=== PATIENT | female | born 1940 | race Caucasian/White ===

== ENCOUNTER → 2017-10-19 | Outpatient (CLI) | payer MEDICARE, BC ==
[2017-10-19 20:10] LABS: BASO % 0.3 % (0.0-1.0); HEMATOCRIT 36.8 % (36.0-47.0); HEMOGLOBIN 12.2 g/dl (12.0-16.0); IMMATURE GRANULOCYTE % 0.4 % (0-3.0); LYMPH # 0.6 10^3/uL (1.5-4.5); LYMPH % 7.4 % (24.0-44.0); MEAN CORPUSCULAR HEMOGLOBIN 34.5 pg (27.0-33.0); MEAN CORPUSCULAR HGB CONC 33.2 g/dl (32.0-36.5); MONO # 0.5 10^3/uL (0.0-0.8); MONO % 5.8 % (0.0-5.0); NEUTROPHILS # 6.7 10^3/uL (1.8-7.7); NEUTROPHILS % 86.1 % (36.0-66.0); PLATELET COUNT, AUTOMATED 156 10^3/uL (150-450); RED BLOOD COUNT 3.54 10^6/uL (4.00-5.40); RED CELL DISTRIBUTION WIDTH 14.4 % (11.5-14.5); WHITE BLOOD COUNT 7.7 10^3/uL (4.0-10.0)
[2017-10-19 20:19] LABS: ALBUMIN 3.3 GM/DL (3.2-5.2); ALBUMIN/GLOBULIN RATIO 1.32 (1.00-1.93); ALKALINE PHOSPHATASE 46 U/L (45-117); ALT/SGPT 15 U/L (12-78); ANION GAP 8 MEQ/L (8-16); AST/SGOT 20 U/L (7-37); BILIRUBIN,TOTAL 0.7 MG/DL (0.2-1.0); BLOOD UREA NITROGEN 15 MG/DL (7-18); CALCIUM LEVEL 8.3 MG/DL (8.8-10.2); CARBON DIOXIDE LEVEL 28 MEQ/L (21-32); CHLORIDE LEVEL 105 MEQ/L (98-107); CREATININE FOR GFR 0.95 MG/DL (0.55-1.30); GLOMERULAR FILTRATION RATE > 60.0 (>39); GLUCOSE, FASTING 90 MG/DL (70-100); SODIUM LEVEL 141 MEQ/L (136-145); TOTAL PROTEIN 5.8 GM/DL (6.4-8.2)
== END ==
LOC: M WUC 16:14
DX: J09.X2 Influenza due to identified novel influenza A virus with other respiratory manifestations (principal); I51.7 Cardiomegaly; J11.1 Influenza due to unidentified influenza virus with other respiratory manifestations
CPT/HCPCS: 80053

== ENCOUNTER → 2017-10-19 | Outpatient (CLI) | payer MEDICARE, BC | LOC: M WUC 16:08 | DX: I51.7 Cardiomegaly (principal); J11.1 Influenza due to unidentified influenza virus with other respiratory manifestations | CPT/HCPCS: 71046 ==

== ENCOUNTER → 2017-11-18 | Outpatient (REF) | payer MEDICARE, BC ==
[2017-11-18 15:56] LABS: C REACTIVE PROTEIN QUANTITATIV < 0.30 MG/DL (0.00-0.30)
[2017-11-18 16:25] LABS: ERYTHROCYTE SEDIMENTATION RATE 15 mm/hr (0-30)
== END ==
LOC: M LABDRAW1 14:06
DX: M31.6 Other giant cell arteritis (principal)
CPT/HCPCS: 86140

== ENCOUNTER → 2018-02-16 | Outpatient (REF) | payer MEDICARE, BC ==
[2018-02-16 15:13] LABS: URIC ACID 3.7 MG/DL (2.6-6.0)
== END ==
LOC: M LAB REF 13:05
DX: M10.9 Gout, unspecified (principal)
CPT/HCPCS: 84550

== ENCOUNTER → 2018-07-10 | Outpatient (CLI) | payer MEDICARE, BC | LOC: M WUC 17:01 | DX: J45.901 Unspecified asthma with (acute) exacerbation (principal); R06.02 Shortness of breath | CPT/HCPCS: 71046 ==

== ENCOUNTER → 2018-08-19 | Outpatient (REF) | payer MEDICARE, BC ==
[~2018-08-19] MED LIST: /WARF25TA; /WARF5TA; ACET65TA; ATEN25TA; ATEN50TA2; BABY81CH; BENI20TA11; COLA100C2; DIPROLENE; FERR325T; FURO20TA2; HYDR25TA6; LASI20TA; MAGN500T2; MILKSUS; MIRALEX; MULTIVIT; OMEP20TA7; OXYC10TA97; PRED10TA2; SIMV40TA2; SPIR25TA2; VICO5TAB; [UNRECOGNIZED DRUG - OTHER]; dulcolax
== END ==
LOC: M LAB REF 12:35
PROVIDERS: ATTEND Internal Medicine
DX: M10.072 Idiopathic gout, left ankle and foot (principal)

== ENCOUNTER → 2018-10-06 | Outpatient (CLI) | payer MEDICARE, BC ==
--- NOTE | 2018-10-06 13:27 | REP ---
TRIPLE PHASE BONE SCAN OF PELVIS AND HIPS: Following the intravenous administration of 22 mCi of technetium-99m MDP, patient's pelvis and hips are imaged in the flow phase in the anterior and posterior projections showing symmetrical blood flow. Immediate blood pool and 3 hour delayed images are performed of the pelvis and hips in multiple projections. There is no abnormal blood pooling. Delayed images show a photopenic area in the proximal left femur from a metallic prosthesis. No abnormal adjacent osseous uptake is seen. There is no occult fracture. There is no evidence of significant loosening or infection of the left hip prosthesis. IMPRESSION: Evidence of left hip prosthesis. No evidence of occult fracture, loosening, or infection. Electronically Signed by Jakub Whitlock MD 10/06/2018 01:34 P
== END ==
LOC: M RAD 08:44
PROVIDERS: ATTEND Physician Assistant Surgical
DX: Z96.642 Presence of left artificial hip joint (principal)
CPT/HCPCS: 78315; A9503

== ENCOUNTER → 2019-02-18 | Outpatient (REF) | payer MEDICARE, BC ==
[~2019-02-18] MED LIST changes: -/WARF25TA; -/WARF5TA; +COUM1TAB17; +COUM1TAB18
== END ==
LOC: M LAB REF 12:38
PROVIDERS: ATTEND Internal Medicine
DX: M10.072 Idiopathic gout, left ankle and foot (principal)

== ENCOUNTER → 2019-09-05 | Outpatient (CLI) | payer MEDICARE, BC ==
--- NOTE | 2019-09-05 12:31 | REP ---
LUMBAR SPINE SERIES: FIVE VIEWS. HISTORY: Pain. FINDINGS: Lumbar vertebral body heights are preserved, alignment is normal. There is extensive vascular calcification in a normal caliber aorta. There is degenerative disc disease at L5-S1 and, to a lesser extent, at the other lumbar levels. Discogenic spurring is seen at L2-3 and L1-2. There is mild wedging in the T11 vertebral body. There is osteoarthritic facet sclerosis, narrowing, and hypertrophy at L5-S1 and L4-5 bilaterally. Sacrum and SI joints are intact. There is a hip prosthesis noted on the left. Bowel gas pattern is normal. IMPRESSION: Degenerative disc and osteoarthritic facet disease, as noted above. No acute abnormality. Mild anterior wedging at T11 noted incidentally. Electronically Signed by Nicholas Mina MD 09/05/2019 01:24 P
== END ==
LOC: M WUC 10:33
PROVIDERS: ATTEND Internal Medicine
DX: M54.5 Low back pain (principal); M51.36 Other intervertebral disc degeneration, lumbar region; M53.82 Other specified dorsopathies, cervical region

== ENCOUNTER → 2019-11-30 | Outpatient (CLI) | payer MEDICARE, BC ==
--- NOTE | 2019-11-30 16:42 | REP ---
Chest x-ray: Two views. History: Short of breath. Comparison chest x-ray: July 10, 2018. Findings: The lungs are well inflated. No infiltrate is seen. Pleural angles are sharp. Heart size is borderline, unchanged. The aorta is heavily calcified and tortuous. Central pulmonary arteries are somewhat prominent, question pulmonary arterial hypertension. This is unchanged. There are degenerative changes in the thoracic spine. Impression: Borderline heart size. Centrally prominent pulmonary arterial tree, question pulmonary arterial hypertension. Unchanged. No acute infiltrate. Electronically Signed by Nicholas Mina MD 11/30/2019 05:08 P
[2019-11-30 20:29] LABS: BASO # 0.1 10^3/uL (0.0-0.2); BASO % 0.5 % (0.0-1.0); EOS % 0.2 % (0.0-3.0); HEMATOCRIT 36.8 % (36.0-47.0); HEMOGLOBIN 11.5 g/dl (12.0-15.5); LYMPH # 1.8 10^3/uL (1.5-5.0); LYMPH % 16.2 % (24.0-44.0); MEAN CORPUSCULAR HEMOGLOBIN 34.1 pg (27.0-33.0); MEAN CORPUSCULAR HGB CONC 31.3 g/dl (32.0-36.5); MEAN CORPUSCULAR VOLUME 109.2 fl (80.0-96.0); MONO # 0.9 10^3/uL (0.0-0.8); MONO % 7.7 % (0.0-5.0); NEUTROPHILS # 8.1 10^3/uL (1.5-8.5); NEUTROPHILS % 71.1 % (36.0-66.0); PLATELET COUNT, AUTOMATED 215 10^3/uL (150-450); RED BLOOD COUNT 3.37 10^6/uL (4.00-5.40); WHITE BLOOD COUNT 11.4 10^3/uL (4.0-10.0)
[2019-11-30 20:34] LABS: CREATININE FOR GFR 1.08 MG/DL (0.55-1.30); GLOMERULAR FILTRATION RATE 52.1 (>39); POTASSIUM SERUM 4.2 MEQ/L (3.5-5.1)
== END ==
LOC: M WUC 16:01
PROVIDERS: ATTEND Nurse Practitioner Family
DX: I28.8 Other diseases of pulmonary vessels (principal); R06.02 Shortness of breath; R60.9 Edema, unspecified

== ENCOUNTER 2019-12-15 12:34 | Inpatient (IN) | payer MEDICARE, BC ==
[~2019-12-15] VITALS: Ht 152.4 cm; Wt 88.0 kg
[~2019-12-15 12:34] MED LIST changes: -ACET1TAB55 PO; -FURO20TA2 PO; -OLME20TA2 PO; +OLMESARTAN MEDOXOMIL 20 MG TAB (BENICAR) PO SCH; -OMEP-218 PO; -RALO1TAB PO; -SIMV40TA20 PO; -SPIR-10 PO
[2019-12-15 13:50] LABS: BASO % 0.3 % (0.0-1.0); EOS # 0.1 10^3/uL (0.0-0.5); EOS % 1.1 % (0.0-3.0); HEMATOCRIT 34.8 % (36.0-47.0); LYMPH # 1.4 10^3/uL (1.5-5.0); MEAN CORPUSCULAR HEMOGLOBIN 34.1 pg (27.0-33.0); MEAN CORPUSCULAR HGB CONC 31.6 g/dl (32.0-36.5); MEAN CORPUSCULAR VOLUME 107.7 fl (80.0-96.0); MONO # 0.5 10^3/uL (0.0-0.8); MONO % 7.6 % (0.0-5.0); NEUTROPHILS # 4.2 10^3/uL (1.5-8.5); NEUTROPHILS % 67.2 % (36.0-66.0); PLATELET COUNT, AUTOMATED 173 10^3/uL (150-450); RED BLOOD COUNT 3.23 10^6/uL (4.00-5.40); WHITE BLOOD COUNT 6.2 10^3/uL (4.0-10.0)
[2019-12-15] MEDS: SLF 3 ML SYR IV SCH ×2 (14:00→20:05)
[2019-12-15 14:03] LABS: INR 1.12; PROTHROMBIN TIME 14.1 SECONDS (11.8-14.0)
[2019-12-15 14:04] LABS: PARTIAL THROMBOPLASTIN TIME 29.1 SECONDS (25.0-38.4)
[2019-12-15 14:15] LABS: MAGNESIUM LEVEL 0.6 MG/DL (1.8-2.4); PHOSPHORUS LEVEL 3.8 MG/DL (2.5-4.9)
--- NOTE | 2019-12-15 14:21 | REP ---
Bilateral lower extremity Duplex Doppler venous ultrasound: Real time compression and duplex Doppler interrogation of the bilateral lower extremity deep venous system is performed. Bilaterally, the common femoral, superficial femoral and popliteal veins are fully compressible with transducer pressure and demonstrate normal spontaneous and phasic flow, without evidence of deep venous thrombosis. Impression: No evidence of deep venous thrombosis of the bilateral lower extremity femoral popliteal venous system. Electronically Signed by Jakub Whitlock MD 12/15/2019 02:12 P
[2019-12-15 14:23] LABS: ALBUMIN 2.8 GM/DL (3.2-5.2); ALT/SGPT 15 U/L (12-78); BILIRUBIN,DIRECT 0.1 MG/DL (0.0-0.2); BILIRUBIN,TOTAL 0.4 MG/DL (0.2-1.0); BLOOD UREA NITROGEN 36 MG/DL (7-18); CALCIUM LEVEL 6.8 MG/DL (8.8-10.2); CARBON DIOXIDE LEVEL 27 MEQ/L (21-32); CHLORIDE LEVEL 108 MEQ/L (98-107); CK-MB VALUE MASS 1.5 NG/ML (<3.6); CPK CREATINE PHOSPHOKINASE 111 U/L (26-192); CREATININE FOR GFR 1.32 MG/DL (0.55-1.30); GLOMERULAR FILTRATION RATE 41.3 (>39); GLUCOSE, FASTING 80 MG/DL (70-100); MB/CK RELATIVE INDEX 1.35 (< OR =4); NT-PRO BNP 813 PG/ML (<450); POTASSIUM SERUM 3.8 MEQ/L (3.5-5.1); SODIUM LEVEL 140 MEQ/L (136-145); TOTAL PROTEIN 6.4 GM/DL (6.4-8.2); TROPONIN I < 0.02 NG/ML (< 0.10)
[2019-12-15] MEDS ORDERED: ACET1TAB55 PO (14:37)
[2019-12-15] MEDS ORDERED: OLME20TA2 PO (14:37)
[2019-12-15] MEDS ORDERED: FURO20TA2 PO (14:38)
[2019-12-15] MEDS ORDERED: SPIR-10 PO (14:38)
[2019-12-15] MEDS ORDERED: SIMV40TA20 PO (14:38)
[2019-12-15] MEDS ORDERED: ATEN25TA PO (14:38)
[2019-12-15] MEDS ORDERED: OMEP-218 PO (14:38)
[2019-12-15] MEDS ORDERED: RALO1TAB PO (14:40)
--- NOTE | 2019-12-15 14:41 | REP ---
REASON: Cough and dyspnea. COMPARISON: 11/30/2019 The technique utilized in obtaining the radiograph has magnified the cardiac silhouette and accentuated the interstitial markings. No acute patchy parenchymal opacities or pleural effusions have developed since the last exam. The cardiac silhouette is magnified by technique. The osseous structures are stable and intact. IMPRESSION: No significant change other than technique. There is no evidence of acute cardiopulmonary disease. Prominent central pulmonary venous engorgement suspected on the prior examination appears less prominent on this portable examination. Electronically Signed by Calos Redman DO 12/15/2019 04:24 P
[2019-12-15] MEDS ORDERED: MAG SULF 1GM/100ML (MAG RUN) 1 GM in IV 1 EA IV ONE ×5 (15:00→15:15)
[2019-12-15] MEDS ORDERED: MAGNESIUM OXIDE 400 MG TAB (MAG-OX) PO ONE (15:00)
[2019-12-15] MEDS ORDERED: ACETAMINOPHEN TAB 650MG DOSE (2X325MG) PO PRN (15:15)
[2019-12-15] MEDS ORDERED: MAGNESIUM SULFATE 1GM/100ML D5W BAG (10MG/ML) As Ordered ONE (16:29)
[2019-12-15] MEDS ORDERED: SLF 3 ML SYR IV PRN (17:45)
[2019-12-15 17:47] VITALS: BP 154/61
--- NOTE | 2019-12-15 18:51 | HPEPDOC ---
General Date of Admission Dec 15, 2019 at 15:01 Date of Service: Dec 15, 2019 Attending Physician: JOHNNY DUFFY MD Chief Complaint The patient is a 79-year-old female admitted with a reason for visit of Hypocalcemia. Source: Patient Exam Limitations: No limitations Timing/Duration: Week(s) Severity: Severe Associated Symptoms: Other (arthralgias and myalgias) History of Present Illness 79 yo W with a remote history of cervical, uterine and ovarian CA >30y ago, HTN, HLD, osteoporosis and long standing history of LE edema that has progressive gotten worse over time and most recently her PCP has been trying to manage with uptitration of lasix and aldactone without my improvement who presented to per PCP with profound generalized body aches of a few weeks duration as well SOB and on labs was found to have a MAg of 0.4 and thus send to the ED. In the ED, she arrived hemodynamically stable and afebrile and initial workup revealed a mag of 0.6, Ca 6.8, K 3.8, Cr 1.32, Na 140, phos 3.8, proBNP of 813 which is lower than previously recorded with an EKG that was NSR with frequent PVCs (not AFib) while troponin was wnl. She had CXR that was unremarkable and LE dopplers that did not reveal a DVT. Due to her SOB, body aches she was ordered for respiratory panel and covid-19 studies. her WBC was otherwise 6.2, hgb 11 and LFTs were wnl. I am now admitting her for profound hypomagnesemia that was likely precipitated by her combination loop diuretic and aldactone. She report one glass of wine nightly without excessive alcohol, prior smoking history and no recent history of N/V/D. Home Medications Scheduled Atenolol (Atenolol) 25 Mg Tablet, 25 MG PO QHS, (Reported) Furosemide (Furosemide) 20 Mg Tablet, 20 MG PO BID, (Reported) 0700 and noon Olmesartan Medoxomil (Olmesartan Medoxomil) 20 Mg Tablet, 20 MG PO DAILY, ( Reported) Omeprazole (Omeprazole) 20 Mg Capsule.dr, 20 MG PO QHS, (Reported) Raloxifene HCl (Raloxifene HCl) 60 Mg Tablet, 60 MG PO DAILY, (Reported) Simvastatin (Simvastatin) 40 Mg Tablet, 40 MG PO QHS, (Reported) Spironolactone (Spironolactone) 25 Mg Tablet, 25 MG PO DAILY, (Reported) Scheduled PRN Acetaminophen (Acetaminophen) 325 Mg Tablet, 325 MG PO DAILY PRN for PAIN, (Reported) Allergies Coded Allergies: atorvastatin (Verified Allergy, Intermediate, 12/15/19) Uncoded Allergies: something with a "p" for pain (Allergy, Intermediate, 12/15/19) " some" antibiotic (Allergy, Unknown, 12/15/19) Past Medical History Medical History cervical, uterine and ovarian CA >30y ago, HTN, HLD, osteoporosis and long standing history of LE edema that has progressive gotten worse over time and most recently her PCP has been trying to manage with uptitration of lasix and aldactone Surgical History Exploratory lap christ hysterectomy L total hip arthroplasty Family History Significant Family History: Cancer (Very significant history of cancer in her mother and all her biological sisters. She has never been tested for a familial cancer syndrome despite uterine, ovarian and cervial CA in her 30-40s.) Social History * Smoker: former Smoker Alcohol: other (daily glass of wine before bed) Drugs: denies Lives alone and completely independent with all aspects of her life. Daughter lives close by in town. A-FIB/CHADSVASC A-FIB History Current/History of A-Fib/PAF?: No Current PO Anticoag Therapy: No Age/Risk Factor Scoring CHADSVASC: CHADSVASC Response (Comments) Value Age Risk Factor Age >/= 75 years old 2 Gender Risk Factor Female 1 Hx of CHF No 0 Hx of HTN Yes 1 Hx of Stroke/TIA/or VTE No 0 Hx of Diabetes No 0 Hx of Vascular Disease No 0 Total 4 Treatment Treatment ordered: NONE Reason Anticoagulant not given: Not indicated/[id number] Review of Systems Constitutional: Denies: Chills, Fever, Night Sweats Eyes: Denies: Pain, Vision change ENT: Denies: Head Aches, Ear Pain, Dysphagia Skin: Denies: Rash, Lesions, Breakdown Pulmonary: Reports: Dyspnea; Denies: Cough, Pleuritic Chest Pain Cardiovascular: Denies: Chest Pain, Palpitations, Orthopnea, Paroxysmal Noc. Dyspnea, Lt Headedness Gastrointestinal: Denies: Nausea, Vomiting, Abdominal Pain, Diarrhea Genitourinary: Denies: Dysuria, Frequency, Incontinence, Retention Hematologic: Denies: Bruising, Bleeding Excessively Endocrine: Denies: Polydipsia, Polyphagia, Polyuria, Heat Intolerance, Cold Intolerance, Other Endocrine Sx Musculoskeletal: Reports: Back Pain (chronic), Joint Pain, Muscle Pain Neurological: Denies: Weakness, Numbness, Change in speech, Confusion Psych: Reports: Mood Normal; Denies: Depression, Memory Issues Physical Examination General Exam: Positive: Alert, No Acute Distress Eye Exam: Positive: PERRLA, Conjunctiva & lids normal, EOMI; Negative: Sclera icteric ENT Exam: Positive: Atraumatic, Mucous membr. moist/pink, Pharynx Normal Neck Exam: Positive: Supple; Negative: JVD, thyromegaly Chest Exam: Positive: Clear to auscultation, Normal air movement Heart Exam: Positive: Rate Normal, Regular Rhythm (with significant PVC and PAC load), Normal S1, Normal S2; Negative: Murmurs, Rubs Telemetry: Positive: Sinus, PVCs Abdomen Exam: Positive: Normal bowel sounds, Soft, Other (obese); Negative: Tenderness, Hepatospenomegaly Extremity Exam: Positive: Edema (2+ dependent edemat to midshins) Skin Exam: Positive: Nl turgor and temperature; Negative: Breakdown, Lesion Neuro Exam: Positive: Normal Gait, Normal Speech, Strength at 5/5 X4 ext, Cranial Nerves 3-12 NL Psych Exam: Positive: Mental status NL, Mood NL, Oriented x 3 Vital Signs Vital Signs Date Time Temp Pulse Resp B/P (MAP) Pulse Ox O2 Delivery O2 Flow Rate FiO2 12/15/19 18:00 95 Nasal Cannula 2.0 12/15/19 17:47 97.0 78 154/61 (92) 12/15/19 17:31 99 Laboratory Data Labs 24H Laboratory Tests 2 12/15/19 13:15: Immature Granulocyte % (Auto) 0.8, Neutrophils (%) (Auto) 67.2H, Lymphocytes (%) (Auto) 23.0L, Monocytes (%) (Auto) 7.6H, Eosinophils (%) (Auto) 1.1, Basophils (%) (Auto) 0.3, Neutrophils # (Auto) 4.2, Lymphocytes # (Auto) 1.4L, Monocytes # (Auto) 0.5, Eosinophils # (Auto) 0.1, Basophils # (Auto) 0.0, Nucleated Red Blood Cells % (auto) 0.0, Prothrombin Time 14.1H, Prothromb Time International Ratio 1.12, Activated Partial Thromboplast Time 29.1, Anion Gap 5L, Glomerular Filtration Rate 41.3, Calcium Level 6.8L, Phosphorus Level 3.8, Magnesium Level 0.6*L, Total Bilirubin 0.4, Direct Bilirubin 0.1, Aspartate Amino Transf (AST/SGOT) 15, Alanine Aminotransferase (ALT/SGPT) 15, Alkaline Phosphatase 58, Total Creatine Kinase 111, Creatine Kinase MB 1.5, Creatine Kinase MB Relative Index 1.35, Troponin I < 0.02, TM-Sgk-A-Type Natriuretic Peptide 813H, Total Protein 6.4, Albumin 2.8L, Albumin/Globulin Ratio 0.78L, Thyroid Stimulating Hormone (TSH) 1.490 12/15/19 16:20: Coronavirus (COVID-19)(PCR) NEGATIVE CBC/BMP Laboratory Tests 12/15/19 13:15 Microbiology Microbiology 12/15/19 Respiratory Virus Panel (PCR) ([facility]) - Final, Complete 12/15/19 Blood Culture, Received Pending 12/15/19 Blood Culture, Received Pending Assessment/Plan 79 yo W with a remote history of cervical, uterine and ovarian CA >30y ago, HTN, HLD, osteoporosis and long standing history of LE edema that has progressive gotten worse over time and most recently her PCP has been trying to manage with uptitration of lasix and aldactone without my improvement who presented to per PCP with profound generalized body aches of a few weeks duration as well SOB and on labs was found to have a MAg of 0.4 and thus send to the ED and now admitted for profound hypomagnesemia likely precipitated by her combination loop diuretic and aldactone. Hypomagnesemia: Most likely 2/2 loop + potassium sparing diuretics, less likely to be syndromic given no prior history though it should be noted that Ca is low as well. Unlikely 2/2 excessive alcohol given history and unlikely GI losses given no GI complaints or symptoms. -s/p 3g mag in the ED, recheck now -telemetry monitoring -hold all diuretics Generalized body aches: Likely a result of hypomagnesemia and also on raloxifene for her osteoporosis that has such side effects. -replete mag aggressively HypoCa: -gave 1g Ca gluconate, recheck in the morning LE edema: No official diagnosis of CHF or known etiology with diuresis by PCP outpatient -will officially consult Dr. Harrison -TTE -EKG with no ischemic signs and trop negative while proBNP is elevated by lower than previously noted -Will hold off diuresis for now as we replete lytes and await TTE -Of note, albumin <3 though unlikely that low oncotic pressure would be the sole culprit HTN: -continue home ARB for now SOB: No evidence of hypoxemia at this time though she was placed on oxygen in the ED with clear CXR, no fevers, no travel and baseline WBC. -follow up resp PCR and Covid testing HLD: -continue simvastatin GERD: -continue home omeprazole DVT ppx: lovenox Diet: regular Plan / VTE VTE Prophylaxis Ordered?: Yes JOHNNY DUFFY MD Dec 15, 2019 18:50
[2019-12-15] MEDS ORDERED: CALCIUM GLUCONATE 1,000 MG in D5W MINI-BAG PLUS 100 ML IV ONE (19:00)
[2019-12-15 20:00] VITALS: BP 139/64
[2019-12-15] MEDS: ENOXAPARIN 40MG/0.4ML SYRINGE (J1650 PER 10MG) SC SCH (20:02)
[2019-12-15] MEDS: SIMVASTATIN 40 MG TAB PO SCH (20:04)
[2019-12-15] MEDS: OMEPRAZOLE 20 MG CAP PO SCH (20:04)
[2019-12-15] MEDS: atenoloL 25 MG TAB PO SCH (20:04)
[2019-12-15] MEDS: OLMESARTAN MEDOXOMIL 20 MG TAB (BENICAR) PO SCH (20:04)
--- NOTE | 2019-12-15 20:49 | ECGEPIP ---
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
[2019-12-16] VITALS: BP 133/53
[2019-12-16 04:00] VITALS: BP 150/65
[2019-12-16 06:10] LABS: HEMATOCRIT 32.4 % (36.0-47.0); HEMOGLOBIN 10.5 g/dl (12.0-15.5); MEAN CORPUSCULAR HEMOGLOBIN 35.4 pg (27.0-33.0); MEAN CORPUSCULAR HGB CONC 32.4 g/dl (32.0-36.5); MEAN CORPUSCULAR VOLUME 109.1 fl (80.0-96.0); PLATELET COUNT, AUTOMATED 163 10^3/uL (150-450); RED BLOOD COUNT 2.97 10^6/uL (4.00-5.40); WHITE BLOOD COUNT 5.8 10^3/uL (4.0-10.0)
[2019-12-16] MEDS: SLF 3 ML SYR IV SCH ×3 (06:38→21:26)
[2019-12-16 06:39] LABS: ALBUMIN 2.5 GM/DL (3.2-5.2); BILIRUBIN,TOTAL 0.6 MG/DL (0.2-1.0); CALCIUM LEVEL 7.1 MG/DL (8.8-10.2); CREATININE FOR GFR 1.22 MG/DL (0.55-1.30); GLOMERULAR FILTRATION RATE 45.3 (>39); MAGNESIUM LEVEL 1.7 MG/DL (1.8-2.4); POTASSIUM SERUM 4.8 MEQ/L (3.5-5.1); TOTAL PROTEIN 5.3 GM/DL (6.4-8.2)
[2019-12-16] MEDS ORDERED: CALCIUM GLUCONATE 1,000 MG in D5W MINI-BAG PLUS 100 ML IV ONE (07:30)
[2019-12-16] MEDS ORDERED: CALCIUM CARBONATE 500 MG CHEW U/D PO ONE (07:30)
[2019-12-16 08:00] VITALS: BP 106/46
[2019-12-16 08:08] LABS: PTH INTACT 270.2 PG/ML (18.5-88.0)
[2019-12-16] MEDS: ENOXAPARIN 40MG/0.4ML SYRINGE (J1650 PER 10MG) SC SCH ×2 (09:00→21:00)
[2019-12-16] MEDS: MAG SULF 1GM/100ML (MAG RUN) 1 GM in IV 1 EA IV SCH ×3 (09:29→12:02)
[2019-12-16 11:58] VITALS: BP 133/62
[2019-12-16 16:00] VITALS: BP 148/70
--- NOTE | 2019-12-16 16:19 | IPNPDOC ---
Text Note Date of Service The patient was seen on 12/16/19. NOTE S: Pt examined at bedside. Feels much improved today, almost back to her baseline. Has more energy, leg cramps are minimal. Ambulated from bed to the bathroom with mild shortness of breath. No events overnight. Continues to have ectopy on telemetry, patient asymptomatic. Denies chest pain, lightheadedness, dizziness, palpitations. PE: Vitals: see below General: NAD, A&Ox3, resting comfortably HEENT: NCAT, EOMI, anicteric sclera, MMM, neck supple without JVD CV: RRR, 2/6 murmur, no clicks or rub. 2-3+ edema b/l LE RESP: CTAB, no w/r/r, comfortably breathing on room air ABD: soft, NT, ND. Benign EXTREMITIES: 2+ radial pulses b/l, able to move all extremities NEURO: no focal deficits. Follows commands SKIN: no visible lesions A/P: This is a 79-year-old female sent in by her PCP due to dangerously low magnesium of 0.6 and calcium 6.8. Patient's only complaints were leg cramps, edema, and shortness of breath that her chronic for the past few years, recently worsened over the past few weeks. Per patient, her diuretics had been uptitrated over the past couple weeks in attempts to control her edema. 1. Hypocalcemia, hypomagnesemia -Magnesium 0.6 and calcium 6.8 on admission, improving with supplement -Patient is hemodynamically stable and only complains of muscle cramps more in the lower legs -Likely multifactorial: increasing diuretics in outpatient setting and CKD; likely also VitD defic -PTH appropriately elevated -Continue supplementation and trend levels: IV Calcium gluconate & IV Mag -Monitor telemetry; hold home diuretics until levels normalize 2. Lower extremity edema, dyspnea -Patient reports this is in chronic for the past few years, recently worsened over the past couple weeks -Blood cultures and respiratory panel & COVID testing negative. No fevers or leukocytosis -Likely 2/2 right-sided heart failure. CXR notes prominent central pulmonary vein -No cardiac records available. No echo on file -Echo ordered. Continue monitoring telemetry and strict I's and O's and daily weight -Will resume diuretics once electrolytes are improved 3. Ectopic beats, bigeminy -Noted on telemetry and EKG. Cardiac markers negative -Likely 2/2 electrolyte abnormality. Patient otherwise asymptomatic -Given her electrolyte abnormalities and patient requiring resumption of diuretics ultimately, Cardio consulted -Dr. Harrison to see patient, appreciate input -Continue monitoring on telemetry 4. Leg cramps -Likely 2/2 electrolytes abnormalities and significant lower extremity edema -Bilateral Doppler on admission negative for DVT -Improving with electrolyte replacement. Monitor 5. Likely CKD 3 -No prior labs available to compare to -Trend renal function monitor Hypertension Controlled, continue home meds, holding diuretics GERD Continue PPI Dyslipidemia Continue statin DVT ppx: Lovenox SC DISPO: Pending clinical improvement with home PT, OT, cardio consult. VS,Fishbone, I+O VS, Fishbone, I+O Laboratory Tests 12/16/19 05:47 Vital Signs Date Time Temp Pulse Resp B/P (MAP) Pulse Ox O2 Delivery O2 Flow Rate FiO2 12/16/19 12:00 0.5 12/16/19 11:58 97.4 66 22 133/62 (85) 94 Nasal Cannula I&O- Last 24 Hours up to 6 AM 12/16/19 06:00 Intake Total 590 ml Output Total 550 ml Balance 40 ml GME ATTESTATION GME ATTESTATION My faculty preceptor for this patient encounter was physically present during the encounter and was fully available. All aspects of the patient interview, examination, medical decision making process, and medical care plan development were reviewed and approved by the faculty preceptor. The faculty preceptor is aware and concurs with the plan as stated in the body of this note and will attest to such by his/her cosignature. ATTENDING NOTE I, Ariella Duffy, have independently examined this patient and performed my own physical exam, as well as reviewed the documentation and edited where necessary. I have discussed in detail with the resident / student the findings and plan of treatment as documented by the resident / student and edited their note. I agree with their findings and treatment plan and have edited their documentation. Ms. Barth feels much better today and her electrolytes are correcting well. Unfortunately with all the volume from IV electrolyte repletion and holding of diuretics, her LE edema is worse. She is pending TTE and we officially consulted Dr. Harrisno. Her PAC load remained high today with rare PVCs. We will continue to follow the patient during this hospital stay. SERJIO JUARES DO Dec 16, 2019 16:19 ARIELLA DUFFY MD Dec 17, 2019 07:37
--- NOTE | 2019-12-16 16:54 | CR.PDOC ---
[facility] Cardiology Consultation Date of Consultation 12/16/19 Cadiology Consultation REFERRING PHYSICIAN: Dr. Ariella Rodriges M.D., Ph.D. REASON FOR REFERRAL: Bilateral lower extremity edema; frequent PVCs HISTORY OF PRESENT ILLNESS: Delia is a pleasant 79-year-old female with history of hypertension, hyperlipidemia, chronic bilateral lower extremity edema, and remote history (>30y ago) of ovarian, uterine, and cervical cancer who presented to the emergency department yesterday after being sent over by her primary care physician due to hypomagnesemia (Mg 0.4), shortness of breath, lower extremity aches and skin sensitivity with chronic bilateral edema. In the ED, she was found to also have hypocalcemia (6.8), BNP 813, Cr 1.32 (bl roughly 1), Hgb 11.0/MCV 107, EKG with normal heart rate and frequent PVCs, and unremarkable cardiac enzymes. Portable chest x-ray showed no acute cardiopulmonary disease, and no evidence of DVT in either lower extremity on ultrasound. Patient was subsequently admitted and the primary hospitalist service consulted cardiology in the evaluation and care specific to patient's abnormal heartbeats, and etiology of her lower extremity edema. To this point, patient has received four, 100 mL IV mag sulfate doses (1 given today) and one, 1g stat Mg run; 800 mg of oral mag oxide; two, 110 mL calcium gluconate IV doses (1 given today); one dose of 1000 mg calcium carbonate. She is currently also receiving oral atenolol (25 mg qhs), simvastatin (40mg qhs), and omeprazole (20mg qhs). Per medical record, patient refused her scheduled olmesartan (40mg qhs) and Lovenox (40 mg q12h) administration since being admitted. Her home spironolactone and furosemide were held due to the acute electrolyte abnormalities. Patient currently endorses exertional dyspnea only, but denies any increased work of breathing, pleuritic chest pain, and cough. Upon ambulation to the bathroom last night, her sats dropped into the 80s and she was subsequently put on 4 L nasal cannula. She was weaned off supplemental oxygen overnight and through the first half of the day today. She is now breathing on room air. She also endorses bilateral lower extremity skin sensitivity and "bone pain" on the outside of her legs. In addition, she currently denies any chest pain, chest pressure, palpitations, syncope, lightheadedness, or dizziness. PAST MEDICAL: Hypertension Hyperlipidemia Chronic lower extremity edema Remote history of uterine, ovarian, and cervical cancer (>30 years ago, patient was in 30s and 40s) Osteoporosis SURGICAL HISTORY: Cardiac catheterization, 1983- no stents or balloon angioplasty place/performed Hysterectomy Cholecystectomy Left total hip arthroplasty FAMILY HISTORY: Significant cancer history in mother and sisters SOCIAL HISTORY: Mother of 4 children (2 sons, 2 daughters) Lives alone with one daughter that lives nearby Former cigarette smoker who smoked roughly a pack per day for 62 years Drinks a glass of wine daily before bed Denies illicit drug history REVIEW OF SYSTEMS: Please see detailed pertinent positives and negatives in HPI. All other 10 point review of systems questions negative. PHYSICAL EXAMINATION: VITAL SIGNS: Please see below. GENERAL APPEARANCE: Pleasant elderly female who appears stated age. Lying upright in bed at time of exam. Obese habitus. Alert and oriented 3. NAD. HEENT: Normocephalic, atraumatic. Wearing eyeglasses. Noninjected and anicteric sclera. NECK: Supple. Trachea midline. No significant elevated jugular venous pressure (approx 2cm superior to clavicle) EXTREMITIES: Skin of bilateral lower extremities warm to the touch with moderate surrounding erythema. Bilateral calf tenderness. NEUROLOGIC: Alert and oriented 3. No focal neurological deficits appreciated. Responding appropriate to questions and commands. PSYCHOLOGIC: Pleasant individual with mildly anxious mood. Affect appears appropriate. RESPIRATORY: Right upper to middle lobe. Findings were crackles. Slight audible wheeze. Mildly tachypneic. Somewhat diminished tidal volume with moderate use of accessory muscles. Breathing on room air. Speaking in full sentences. HEART: Controlled heart rate with trigeminy on remote telemetry. One isolated PVC while observing monitor. 2/6 systolic murmur heard upon b/l carotid auscultation and heard best over the second intercostal space parasternally. 2-3 sec capillary refill. ARTERIAL PULSES: 2+ b/l radial pulses; difficult to appreciate for b/l post tibial pulses d/t LE & pedal edema LOWER EXTREMITY EDEMA: 3+ pitting edema of b/l LEs with b/l 2+ pitting pedal edema. ABDOMEN: Soft, obese. Nontender and nondistended. Positive bowel sounds. Difficult to appreciate for hepatosplenomegaly due to habitus. ALLERGIES: Please see below. HOME MEDICATIONS: Please see below. CURRENT MEDICATIONS: Please see below. Electrocardiogram: EKG on 12/15/19 showed sinus rhythm with frequent supraventricular complexes and PVCs. LABORATORY DATA: Please see below. IMAGING: Portable chest x-ray, 12/15/19: Showed no acute cardiopulmonary Rosses with decrease in engorgement of central pulmonary vein from previous study on 11/30/19. Bilateral lower extremity Doppler ultrasound, 12/15/19: Showed no DVT in bilateral lower extremities. ASSESSMENT/PLAN: Delia is a 79-year-old female with history of chronic lower extremity edema, hypertension, hyperlipidemia who was admitted for significant electrolyte abnormalities (primarily hypomagnesemia) with frequent PVCs. The main focus from a cardiology perspective at this time is the etiology of the patient's PVCs. The three most common causes of PVCs are electrolyte disturbances, ischemia, and cardiomyopathies. The patient's electrolyte abnormalities are currently being corrected, there does not appear to be an ischemic component based on her non-elevated trops, and any possible cardiomyopathies will be identified upon review of today's echo. The patient's most recent echocardiogram was on 03/17/2018; it showed a normal LVEF, minimal aortic stenosis, trace pericardial effusion, mild concentric LV hypertrophy, moderate hypertensive heart disease, abnormal relaxation of LV diastolic function, mildly dilated left atrium (4.8 cm), and mild tricuspid valve insufficiency. In most cases, PVCs are not usually treated. Should no other likely cause of our patient's PVCs be identified, the percentage of PVCs with respect to total number of beats will be calculated. Usually if PVCs represent less than 10% of beats, no intervention is warranted; should they represent greater than 30% of beats, ablation is usually indicated. It is recommended that patient remain on her beta sammi for now (atenolol; per pt, has taken for 20y). She is hemodynamically stable and relatively asymptomatic. Should review of today's echo not show significant left ventricu lar dysfunction, and patient's PVCs are continuing, we may try adding verapamil. An outpatient stress test may be a possibility down the line to further assess for any coronary ischemia. Thank you kindly for the opportunity to participate in Delia's care. We will continue to follow her and welcome any questions or concerns that may arise from a cardiology standpoint. Vital Signs/I&O Vital Signs Date Time Temp Pulse Resp B/P (MAP) Pulse Ox O2 Delivery O2 Flow Rate FiO2 12/16/19 12:00 0.5 12/16/19 11:58 97.4 66 22 133/62 (85) 94 Nasal Cannula I&O- Last 24 Hours up to 6 AM 12/16/19 06:00 Intake Total 590 ml Output Total 550 ml Balance 40 ml Laboratory Data Labs 24H Laboratory Tests 2 12/15/19 16:20: Coronavirus (COVID-19)(PCR) NEGATIVE 12/15/19 21:26: Magnesium Level 1.8 12/16/19 05:47: Magnesium Level 1.7L, Nucleated Red Blood Cells % (auto) 0.0, Anion Gap 3L, Glomerular Filtration Rate 45.3, Calcium Level 7.1L, Total Bilirubin 0.6, Aspartate Amino Transf (AST/SGOT) 16, Alanine Aminotransferase (ALT/SGPT) 14, Alkaline Phosphatase 46, Total Protein 5.3L, Albumin 2.5L, Albumin/Globulin Rat io 0.89L, Parathyroid Hormone (Intact) 270.2H CBC/BMP Laboratory Tests 12/16/19 05:47 Microbiology Microbiology 12/15/19 Respiratory Virus Panel (PCR) ([facility]) - Final, Complete 12/15/19 Blood Culture - Preliminary, Resulted No growth after 24 hours . All specim... 12/15/19 Blood Culture - Preliminary, Resulted No growth after 24 hours . All specim... Home Medications Scheduled Atenolol (Atenolol) 50 Mg Tablet, 50 MG PO DAILY Furosemide (Furosemide) 20 Mg Tablet, 20 MG PO DAILY daily Magnesium Oxide (Magnesium Oxide) 400 Mg Tablet, 800 MG PO DAILY Olmesartan Medoxomil (Olmesartan Medoxomil) 20 Mg Tablet, 20 MG PO DAILY, (Reported) Omeprazole (Omeprazole) 20 Mg Capsule.dr, 20 MG PO QHS, (Reported) Raloxifene HCl (Raloxifene HCl) 60 Mg Tablet, 60 MG PO DAILY, (Reported) Rosuvastatin Calcium (Rosuvastatin Calcium) 20 Mg Tablet, 1 TAB PO DAILY Spironolactone (Spironolactone) 25 Mg Tablet, 25 MG PO DAILY, (Reported) Scheduled PRN Acetaminophen (Acetaminophen) 325 Mg Tablet, 325 MG PO DAILY PRN for PAIN, (Reported) Current Medications Current Medications Medications (Trade) Dose Ordered Sig/Sincere Route PRN Reason Start Time Stop Time Status Last Admin Dose Admin Acetaminophen (Tylenol Tab) 650 mg Q4H PRN PO PAIN OR FEVER 12/15/19 15:15 Atenolol (Tenormin) 25 mg QHS PO 12/15/19 21:00 12/15/19 20:04 Enoxaparin Sodium (Lovenox) 40 mg BID SC 12/15/19 21:00 12/15/19 20:02 Home Med (Med Rec Complete!) ASDIRECTED XX 12/15/19 14:45 12/15/19 14:45 DC Magnesium Sulfate/ Dextrose 1 gm/IV Miscellaneous Supplies 100 ml @ 100 mls/hr Q1H IV 12/16/19 08:00 12/16/19 10:59 DC 12/16/19 12:02 Olmesartan (Benicar) 20 mg DAILY PO 12/15/19 09:00 12/15/19 18:55 DC Olmesartan (Benicar) 20 mg QHS PO 12/15/19 21:00 12/15/19 20:04 Omeprazole (PriLOSEC) 20 mg QHS PO 12/15/19 21:00 12/15/19 20:04 Simvastatin (Zocor) 40 mg QHS PO 12/15/19 21:00 12/15/19 20:04 Sodium Chloride (Saline Lock Flush) 2 ml ASDIRECTED PRN IV SEE LABEL COMMENTS 12/15/19 17:45 Sodium Chloride (Saline Lock Flush) 2 ml SLF IV 12/15/19 14:00 12/16/19 06:38 Allergies Allergies: Coded Allergies: atorvastatin (Verified Allergy, Intermediate, 12/15/19) Uncoded Allergies: something with a "p" for pain (Allergy, Intermediate, 12/15/19) " some" antibiotic (Allergy, Unknown, 12/15/19) CLYDE HOOPER D.O. Dec 16, 2019 16:54 CECILIA SMALLWOOD MD Dec 18, 2019 20:06
[2019-12-16 20:00] VITALS: BP 148/62
[2019-12-16] MEDS: SIMVASTATIN 40 MG TAB PO SCH (21:25)
[2019-12-16] MEDS: atenoloL 25 MG TAB PO SCH (21:25)
[2019-12-16] MEDS: OLMESARTAN MEDOXOMIL 20 MG TAB (BENICAR) PO SCH (21:25)
[2019-12-16] MEDS: OMEPRAZOLE 20 MG CAP PO SCH (21:25)
--- NOTE | 2019-12-16 23:33 | ECHO ---
DATE OF PROCEDURE: 12/16/2019 REFERRING PHYSICIAN: Dr. Ariella Dubois PATIENT LOCATION: Room 3223 REASON FOR STUDY: Cardiac arrhythmias. 2D MEASUREMENTS: IVS: 1.0 cm LV: 4.6 cm LVPW: 1.2 cm LA: 4.1 cm Aorta: 2.3 cm IVC: 1.6 cm DOPPLER MEASUREMENTS: Peak velocity across the aortic valve: 2.0 meters per second Peak velocity across the LVOT: 0.66 meters per second Mitral E: 1.2, Mitral A: 1.0 with a ratio of 1.2 Maximum tricuspid valve velocity: 2.6 meters per second 2D COMMENTS: 1. Normal left ventricular size, wall thickness, and normal global left ventricular systolic function. The estimated left ventricular systolic ejection fraction is 60-65%. 2. Mildly enlarged left atrium. Normal right atrium and right ventricle. 3. The atrial septum appeared to be normal without evidence of defect or shunt. 4. Normal aortic root. 5. A small pericardial effusion was noted, no evidence of cardiac tamponade. 6. Mildly calcified aortic valve with normal leaflet excursion. Mildly calcified mitral annulus with normal anterior mitral valve leaflet motion. Normal tricuspid valve and pulmonic valve. The proximal pulmonary artery branches were not well visualized. 7. The inferior vena cava was normal in size, central venous pressure is most likely normal. DOPPLER: It detects trace to mild aortic regurgitation, mild mitral regurgitation, and mild tricuspid regurgitation. The calculated pulmonary artery systolic pressure varies between 30-40 mmHg. Assessment of the left ventricular diastolic function appeared to be normal. IMPRESSION: 1. Normal global left ventricular systolic function. Assessment of the left ventricular diastolic function appeared to be normal. 2. Aortic valve sclerosis with trace to mild aortic regurgitation and probably mild aortic stenosis. 3. Mitral annulus calcification with mild mitral regurgitation. The left atrium is minimally enlarged at 4.1 cm. 4. Mild tricuspid regurgitation with probably mild pulmonary hypertension. 5. A small pericardial effusion was noted, no evidence of cardiac tamponade. [facility]
[2019-12-17] VITALS: BP 140/71
[2019-12-17 04:00] VITALS: BP 115/67
[2019-12-17 06:03] LABS: HEMATOCRIT 33.7 % (36.0-47.0); HEMOGLOBIN 10.5 g/dl (12.0-15.5); MEAN CORPUSCULAR HEMOGLOBIN 34.1 pg (27.0-33.0); MEAN CORPUSCULAR HGB CONC 31.2 g/dl (32.0-36.5); MEAN CORPUSCULAR VOLUME 109.4 fl (80.0-96.0); PLATELET COUNT, AUTOMATED 170 10^3/uL (150-450); RED BLOOD COUNT 3.08 10^6/uL (4.00-5.40); WHITE BLOOD COUNT 5.7 10^3/uL (4.0-10.0)
[2019-12-17 06:37] LABS: ALBUMIN 2.5 GM/DL (3.2-5.2); BILIRUBIN,TOTAL 0.4 MG/DL (0.2-1.0); CALCIUM LEVEL 7.7 MG/DL (8.8-10.2); CREATININE FOR GFR 1.09 MG/DL (0.55-1.30); GLOMERULAR FILTRATION RATE 51.5 (>39); MAGNESIUM LEVEL 2.7 MG/DL (1.8-2.4); POTASSIUM SERUM 5.3 MEQ/L (3.5-5.1); TOTAL PROTEIN 5.4 GM/DL (6.4-8.2)
[2019-12-17] MEDS: SLF 3 ML SYR IV SCH ×3 (06:45→20:24)
[2019-12-17 07:53] VITALS: BP 150/59
[2019-12-17] MEDS: ENOXAPARIN 40MG/0.4ML SYRINGE (J1650 PER 10MG) SC SCH ×2 (09:00→20:24)
[2019-12-17] MEDS ORDERED: FUROSEMIDE 20 MG TAB PO SCH (09:00)
[2019-12-17] MEDS: ROSUVASTATIN 10 MG TAB (CRESTOR) PO SCH (09:07)
[2019-12-17] MEDS: atenoloL 50 MG TAB PO SCH (09:07)
[2019-12-17 12:00] VITALS: BP 129/63
[2019-12-17 15:57] VITALS: BP 133/63
[2019-12-17] MEDS: SPIRONOLACTONE 25 MG TAB PO SCH (16:01)
--- NOTE | 2019-12-17 17:06 | IPNPDOC ---
Text Note Date of Service The patient was seen on 12/17/19. NOTE S: Pt examined at bedside. Leg cramps have resolved, no reported events overnight. Still feels short of breath when ambulating to bathroom, and still having ectopic beats on tele - asymptomatic. Otherwise doing well. E-lytes r esponded well to supplement. No cp, palpitations, dizziness, lightheaded, n/v, abd pain. PE: Vitals: see below General: NAD, A&Ox3, sitting in chair comfortably HEENT: NCAT, EOMI, anicteric sclera, MMM, neck supple without JVD CV: RRR, 2/6 murmur, no clicks or rub. 2+ edema b/l LE RESP: CTAB, no w/r/r, comfortably breathing on room air ABD: soft, NT, ND. Benign EXTREMITIES: 2+ radial pulses b/l, able to move all extremities NEURO: no focal deficits. Follows commands SKIN: no visible lesions A/P: This is a 79-year-old female sent in by her PCP due to dangerously low magnesium of 0.6 and calcium 6.8. Patient's only complaints were leg cramps, edema, and shortness of breath that her chronic for the past few years, recently worsened over the past few weeks. Per patient, her diuretics had been uptitrated over the past couple weeks in attempts to control her edema. 1. Lower extremity edema, dyspnea -Patient reports this is chronic for the past few years, recently worsened over the past couple weeks -Blood cultures and respiratory panel & COVID testing negative. No fevers or leukocytosis -Possibly cardiac. CXR notes prominent central pulmonary vein - Echo: Normal global left ventricular systolic & diastolic function. Aortic valve sclerosis with trace to mild aortic regurgitation and probably mild aortic stenosis. Mitral annulus calcification with mild mitral regurgitation. The left atrium is minimally enlarged at 4.1 cm. Mild tricuspid regurgitation with probably mild pulmonary hypertension. A small pericardial effusion was noted, no evidence of cardiac tamponade. - Continue monitoring telemetry and strict I's and O's and daily weight. Continue compression stockings -Will discuss with Cardio re: adjusting diuretics with cautious montoring of e- lytes 2. Hypocalcemia, hypomagnesemia -Magnesium 0.6 and calcium 6.8 on admission, improved s/p aggressive supplement -Patient hemodynamically stable and muscle cramps resolved -Likely multifactorial: increasing diuretics in outpatient setting and CKD; likely also VitD defic -PTH appropriately elevated. Monitor telemetry -hold supplementation today and reassess. Will resume diuretics as below 3. Ectopic beats, bigeminy -continues on telemetry, pt asymptomatic and stable -Likely 2/2 electrolyte abnormality. Cardiac markers negative -Cardio consulted, appreciate input: increased atenolol from 25mg to 50mg/day, and changed Zocor to Crestor -Per Dr. Harrison: resume home Spironolactone 25mg/day, lower furosemide of 20mg.day, and daily po Magnesium, monitor e-lytes. If tolerating well, safe to discharge -Continue monitoring on telemetry; recheck e-lytes in am. D/c home if tolerating above regimen 4. Leg cramps -resolved, likely 2/2 electrolytes abnormalities and lower extremity edema -Bilateral Doppler on admission negative for DVT -Continue e-lyte supplement & compression stockings 5. Likely CKD 3 -No prior labs available to compare to; stable with GFR 40-50 -Trend renal function, monitor Hypertension Controlled, continue home meds w/ changes above GERD Continue PPI Dyslipidemia Continue statin - changed as mentioned above DVT ppx: Lovenox SC DISPO: Pending clinical improvement. Likely dc home tomorrow. VS,Fishbone, I+O VS, Fishbone, I+O Laboratory Tests 12/17/19 05:49 Vital Signs Date Time Temp Pulse Resp B/P (MAP) Pulse Ox O2 Delivery O2 Flow Rate FiO2 12/17/19 15:57 96.9 60 18 133/63 (86) 91 Room Air 12/16/19 12:00 0.5 I&O- Last 24 Hours up to 6 AM 12/17/19 06:00 Intake Total 1920 ml Output Total 250 ml Balance 1670 ml GME ATTESTATION GME ATTESTATION My faculty preceptor for this patient encounter was physically present during the encounter and was fully available. All aspects of the patient interview, examination, medical decision making process, and medical care plan development were reviewed and approved by the faculty preceptor. The faculty preceptor is aware and concurs with the plan as stated in the body of this note and will attest to such by his/her cosignature. ATTENDING NOTE I, Ariella Duffy, have independently examined this patient and performed my own physical exam, as well as reviewed the documentation and edited where necessary. I have discussed in detail with the resident / student the findings and plan of treatment as documented by the resident / student and edited their note. I agree with their findings and treatment plan and have edited their documentation. Ms. Mukherjee is doing much better. Today we started her on low dose lasix oral magnesium repletion with plan to discharge her home tomorrow with close follow up with Dr. Harrison. SERJIO JUARES DO Dec 17, 2019 17:06 ARIELLA DUFFY MD Dec 17, 2019 20:53
[2019-12-17 20:00] VITALS: BP 129/60
[2019-12-17] MEDS: OLMESARTAN MEDOXOMIL 20 MG TAB (BENICAR) PO SCH (20:27)
[2019-12-17] MEDS: OMEPRAZOLE 20 MG CAP PO SCH (20:27)
[2019-12-18] VITALS: BP 141/63
[2019-12-18 04:00] VITALS: BP 153/66
[2019-12-18 05:14] LABS: HEMATOCRIT 36.2 % (36.0-47.0); HEMOGLOBIN 11.3 g/dl (12.0-15.5); MEAN CORPUSCULAR HEMOGLOBIN 34.9 pg (27.0-33.0); MEAN CORPUSCULAR HGB CONC 31.2 g/dl (32.0-36.5); MEAN CORPUSCULAR VOLUME 111.7 fl (80.0-96.0); PLATELET COUNT, AUTOMATED 169 10^3/uL (150-450); RED BLOOD COUNT 3.24 10^6/uL (4.00-5.40); WHITE BLOOD COUNT 5.7 10^3/uL (4.0-10.0)
[2019-12-18] MEDS: SLF 3 ML SYR IV SCH (05:30)
[2019-12-18 05:41] LABS: ALBUMIN 2.6 GM/DL (3.2-5.2); BILIRUBIN,TOTAL 0.7 MG/DL (0.2-1.0); CALCIUM LEVEL 8.3 MG/DL (8.8-10.2); CREATININE FOR GFR 1.12 MG/DL (0.55-1.30); MAGNESIUM LEVEL 1.5 MG/DL (1.8-2.4); POTASSIUM SERUM 4.8 MEQ/L (3.5-5.1); TOTAL PROTEIN 5.6 GM/DL (6.4-8.2)
[2019-12-18] MEDS ORDERED: FURO20TA2 PO (07:51)
[2019-12-18] MEDS ORDERED: ATEN50TA2 PO (07:51)
[2019-12-18] MEDS ORDERED: ROSU20TA5 PO (07:51)
[2019-12-18] MEDS ORDERED: MAG400TA PO (07:51)
[2019-12-18 07:53] VITALS: BP 149/73
[2019-12-18] MEDS: ROSUVASTATIN 10 MG TAB (CRESTOR) PO SCH (07:53)
[2019-12-18] MEDS: atenoloL 50 MG TAB PO SCH (07:53)
[2019-12-18] MEDS: MAG SULF 1GM/100ML (MAG RUN) 1 GM in IV 1 EA IV SCH ×2 (07:54→09:36)
[2019-12-18] MEDS: ENOXAPARIN 40MG/0.4ML SYRINGE (J1650 PER 10MG) SC SCH (07:56)
[2019-12-18] MEDS: SPIRONOLACTONE 25 MG TAB PO SCH (07:56)
[2019-12-18 08:00] VITALS: BP 149/72
[2019-12-18] MEDS ORDERED: MAGNESIUM OXIDE 400 MG TAB (MAG-OX) PO SCH (09:00)
[2019-12-18] MEDS ORDERED: FUROSEMIDE 20 MG TAB PO SCH (09:00)
--- NOTE | 2019-12-18 13:09 | DS.PDOC ---
Discharge Summary General Date of Admission Dec 15, 2019 at 15:01 Date of Discharge 12/18/2019 Attending Physician: JOHNNY DUFFY MD Specialist/Consultants Involve: CECILIA SMALLWOOD MD Discharge Summary PROCEDURES PERFORMED DURING STAY: None ADMITTING DIAGNOSES: 1.Hypomagnesemia DISCHARGE DIAGNOSES: 1. Hypomagnesemia 2. Hypocalcemia 3. Hypertension 4. Hyperlipidemia COMPLICATIONS/CHIEF COMPLAINT: Hypocalcemia. HISTORY OF PRESENT ILLNESS: 79 yo W with a remote history of cervical, uterine and ovarian CA >30y ago, HTN, HLD, osteoporosis and long standing history of LE edema that has progressive gotten worse over time and most recently her PCP had been trying to manage with uptitration of lasix and aldactone without improvement who presented to per PCP with profound generalized body aches of a few weeks duration as well SOB and on labs was found to have a Mag of 0.4 and thus send to the ED. HOSPITAL COURSE: In the ED, she arrived hemodynamically stable and afebrile and initial workup revealed a mag of 0.6, Ca 6.8, K 3.8, Cr 1.32, Na 140, phos 3.8, proBNP of 813 which is lower than previously recorded with an EKG that was NSR with frequent PACs (not AFib) while troponin was wnl. She had CXR that was unremarkable and LE dopplers that did not reveal a DVT. Due to her SOB, body aches she was ordered for respiratory panel and covid-19 studies. Her WBC was otherwise 6.2, hgb 11 and LFTs were wnl. She was admitted for profound hypomagnesemia that was likely precipitated by her combination loop diuretic and aldactone, without a history suggestive of GI losses (though she reports having previously been on MagOx that gave her diarrhea so she had not taken it in months and diarrhea had resolved) and has no history of excess alcohol intake. While inpatient, we repleted her Magnesium and Ca with resolution of arthralgias and myalgias and she ambulated unassisted without difficulty. TTE revealed a grossly normal TTE without systolic or diastolic dysfunction with a trace pericardial effusion. She did continue to have a significant PAC load on telemetry that was asymptomatic and cardiology was consulted and Dr. Smallwood eventually recommended restarting her on lasix 20 daily, aldactone 25, and resuming PO daily magnesium with close o utpatient cardiology follow up. DISCHARGE MEDICATIONS: Please see below. ALLERGIES: Please see below. PHYSICAL EXAMINATION ON DISCHARGE: VITAL SIGNS: Please see below. General: NAD, A&Ox3, sitting in chair comfortably, asking about getting home HEENT: NCAT, EOMI, anicteric sclera, MMM, neck supple without JVD CV: RRR, 2/6 systolic murmur at RUSB, no clicks or rub. chronic 2+ edema b/l LE to midshins RESP: CTAB, no w/r/r, comfortably breathing on room air ABD: soft, NT, ND. Benign EXTREMITIES: 2+ radial pulses b/l, able to move all extremities NEURO: no focal deficits. Follows commands SKIN: no visible lesions LABORATORY DATA: Please see below. IMAGING: Admission CXR: No significant change other than technique. There is no evidence of acute cardiopulmonary disease. Prominent central pulmonary venous engorgement suspected on the prior examination appears less prominent on this portable examination. LE doppler US: No evidence of deep venous thrombosis of the bilateral lower extremity femoral popliteal venous system. TTE: 1. Normal global left ventricular systolic function. Assessment of the leftventricular diastolic function appeared to be normal. 2. Aortic valve sclerosis with trace to mild aortic regurgitation and probablymild aortic stenosis. 3. Mitral annulus calcification with mild mitral regurgitation. The left atriumis minimally enlarged at 4.1 cm. 4. Mild tricuspid regurgitation with probably mild pulmonary hypertension. 5. A small pericardial effusion was noted, no evidence of cardiac tamponade. PROGNOSIS: Good ACTIVITY: As tolerated DIET: Regular DISCHARGE PLAN: Home with lasix 20, aldactone 25, magox 800 daily and close follow up with cardiology within 5 days DISPOSITION: Home DISCHARGE INSTRUCTIONS: 1. lasix 20, aldactone 25, magox 800 daily and close follow up with cardiology within 5 days. ITEMS TO FOLLOWUP ON ON OUTPATIENT: 1. Electrolyte derrangements 2. LE edema DISCHARGE CONDITION: Stable TIME SPENT ON DISCHARGE: 32 minutes. Vital Signs/I&Os Vital Signs Date Time Temp Pulse Resp B/P (MAP) Pulse Ox O2 Delivery O2 Flow Rate FiO2 12/18/19 04:00 96.8 73 20 153/66 (95) 92 Room Air 12/16/19 12:00 0.5 I&O- Last 24 Hours up to 6 AM 12/18/19 05:59 Intake Total 1240 ml Output Total 675 ml Balance 565 ml Laboratory Data Labs 24H Laboratory Tests 2 12/18/19 04:44: Nucleated Red Blood Cells % (auto) 0.0, Anion Gap 4L, Glomerular Filtration Rate 50.0, Calcium Level 8.3L, Magnesium Level 1.5L, Total Bilirubin 0.7#, Aspartate Amino Transf (AST/SGOT) 12, Alanine Aminotransferase (ALT/SGPT) 15, Alkaline Phosphatase 67, Total Protein 5.6L, Albumin 2.6L, Albumin/Globulin Ratio 0.87L CBC/BMP Laboratory Tests 12/18/19 04:44 Microbiology Microbiology 12/15/19 Respiratory Virus Panel (PCR) ([facility]) - Final, Complete 12/15/19 Blood Culture - Preliminary, Resulted No Growth after 48 hours. All Specime... 12/15/19 Blood Culture - Preliminary, Resulted No Growth after 48 hours. All Specime... Discharge Medications Scheduled Atenolol (Atenolol) 50 Mg Tablet, 50 MG PO DAILY Furosemide (Furosemide) 20 Mg Tablet, 20 MG PO DAILY daily Magnesium Oxide (Magnesium Oxide) 400 Mg Tablet, 800 MG PO DAILY Olmesartan Medoxomil (Olmesartan Medoxomil) 20 Mg Tablet, 20 MG PO DAILY, (Reported) Omeprazole (Omeprazole) 20 Mg Capsule.dr, 20 MG PO QHS, (Reported) Raloxifene HCl (Raloxifene HCl) 60 Mg Tablet, 60 MG PO DAILY, (Reported) Rosuvastatin Calcium (Rosuvastatin Calcium) 20 Mg Tablet, 1 TAB PO DAILY Spironolactone (Spironolactone) 25 Mg Tablet, 25 MG PO DAILY, (Reported) Scheduled PRN Acetaminophen (Acetaminophen) 325 Mg Tablet, 325 MG PO DAILY PRN for PAIN, (Reported) Allergies Coded Allergies: atorvastatin (Verified Allergy, Intermediate, 12/15/19) Uncoded Allergies: something with a "p" for pain (Allergy, Intermediate, 12/15/19) " some" antibiotic (Allergy, Unknown, 12/15/19) JOHNNY DUFFY MD Dec 18, 2019 07:39
--- NOTE | 2019-12-19 05:24 | CR ---
DATE OF CONSULTATION: 12/16/2019 ADDENDUM TO REPORT #[id number]: Mrs. Aline Barth was seen earlier this evening in her room in progressive care unit (PCU), and she was sitting in a chair in no acute distress at rest. Case was discussed earlier today with Dr. Raymundo, and please refer to the note above. I have reviewed her echocardiogram, and it revealed a normal global ventricular systolic, mild valvular heart disease. The etiology of her pedal edema is not quite clear, and we have discussed about low-salt diet and the importance of being compliant with her medications. Unclear whether she has a recent viral illness or not causing the pericardial effusion. I recommend to discharge her on the same medications she was admitted, but I have discontinued the simvastatin and will start her on generic Crestor. Her atenolol was increased up to 50 mg by mouth daily. If she is discharged over the weekend, I will call her this coming week for a Holter monitor to be done later this month. This was discussed with her, and please do not hesitate to text me or call me if any questions over the weekend prior to her discharge. As outpatient, she might benefit from a stress test at one point, looking for ischemia in view of her premature ventricular contractions (PVCs). She most likely will be discharged on magnesium supplement.
== END 2019-12-18 13:05 | disposition home health service (06) | DRG 641 ==
LOC: M ED 12:34 → M PCU 15:01 → ENRESERV 15:32
PROVIDERS: ADMIT Internal Medicine; ATTEND Internal Medicine
DX: E83.42 Hypomagnesemia (principal); E83.51 Hypocalcemia; I12.9 Hypertensive chronic kidney disease with stage 1 through stage 4 chronic kidney disease, or unspecified chronic kidney disease; E78.5 Hyperlipidemia, unspecified; Z85.41 Personal history of malignant neoplasm of cervix uteri; Z85.42 Personal history of malignant neoplasm of other parts of uterus; Z85.43 Personal history of malignant neoplasm of ovary; M81.0 Age-related osteoporosis without current pathological fracture; I27.20 Pulmonary hypertension, unspecified; I08.3 Combined rheumatic disorders of mitral, aortic and tricuspid valves; Z79.899 Other long term (current) drug therapy; Z88.8 Allergy status to other drugs, medicaments and biological substances; Z87.891 Personal history of nicotine dependence; N18.3 Chronic kidney disease, stage 3 (moderate); K21.9 Gastro-esophageal reflux disease without esophagitis; Z96.642 Presence of left artificial hip joint; Z95.2 Presence of prosthetic heart valve; I49.3 Ventricular premature depolarization

== ENCOUNTER → 2019-12-15 | Outpatient (REF) | payer MEDICARE, BC ==
[~2019-12-15] MED LIST changes: +ACET1TAB55 PO; -ATEN25TA; +ATEN25TA PO; +FURO20TA2 PO; +LASI20TA PO; +OLME20TA2 PO; +OMEP-218 PO; +RALO1TAB PO; +SIMV40TA20 PO; +SPIR-10 PO
== END ==
LOC: M LAB REF 12:25
PROVIDERS: ATTEND Internal Medicine
DX: M10.9 Gout, unspecified (principal)

== ENCOUNTER 2020-01-13 10:31 | Outpatient (CLI) | payer MEDICARE, BC ==
[~2020-01-13] VITALS: Ht 152.4 cm; Wt 88.0 kg
[~2020-01-13 10:31] MED LIST changes: +ACET1TAB55 PO; +ATEN50TA2 PO; +FURO20TA2 PO; +MAG400TA PO; +OLME20TA2 PO; -OLMESARTAN MEDOXOMIL 20 MG TAB (BENICAR) PO SCH; +OMEP-218 PO; +RALO1TAB PO; +ROSU20TA5 PO; +SIMV40TA20 PO; +SPIR-10 PO
[2020-01-13 10:35] VITALS: BP 98/52
[2020-01-13] MEDS: MAG SULF 1GM/100ML (MAG RUN) X 2 DOSES (2GM TOTAL) IV SCH ×4 (11:12→12:07)
[2020-01-13 12:00] VITALS: BP 118/54
[2020-01-13 13:00] VITALS: BP 109/62
[2020-01-13 13:35] VITALS: BP 99/60
== END 2020-01-13 13:35 | disposition home or self-care (01) ==
LOC: M INFU 10:31
PROVIDERS: ATTEND Internal Medicine
DX: E83.42 Hypomagnesemia (principal); Z88.8 Allergy status to other drugs, medicaments and biological substances
CPT/HCPCS: 96365; 96366; J3475

== ENCOUNTER 2020-02-10 11:42 | Outpatient (CLI) | payer MEDICARE, BC ==
[~2020-02-10] VITALS: Ht 152.4 cm; Wt 86.4 kg
[2020-02-10 12:20] VITALS: BP 143/62
[2020-02-10] MEDS: MAG SULF 1GM/100ML (MAG RUN) X 2 DOSES (2GM TOTAL) IV SCH ×4 (13:21→14:24)
[2020-02-10 14:23] VITALS: BP 131/63
[2020-02-10 16:00] VITALS: BP 121/56
== END 2020-02-10 16:00 | disposition home or self-care (01) ==
LOC: M INFU 11:42
PROVIDERS: ATTEND Internal Medicine
DX: E83.42 Hypomagnesemia (principal); Z88.8 Allergy status to other drugs, medicaments and biological substances
CPT/HCPCS: 96365; 96366; J3475

== ENCOUNTER → 2020-03-13 | Outpatient (CLI) | payer MEDICARE, BC ==
[~2020-03-13] VITALS: Ht 152.4 cm; Wt 86.4 kg
[~2020-03-13] MED LIST changes: +MAG SULF 1GM/100ML (MAG RUN) X 2 DOSES (2GM TOTAL) IV SCH
[2020-03-13 10:30] VITALS: BP 151/65
[2020-03-13] MEDS: MAG SULF 1GM/100ML (MAG RUN) X 2 DOSES (2GM TOTAL) IV SCH ×2 (11:41)
[2020-03-13 12:47] VITALS: BP 128/36
[2020-03-13 14:05] VITALS: BP 126/72
== END ==
LOC: M INFU 10:12
PROVIDERS: ATTEND Internal Medicine
DX: E83.42 Hypomagnesemia (principal)
CPT/HCPCS: 96365; 96366; J3475

== ENCOUNTER 2020-03-28 12:02 | Outpatient (CLI) | payer MEDICARE, BC ==
[~2020-03-28 12:02] MED LIST changes: -MAG SULF 1GM/100ML (MAG RUN) X 2 DOSES (2GM TOTAL) IV SCH
[2020-03-28] MEDS ORDERED: MAGNESIUM SULFATE 1GM/100ML D5W BAG (10MG/ML) ONE ×2 (12:23)
[2020-03-28] MEDS ORDERED: MAGNESIUM SULFATE 1GM/100ML D5W BAG (10MG/ML) As Ordered ONE (12:23)
== END 2020-03-28 14:40 | disposition home or self-care (01) ==
LOC: M INFU 12:02
PROVIDERS: ATTEND Internal Medicine
DX: E83.42 Hypomagnesemia (principal)
CPT/HCPCS: 96365; 96366; J3475

== ENCOUNTER → 2020-05-17 | Outpatient (REF) | payer MEDICARE, BC | LOC: M LAB REF 12:11 | PROVIDERS: ATTEND Internal Medicine | DX: M10.072 Idiopathic gout, left ankle and foot (principal) ==

== ENCOUNTER 2020-06-11 12:48 | Outpatient (CLI) | payer MEDICARE, BC ==
[~2020-06-11] VITALS: Ht 165.1 cm; Wt 86.6 kg
[2020-06-11 13:00] VITALS: BP 126/56
[2020-06-11] MEDS: MAG SULF 1GM/100ML (MAG RUN) X 2 DOSES (2GM TOTAL) IV SCH ×2 (14:46)
[2020-06-11 16:00] VITALS: BP 118/58
== END 2020-06-11 16:00 | disposition home or self-care (01) ==
LOC: M INFU 12:48
PROVIDERS: ATTEND Physician Assistant Medical
DX: E83.42 Hypomagnesemia (principal)
CPT/HCPCS: 96365; 96366; J3475

== ENCOUNTER → 2020-07-03 | Outpatient (CLI) | payer MEDICARE, BC ==
--- NOTE | 2020-07-03 13:57 | REP ---
INDICATION: KEITH LEG PAIN SWELLING ? DVT FILE ROOM. COMPARISON: Comparison study December 15, 2019.. TECHNIQUE: Bilateral lower extremity duplex venous scanning is performed. FINDINGS: The deep veins are anechoic and fully compressible from the groin to the popliteal fossa in the left and right lower extremity. Color flow imaging is homogeneous. Spectral Doppler interrogation demonstrates intact respiratory variation in flow and normal manual augmentation of flow. There is no evidence of deep vein thrombosis. IMPRESSION: Negative bilateral lower extremity duplex venous ultrasound. No evidence of deep vein thrombosis. <Electronically signed by Wu Mina > 07/03/20 1430
== END ==
LOC: M RAD 12:37
PROVIDERS: ATTEND Internal Medicine
DX: M79.89 Other specified soft tissue disorders (principal); M79.661 Pain in right lower leg; M79.662 Pain in left lower leg

== ENCOUNTER → 2020-10-01 | Outpatient (REF) | payer MEDICARE, BC | LOC: M LAB REF 16:19 | PROVIDERS: ATTEND Internal Medicine | DX: R70.0 Elevated erythrocyte sedimentation rate (principal) ==

== ENCOUNTER 2020-10-03 09:56 | Outpatient (CLI) | payer MEDICARE, BC ==
[~2020-10-03] VITALS: Ht 152.4 cm; Wt 87.1 kg
[2020-10-03] MEDS: MAG SULF 1GM/100ML (MAG RUN) X 2 DOSES (2GM TOTAL) IV SCH ×4 (10:17→11:10)
[2020-10-03 10:40] VITALS: BP 115/56
[2020-10-03 12:35] VITALS: BP 124/60
== END 2020-10-03 12:35 | disposition home or self-care (01) ==
LOC: M INFU 09:56
PROVIDERS: ATTEND Internal Medicine
DX: E83.42 Hypomagnesemia (principal); Z88.1 Allergy status to other antibiotic agents; Z88.8 Allergy status to other drugs, medicaments and biological substances
CPT/HCPCS: 96365; 96366; J3475

== ENCOUNTER 2020-10-11 10:05 | Outpatient (CLI) | payer MEDICARE, BC ==
[~2020-10-11] VITALS: Ht 152.4 cm; Wt 89.5 kg
[~2020-10-11 10:05] MED LIST changes: -MAG400TA PO; +MAGN400T35 PO
[2020-10-11] MEDS: MAG SULF 1GM/100ML (MAG RUN) X 2 DOSES (2GM TOTAL) IV SCH ×4 (10:15→11:11)
[2020-10-11 10:20] VITALS: BP 119/76
[2020-10-11 12:32] VITALS: BP 140/65
== END 2020-10-11 12:50 | disposition home or self-care (01) ==
LOC: M INFU 10:05
PROVIDERS: ATTEND Internal Medicine
DX: E83.42 Hypomagnesemia (principal); Z88.1 Allergy status to other antibiotic agents
CPT/HCPCS: 96365; 96366; J3475

== ENCOUNTER 2020-11-09 13:45 | Outpatient (CLI) | payer MEDICARE, BC ==
[~2020-11-09] VITALS: Ht 152.4 cm; Wt 89.5 kg
[2020-11-09 13:45] VITALS: BP 119/53
[2020-11-09] MEDS: MAG SULF 1GM/100ML (MAG RUN) X 2 DOSES (2GM TOTAL) IV SCH ×4 (14:17→15:13)
[2020-11-09 16:30] VITALS: BP 164/67
== END 2020-11-09 16:30 | disposition home or self-care (01) ==
LOC: M INFU 13:45
PROVIDERS: ATTEND Internal Medicine
DX: E83.42 Hypomagnesemia (principal); Z88.1 Allergy status to other antibiotic agents; Z88.8 Allergy status to other drugs, medicaments and biological substances
CPT/HCPCS: 96365; 96366; J3475

== ENCOUNTER 2020-12-11 12:28 | Outpatient (CLI) | payer MEDICARE, BC ==
[~2020-12-11] VITALS: Ht 153.7 cm; Wt 89.1 kg
[2020-12-11] MEDS: MAG SULF 1GM/100ML (MAG RUN) X 2 DOSES (2GM TOTAL) IV SCH ×4 (12:52→13:56)
[2020-12-11 12:59] VITALS: BP 130/60
[2020-12-11 15:20] VITALS: BP 132/59
== END 2020-12-11 15:20 | disposition home or self-care (01) ==
LOC: M INFU 12:28
PROVIDERS: ATTEND Internal Medicine
DX: E83.42 Hypomagnesemia (principal); Z88.1 Allergy status to other antibiotic agents; Z88.8 Allergy status to other drugs, medicaments and biological substances
CPT/HCPCS: 96365; 96366; J3475

== ENCOUNTER → 2020-12-19 | Outpatient (CLI) | payer MEDICARE, BC ==
--- NOTE | 2020-12-19 16:38 | REP ---
INDICATION: PVD. COMPARISON: None. TECHNIQUE: Bilateral lower extremity arterial Doppler ultrasound. FINDINGS: Ankle brachial indices are measured at 0.98 on the right and 0.38 on the left. Significant atherosclerotic plaquing is seen bilaterally. The right lower extremity arterial tree demonstrates a biphasic arterial waveforms. Abnormal monophasic waveforms are noted throughout the left lower extremity. Relatively slow flow in the common femoral on the left raise the question of inflow stenosis. There is evidence of stenosis in the right common femoral and right proximal superficial femoral as well as the origin of the profundal on the right. Very low velocity waveforms are noted distal to the left knee. Right lower extremity arterial Doppler velocity chart: Right OUTPATIENT CASE MANAGER PSV 132/212 cm/S Profundal 323 Proximal SFA 251 Mid SFA 102 Distal SFA 94 Popliteal 107 Proximal SLAVA 102 Tibial-peroneal trunk 82 Proximal NURSE WOUND CARE 86 Distal NURSE WOUND CARE 63 Distal SLAVA 46 Left lower extremity arterial Doppler velocity chart: Left OUTPATIENT CASE MANAGER PSV 71 cm/S Profundal 55 Proximal SFA 44 Mid SFA 52 Distal SFA 51 Popliteal 30 Proximal SLAVA 45 Tibial-peroneal trunk 19 Proximal NURSE WOUND CARE 15 Distal NURSE WOUND CARE 10 Distal SLAVA 10 IMPRESSION: Significant atherosclerotic plaquing bilaterally. Question inflow stenosis on the left. Low velocity flows in the left lower extremity particularly distally. Right OUTPATIENT CASE MANAGER, profundal, and proximal SFA stenoses. <Electronically signed by Wu Mina > 12/19/20 1441
== END ==
LOC: M RAD 14:45
PROVIDERS: ATTEND Internal Medicine
DX: I70.213 Atherosclerosis of native arteries of extremities with intermittent claudication, bilateral legs (principal)

== ENCOUNTER 2020-12-24 14:13 | Outpatient (CLI) | payer MEDICARE, BC ==
[~2020-12-24] VITALS: Ht 153.7 cm; Wt 89.8 kg
[2020-12-24 14:15] VITALS: BP 100/55
[2020-12-24] MEDS: MAG SULF 1GM/100ML (MAG RUN) X 2 DOSES (2GM TOTAL) IV SCH ×4 (14:48→15:39)
[2020-12-24 17:00] VITALS: BP 160/65
== END 2020-12-24 17:00 | disposition home or self-care (01) ==
LOC: M INFU 14:13
PROVIDERS: ATTEND Internal Medicine
DX: E83.42 Hypomagnesemia (principal); Z88.1 Allergy status to other antibiotic agents
CPT/HCPCS: 96365; J3475

== ENCOUNTER 2021-01-10 13:04 | Outpatient (CLI) | payer MEDICARE, BC ==
[~2021-01-10] VITALS: Ht 154.9 cm; Wt 71.6 kg
[2021-01-10] MEDS: MAGNESIUM SULFATE 1GM/100ML D5W BAG (10MG/ML) IV SCH ×2 (13:53→13:54)
[2021-01-10 14:03] VITALS: BP 122/57
[2021-01-10 16:05] VITALS: BP 131/63
== END 2021-01-10 16:05 | disposition home or self-care (01) ==
LOC: M INFU 13:04
PROVIDERS: ATTEND Internal Medicine
DX: E83.42 Hypomagnesemia (principal); Z88.1 Allergy status to other antibiotic agents
CPT/HCPCS: 96374; J3475

== ENCOUNTER → 2021-01-14 | Outpatient (REF) | payer MEDICARE, BC ==
[2021-01-14 18:35] LABS: INR 1.04; PROTHROMBIN TIME 13.8 SECONDS (12.5-14.3)
[2021-01-14 18:36] LABS: PARTIAL THROMBOPLASTIN TIME 27.8 SECONDS (24.2-38.5)
[2021-01-14 20:19] LABS: ATYPICAL LYMPH 5 % (0-5); BASOPHILS 2 % (0-1); EOSINOPHILS 1 % (0-3); LYMPHOCYTES 13 % (16-44); MONOCYTES 7 % (0-5); NEUTROPHILS 69 % (28-66)
[2021-01-14 20:21] LABS: ANISOCYTOSIS 1+; PLATELET ESTIMATE NORMAL (NORMAL)
== END ==
LOC: M LAB REF 17:22
PROVIDERS: ATTEND Internal Medicine
DX: Z01.818 Encounter for other preprocedural examination (principal); I70.212 Atherosclerosis of native arteries of extremities with intermittent claudication, left leg; D69.8 Other specified hemorrhagic conditions

== ENCOUNTER 2021-01-16 13:12 | Outpatient (CLI) | payer MEDICARE, BC ==
[~2021-01-16] VITALS: Ht 177.8 cm; Wt 71.6 kg
[~2021-01-16 13:12] MED LIST changes: +MAGNESIUM SULFATE 1GM/100ML D5W BAG (10MG/ML) IV SCH
[2021-01-16 13:15] VITALS: BP 124/68
[2021-01-16] MEDS ORDERED: MAG SULF 1GM/100ML (MAG RUN) X 2 DOSES (2GM TOTAL) IV SCH ×2 (13:45)
[2021-01-16 14:49] VITALS: BP 146/65
[2021-01-16 16:10] VITALS: BP 138/74
== END 2021-01-16 16:10 | disposition home or self-care (01) ==
LOC: M INFU 13:12
PROVIDERS: ATTEND Internal Medicine
DX: E83.42 Hypomagnesemia (principal); Z88.1 Allergy status to other antibiotic agents
CPT/HCPCS: 96365; J3475

== ENCOUNTER 2021-02-06 07:16 | Outpatient (CLI) | payer MEDICARE, BC ==
[~2021-02-06] VITALS: Ht 153.7 cm; Wt 89.8 kg
[~2021-02-06 07:16] MED LIST changes: -MAGNESIUM SULFATE 1GM/100ML D5W BAG (10MG/ML) IV SCH
[2021-02-06 07:20] VITALS: BP 156/99
[2021-02-06] MEDS: MAG SULF 1GM/100ML (MAG RUN) X 2 DOSES (2GM TOTAL) IV SCH ×4 (07:45→08:54)
[2021-02-06 09:00] VITALS: BP 146/72
== END 2021-02-06 10:00 | disposition home or self-care (01) ==
LOC: M INFU 07:16
PROVIDERS: ATTEND Internal Medicine
DX: E83.42 Hypomagnesemia (principal)
CPT/HCPCS: 96365; 96366; J3475

== ENCOUNTER 2021-05-03 14:06 | Outpatient (CLI) | payer MEDICARE, BC ==
[~2021-05-03] VITALS: Ht 154.9 cm; Wt 81.8 kg
[2021-05-03 14:25] VITALS: BP 168/75
[2021-05-03] MEDS: MAG SULF 1GM/100ML (MAG RUN) X 2 DOSES (2GM TOTAL) IV SCH ×4 (14:37→15:32)
[2021-05-03 15:35] VITALS: BP 132/76
[2021-05-03 16:40] VITALS: BP 160/71
== END 2021-05-03 16:55 | disposition home or self-care (01) ==
LOC: M INFU 14:06
PROVIDERS: ATTEND Internal Medicine
DX: E83.42 Hypomagnesemia (principal); Z88.1 Allergy status to other antibiotic agents; Z88.8 Allergy status to other drugs, medicaments and biological substances
CPT/HCPCS: 96365; 96366; J3475

== ENCOUNTER 2021-05-22 11:45 | Outpatient (CLI) | payer MEDICARE, BC ==
[~2021-05-22] VITALS: Ht 153.7 cm; Wt 80.9 kg
[2021-05-22] MEDS: MAG SULF 1GM/100ML (MAG RUN) X 2 DOSES (2GM TOTAL) IV SCH ×4 (11:59→13:04)
[2021-05-22 13:05] VITALS: BP 145/63
[2021-05-22 14:09] VITALS: BP 167/72
== END 2021-05-22 14:20 | disposition home or self-care (01) ==
LOC: M INFU 11:45
PROVIDERS: ATTEND Internal Medicine
DX: E83.42 Hypomagnesemia (principal); Z88.1 Allergy status to other antibiotic agents
CPT/HCPCS: 96365; 96366; J3475

== ENCOUNTER 2021-05-29 12:10 | Outpatient (CLI) | payer MEDICARE, BC ==
[~2021-05-29] VITALS: Ht 152.4 cm; Wt 80.9 kg
[2021-05-29 12:15] VITALS: BP 166/72
[2021-05-29] MEDS: MAG SULF 1GM/100ML (MAG RUN) X 2 DOSES (2GM TOTAL) IV SCH ×4 (12:39→13:30)
[2021-05-29 14:55] VITALS: BP 163/55
== END 2021-05-29 14:55 | disposition home or self-care (01) ==
LOC: M INFU 12:10
PROVIDERS: ATTEND Internal Medicine
DX: E83.42 Hypomagnesemia (principal); Z88.1 Allergy status to other antibiotic agents
CPT/HCPCS: 96365; 96366; J3475

== ENCOUNTER → 2021-06-03 | Outpatient (REF) | payer MEDICARE, BC ==
[2021-06-04 13:40] LABS: ATYPICAL LYMPH 1 % (0-5); EOSINOPHILS 7 % (0-3); LYMPHOCYTES 22 % (16-44); MONOCYTES 2 % (0-5); NEUTROPHILS 68 % (28-66)
[2021-06-04 13:41] LABS: PLATELET ESTIMATE NORMAL (NORMAL)
== END ==
LOC: M LAB REF 16:57
PROVIDERS: ATTEND Internal Medicine
DX: K22.10 Ulcer of esophagus without bleeding (principal); D72.9 Disorder of white blood cells, unspecified

== ENCOUNTER → 2021-06-10 | Outpatient (REF) | payer MEDICARE, BC ==
[2021-06-10 17:03] LABS: C REACTIVE PROTEIN QUANTITATIV 4.69 MG/DL (0.00-0.30)
[2021-06-10 18:18] LABS: BASOPHILS 1 % (0-1); EOSINOPHILS 8 % (0-3); LYMPHOCYTES 19 % (16-44); MONOCYTES 4 % (0-5); NEUTROPHILS 62 % (28-66)
[2021-06-10 18:19] LABS: PLATELET CLUMPS SMALL AMT; PLATELET ESTIMATE NORMAL (NORMAL)
[2021-06-10 18:20] LABS: ANISOCYTOSIS 1+
== END ==
LOC: M LAB REF 16:19
PROVIDERS: ATTEND Internal Medicine
DX: L29.9 Pruritus, unspecified (principal); D72.9 Disorder of white blood cells, unspecified

== ENCOUNTER → 2021-06-11 | Outpatient (REF) | payer MEDICARE, BC ==
[~2021-06-11] MED LIST changes: +OMEP-173 PO; -OMEP-218 PO
== END ==
LOC: M LAB REF 11:28
PROVIDERS: ATTEND Surgery
DX: T81.30XA Disruption of wound, unspecified, initial encounter (principal); Y83.8 Other surgical procedures as the cause of abnormal reaction of the patient, or of later complication, without mention of misadventure at the time of the procedure; L98.8 Other specified disorders of the skin and subcutaneous tissue; M79.89 Other specified soft tissue disorders

== ENCOUNTER 2021-06-13 11:55 | Outpatient (CLI) | payer MEDICARE, BC ==
[~2021-06-13 11:55] MED LIST changes: -OMEP-173 PO; +OMEP-218 PO
[2021-06-13 12:10] VITALS: BP 149/67
[2021-06-13] MEDS: MAG SULF 1GM/100ML (MAG RUN) X 2 DOSES (2GM TOTAL) IV SCH ×4 (12:22→13:18)
[2021-06-13 13:15] VITALS: BP 164/70
[2021-06-13 14:20] VITALS: BP 130/78
== END 2021-06-13 14:40 | disposition home or self-care (01) ==
LOC: M INFU 11:55
PROVIDERS: ATTEND Internal Medicine
DX: E83.42 Hypomagnesemia (principal); Z88.8 Allergy status to other drugs, medicaments and biological substances
CPT/HCPCS: 96365; 96366; J3475

== ENCOUNTER 2021-06-20 12:10 | Outpatient (CLI) | payer MEDICARE, BC ==
[~2021-06-20] VITALS: Ht 152.4 cm; Wt 80.9 kg
[2021-06-20 12:27] VITALS: BP 160/95
[2021-06-20] MEDS: MAG SULF 1GM/100ML (MAG RUN) SINGLE DOSE IV SCH ×4 (12:27→13:21)
[2021-06-20 13:00] VITALS: BP 148/72
[2021-06-20 14:40] VITALS: BP 140/78
== END 2021-06-20 14:40 | disposition home or self-care (01) ==
LOC: M INFU 12:10
PROVIDERS: ATTEND Internal Medicine
DX: E83.42 Hypomagnesemia (principal); Z88.8 Allergy status to other drugs, medicaments and biological substances
CPT/HCPCS: 96365; 96366; J3475

== ENCOUNTER → 2021-06-25 | Outpatient (REF) | payer MEDICARE, BC | LOC: M LAB REF 14:40 | PROVIDERS: ATTEND Internal Medicine | DX: D72.9 Disorder of white blood cells, unspecified (principal) ==

== ENCOUNTER 2021-07-19 09:01 | Outpatient (CLI) | payer MEDICARE, BC ==
[~2021-07-19] VITALS: Ht 154.9 cm; Wt 81.8 kg
[2021-07-19 09:05] VITALS: BP 131/59
[2021-07-19] MEDS: MAG SULF 1GM/100ML (MAG RUN) X 2 DOSES (2GM TOTAL) IV SCH ×4 (09:20→10:45)
[2021-07-19 11:45] VITALS: BP 158/78
== END 2021-07-19 11:45 | disposition home or self-care (01) ==
LOC: M INFU 09:01
PROVIDERS: ATTEND Internal Medicine
DX: E83.42 Hypomagnesemia (principal); Z88.8 Allergy status to other drugs, medicaments and biological substances
CPT/HCPCS: 96365; 96366; J3475

== ENCOUNTER 2021-07-29 13:30 | Outpatient (CLI) | payer MEDICARE, BC ==
[~2021-07-29] VITALS: Ht 154.9 cm; Wt 81.8 kg
[~2021-07-29 13:30] MED LIST changes: +OMEP-173 PO; -OMEP-218 PO
[2021-07-29] MEDS: MAG SULF 1GM/100ML (MAG RUN) X 2 DOSES (2GM TOTAL) IV SCH ×4 (13:50→15:00)
[2021-07-29 14:23] VITALS: BP 163/73
[2021-07-29 15:55] VITALS: BP 160/72
== END 2021-07-29 16:10 | disposition home or self-care (01) ==
LOC: M INFU 13:30
PROVIDERS: ATTEND Internal Medicine
DX: E83.42 Hypomagnesemia (principal); Z88.8 Allergy status to other drugs, medicaments and biological substances
CPT/HCPCS: 96365; 96366; J3475

== ENCOUNTER → 2021-08-16 | Outpatient (CLI) | payer MEDICARE, BC ==
[~2021-08-16] VITALS: Ht 154.9 cm; Wt 81.8 kg
[2021-08-16 11:00] VITALS: BP 162/70
[2021-08-16] MEDS: MAG SULF 1GM/100ML (MAG RUN) X 2 DOSES (2GM TOTAL) IV SCH ×4 (11:31→12:33)
[2021-08-16 12:30] VITALS: BP 166/73
[2021-08-16 13:40] VITALS: BP 180/78
== END ==
LOC: M INFU 10:50
PROVIDERS: ATTEND Internal Medicine
DX: E83.42 Hypomagnesemia (principal); Z88.8 Allergy status to other drugs, medicaments and biological substances
CPT/HCPCS: 96365; 96366; J3475

== ENCOUNTER 2021-08-26 12:03 | Outpatient (CLI) | payer MEDICARE, BC ==
[~2021-08-26] VITALS: Ht 154.9 cm; Wt 81.8 kg
[2021-08-26 12:15] VITALS: BP 172/73
[2021-08-26] MEDS: MAG SULF 1GM/100ML (MAG RUN) X 2 DOSES (2GM TOTAL) IV SCH ×4 (12:22→13:14)
[2021-08-26 14:30] VITALS: BP 162/75
== END 2021-08-26 14:30 | disposition home or self-care (01) ==
LOC: M INFU 12:03
PROVIDERS: ATTEND Internal Medicine
DX: E83.42 Hypomagnesemia (principal); Z88.8 Allergy status to other drugs, medicaments and biological substances
CPT/HCPCS: 96365; 96366; J3475

== ENCOUNTER 2021-09-19 09:32 | Outpatient (CLI) | payer MEDICARE, BC ==
[~2021-09-19] VITALS: Ht 154.9 cm; Wt 81.8 kg
[2021-09-19 09:44] VITALS: BP 147/71
[2021-09-19] MEDS: MAG SULF 1GM/100ML (MAG RUN) X 2 DOSES (2GM TOTAL) IV SCH ×4 (09:49→10:41)
[2021-09-19 11:50] VITALS: BP 170/68
== END 2021-09-19 12:00 | disposition home or self-care (01) ==
LOC: M INFU 09:32
PROVIDERS: ATTEND Internal Medicine
DX: E83.42 Hypomagnesemia (principal); Z88.8 Allergy status to other drugs, medicaments and biological substances
CPT/HCPCS: 96365; 96366; J3475

== ENCOUNTER 2021-10-03 13:38 | Outpatient (CLI) | payer MEDICARE, BC ==
[~2021-10-03] VITALS: Ht 154.9 cm; Wt 81.8 kg
[2021-10-03] MEDS: MAG SULF 1GM/100ML (MAG RUN) X 2 DOSES (2GM TOTAL) IV SCH ×4 (13:54→15:09)
[2021-10-03 14:29] VITALS: BP 126/61
[2021-10-03 16:30] VITALS: BP 128/68
== END 2021-10-03 16:30 | disposition home or self-care (01) ==
LOC: M INFU 13:38
DX: E83.42 Hypomagnesemia (principal); Z88.8 Allergy status to other drugs, medicaments and biological substances
CPT/HCPCS: 96365; 96366; J3475

== ENCOUNTER 2021-10-10 12:09 | Outpatient (CLI) | payer MEDICARE, BC ==
[~2021-10-10] VITALS: Ht 154.9 cm; Wt 81.8 kg
[~2021-10-10 12:09] MED LIST changes: +MAG SULF 1GM/100ML (MAG RUN) X 2 DOSES (2GM TOTAL) IV SCH
[2021-10-10] MEDS: MAG SULF 1GM/100ML (MAG RUN) X 2 DOSES (2GM TOTAL) IV SCH ×4 (12:32→13:32)
[2021-10-10 13:25] VITALS: BP 121/62
[2021-10-10 14:35] VITALS: BP 150/84
== END 2021-10-10 14:45 | disposition home or self-care (01) ==
LOC: M INFU 12:09
DX: E83.42 Hypomagnesemia (principal); Z88.8 Allergy status to other drugs, medicaments and biological substances
CPT/HCPCS: 96365; 96366; J3475

== ENCOUNTER → 2021-10-21 | Outpatient (REF) | payer MEDICARE, BC ==
[~2021-10-21] MED LIST changes: -MAG SULF 1GM/100ML (MAG RUN) X 2 DOSES (2GM TOTAL) IV SCH
[2021-10-21 16:50] LABS: APPEARANCE, URINE TURBID (CLEAR); BACTERIA, URINE AUTO 2+ (NEGATIVE); BILIRUBIN, URINE AUTO NEGATIVE (NEGATIVE); BLOOD, URINE BLOOD NEGATIVE (NEGATIVE); GLUCOSE, URINE (UA) AUTO NEGATIVE (NEGATIVE); KETONE, URINE AUTO NEGATIVE (NEGATIVE); LEUKOCYTE ESTERASE, URINE AUTO 2+ (NEGATIVE); NITRITE, URINE AUTO NEGATIVE (NEGATIVE); PROTEIN, URINE AUTO 2+ mg/dL (NEGATIVE); RBC, URINE AUTO 0 /HPF (0-3); SPECIFIC GRAVITY URINE AUTO 1.013 (1.002-1.035); SQUAMOUS EPITHELIAL CELL UR AU 8 /HPF (0-6); UROBILINOGEN, URINE AUTO 0.2 mg/dL (0.0-2.0); WBC, URINE AUTO TNTC /HPF (0-3)
[2021-10-21 17:16] LABS: COLOR, URINE YELLOW (YELLOW)
[2021-10-21 17:49] LABS: MAU/CREAT RATIO 866.6 MCG/MG (0.0-30.0)
== END ==
LOC: M LAB REF 16:12
PROVIDERS: ATTEND Internal Medicine
DX: R82.90 Unspecified abnormal findings in urine (principal); N39.0 Urinary tract infection, site not specified; N18.4 Chronic kidney disease, stage 4 (severe)

== ENCOUNTER 2021-10-31 09:18 | Inpatient (IN) | payer MEDICARE, BC ==
[~2021-10-31] VITALS: Ht 152.4 cm; Wt 72.6 kg
[2021-10-31] MEDS ORDERED: MORPHINE 4 MG/ML 1ML VIAL/SYRINGE (J2270) IV PRN (09:30)
[2021-10-31] MEDS ORDERED: ONDANSETRON 4MG/2ML VIAL IV ONE (09:30)
[2021-10-31 11:29] LABS: HEMATOCRIT 36.2 % (36.0-47.0); HEMOGLOBIN 11.6 g/dl (12.0-15.5); MEAN CORPUSCULAR HEMOGLOBIN 32.5 pg (27.0-33.0); MEAN CORPUSCULAR VOLUME 101.4 fl (80.0-96.0); PLATELET COUNT, AUTOMATED 199 10^3/uL (150-450); RED BLOOD COUNT 3.57 10^6/uL (4.00-5.40); WHITE BLOOD COUNT 7.5 10^3/uL (4.0-10.0)
[2021-10-31 11:46] LABS: CALCIUM LEVEL 9.7 MG/DL (8.8-10.2); CREATININE FOR GFR 1.7 MG/DL (0.55-1.30); GLOMERULAR FILTRATION RATE 30.7 (>32); POTASSIUM SERUM 4.2 MEQ/L (3.5-5.1)
[2021-10-31 12:01] LABS: RSV AMPLIFICATION NEGATIVE (NEGATIVE)
[2021-10-31] MEDS ORDERED: ALBU8.5H INH (12:38)
[2021-10-31] MEDS ORDERED: TORS20TA2 PO (12:38)
[2021-10-31] MEDS ORDERED: ZINC1TAB2 PO (12:38)
[2021-10-31] MEDS ORDERED: LIDO1PAD TOP (12:38)
[2021-10-31] MEDS ORDERED: CLOP75TA2 PO (12:38)
[2021-10-31] MEDS ORDERED: POTA-141 PO (12:38)
[2021-10-31] MEDS ORDERED: PRESCAP PO (12:38)
[2021-10-31] MEDS ORDERED: ATEN25TA PO (12:38)
[2021-10-31] MEDS ORDERED: MAGN500T6 PO (12:38)
[2021-10-31] MEDS ORDERED: ALLO300T2 PO (12:38)
[2021-10-31] MEDS ORDERED: LOPE-39 PO (12:38)
[2021-10-31] MEDS ORDERED: CYAN2500 SL (12:38)
[2021-10-31] MEDS ORDERED: D3 S20002 PO (12:38)
[2021-10-31] MEDS ORDERED: ACET650T3 PO (12:38)
[2021-10-31] MEDS ORDERED: BACITAB PO (12:38)
[2021-10-31] MEDS ORDERED: HOME MED LIST COMPLETE! XX SCH (12:40)
[2021-10-31] MEDS ORDERED: ALBUTEROL 90 MCG/ACT 8GM HFA INHALER INH PRN (14:45)
[2021-10-31] MEDS ORDERED: LIDOCAINE 5% (LIDODERM) PATCH TOP PRN (14:45)
[2021-10-31] MEDS ORDERED: NS 1,000 ML IV SCH (15:00)
[2021-10-31] MEDS: allopurinoL 300 MG TAB PO SCH (15:51)
[2021-10-31] MEDS: atenoloL 25 MG TAB PO SCH (15:51)
[2021-10-31] MEDS: LACTOBACILLUS ACIDOPHILUS CAP (BACID) PO SCH (15:51)
[2021-10-31] MEDS: DOCUSATE SODIUM 100MG CAPSULE PO SCH ×2 (15:51→20:02)
[2021-10-31] MEDS: OMEPRAZOLE 20MG CAP PO SCH (15:51)
[2021-10-31 18:30] VITALS: BP 138/57
[2021-10-31] MEDS: MAGNESIUM GLUCONATE 500 MG TAB PO SCH (18:41)
[2021-10-31] MEDS: OCUVITE 1 TAB PO SCH (18:41)
[2021-10-31] MEDS: ACETAMINOPHEN TAB 650MG DOSE (2X325MG) PO PRN (20:04)
[2021-10-31] MEDS: **NOTE PATIENT COMMENT** MISC XX SCH (21:00)
[2021-10-31 22:00] VITALS: BP 139/55
[2021-11-01] MEDS ORDERED: IPRATROPIUM 0.5MG/ALBUTEROL 2.5MG INH SOL UD 3ML (DUONEB) NEB PRN (04:30)
[2021-11-01 04:55] LABS: VENOUS BASE EXCESS -3.1 (-2.0-2.0); VENOUS HCO3 21.2 MEQ/L (23.0-27.0); VENOUS O2 SATURATION 93.6 % (60.0-80.0); VENOUS PARTIAL PRESSURE CO2 35.4 mmHg (38.0-50.0); VENOUS PARTIAL PRESSURE O2 70.8 mmHg (30.0-50.0); VENOUS PH 7.396 UNITS (7.330-7.430); VENOUS STANDARD HCO3 21.8 MEQ/L; VENOUS TOTAL CO2 22.3 MEQ/L (24.0-28.0)
[2021-11-01 05:04] LABS: HEMATOCRIT 32.7 % (36.0-47.0); HEMOGLOBIN 10.5 g/dl (12.0-15.5); MEAN CORPUSCULAR HEMOGLOBIN 32.8 pg (27.0-33.0); MEAN CORPUSCULAR HGB CONC 32.1 g/dl (32.0-36.5); MEAN CORPUSCULAR VOLUME 102.2 fl (80.0-96.0); PLATELET COUNT, AUTOMATED 187 10^3/uL (150-450); WHITE BLOOD COUNT 8.2 10^3/uL (4.0-10.0)
[2021-11-01 05:35] LABS: CALCIUM LEVEL 8.9 MG/DL (8.8-10.2); CREATININE FOR GFR 1.27 MG/DL (0.55-1.30); MAGNESIUM LEVEL 1.8 MG/DL (1.8-2.4); POTASSIUM SERUM 4.3 MEQ/L (3.5-5.1)
[2021-11-01] MEDS ORDERED: MAGNESIUM OXIDE 400MG TAB (MAG-OX) PO ONE (06:05)
[2021-11-01] MEDS: ACETAMINOPHEN TAB 650MG DOSE (2X325MG) PO PRN ×3 (06:22→20:34)
[2021-11-01 07:05] VITALS: BP 160/61
[2021-11-01] MEDS: LACTOBACILLUS ACIDOPHILUS CAP (BACID) PO SCH (08:01)
[2021-11-01] MEDS: OMEPRAZOLE 20MG CAP PO SCH (08:01)
[2021-11-01] MEDS: allopurinoL 300 MG TAB PO SCH (08:01)
[2021-11-01] MEDS: OCUVITE 1 TAB PO SCH (08:01)
[2021-11-01] MEDS: DOCUSATE SODIUM 100MG CAPSULE PO SCH ×2 (08:04→20:28)
[2021-11-01] MEDS: atenoloL 25 MG TAB PO SCH (08:04)
[2021-11-01] MEDS ORDERED: FUROSEMIDE 40MG/4ML VIAL (J1940) IV ONE (08:50)
[2021-11-01] MEDS: MAGNESIUM GLUCONATE 500 MG TAB PO SCH (09:54)
[2021-11-01 14:00] VITALS: BP 145/50
[2021-11-01 20:00] VITALS: BP 115/50
[2021-11-01] MEDS: **NOTE PATIENT COMMENT** MISC XX SCH (20:29)
[2021-11-02 06:00] VITALS: BP 153/66
[2021-11-02 07:58] LABS: HEMATOCRIT 33.3 % (36.0-47.0); HEMOGLOBIN 10.6 g/dl (12.0-15.5); MEAN CORPUSCULAR HEMOGLOBIN 32.3 pg (27.0-33.0); MEAN CORPUSCULAR HGB CONC 31.8 g/dl (32.0-36.5); MEAN CORPUSCULAR VOLUME 101.5 fl (80.0-96.0); PLATELET COUNT, AUTOMATED 195 10^3/uL (150-450); RED BLOOD COUNT 3.28 10^6/uL (4.00-5.40); WHITE BLOOD COUNT 7.8 10^3/uL (4.0-10.0)
[2021-11-02 08:20] LABS: CALCIUM LEVEL 8.7 MG/DL (8.8-10.2); CREATININE FOR GFR 1.3 MG/DL (0.55-1.30); GLOMERULAR FILTRATION RATE 41.9 (>32); MAGNESIUM LEVEL 1.7 MG/DL (1.8-2.4); POTASSIUM SERUM 4.2 MEQ/L (3.5-5.1)
[2021-11-02] MEDS: MAGNESIUM GLUCONATE 500 MG TAB PO SCH (08:56)
[2021-11-02] MEDS: LACTOBACILLUS ACIDOPHILUS CAP (BACID) PO SCH (08:56)
[2021-11-02] MEDS: DOCUSATE SODIUM 100MG CAPSULE PO SCH ×2 (08:56→21:00)
[2021-11-02] MEDS: atenoloL 25 MG TAB PO SCH (09:00)
[2021-11-02] MEDS: OMEPRAZOLE 20MG CAP PO SCH (09:04)
[2021-11-02] MEDS: CLOPIDOGREL 75 MG TAB PO SCH (09:04)
[2021-11-02] MEDS: allopurinoL 300 MG TAB PO SCH (09:05)
[2021-11-02] MEDS: ACETAMINOPHEN TAB 650MG DOSE (2X325MG) PO PRN ×3 (09:10→22:24)
[2021-11-02] MEDS: OCUVITE 1 TAB PO SCH (09:10)
[2021-11-02 14:00] VITALS: BP 131/48
[2021-11-02] MEDS: HEPARIN SOD (PORCINE) 5000UNITS/ML 1ML VIAL/SYRINGE SQ SCH ×2 (14:13→22:11)
[2021-11-02 19:57] VITALS: BP 139/51
[2021-11-02] MEDS: **NOTE PATIENT COMMENT** MISC XX SCH (21:00)
[2021-11-03 05:06] VITALS: BP 141/54
[2021-11-03] MEDS: HEPARIN SOD (PORCINE) 5000UNITS/ML 1ML VIAL/SYRINGE SQ SCH ×3 (05:25→22:40)
[2021-11-03] MEDS: diphenhydrAMINE 50MG/ML VIAL (J1200) IV PRN (06:03)
[2021-11-03 06:17] LABS: HEMATOCRIT 33.2 % (36.0-47.0); HEMOGLOBIN 10.5 g/dl (12.0-15.5); MEAN CORPUSCULAR HEMOGLOBIN 32.5 pg (27.0-33.0); MEAN CORPUSCULAR HGB CONC 31.6 g/dl (32.0-36.5); MEAN CORPUSCULAR VOLUME 102.8 fl (80.0-96.0); PLATELET COUNT, AUTOMATED 204 10^3/uL (150-450); RED BLOOD COUNT 3.23 10^6/uL (4.00-5.40); WHITE BLOOD COUNT 7.7 10^3/uL (4.0-10.0)
[2021-11-03 06:40] LABS: CREATININE FOR GFR 1.4 MG/DL (0.55-1.30); GLOMERULAR FILTRATION RATE 38.4 (>32); MAGNESIUM LEVEL 1.8 MG/DL (1.8-2.4); POTASSIUM SERUM 4.6 MEQ/L (3.5-5.1)
[2021-11-03] MEDS: LACTOBACILLUS ACIDOPHILUS CAP (BACID) PO SCH (08:23)
[2021-11-03] MEDS: OMEPRAZOLE 20MG CAP PO SCH (08:23)
[2021-11-03] MEDS: MAGNESIUM GLUCONATE 500 MG TAB PO SCH (08:23)
[2021-11-03] MEDS: allopurinoL 300 MG TAB PO SCH (08:23)
[2021-11-03] MEDS: OCUVITE 1 TAB PO SCH (08:23)
[2021-11-03] MEDS: atenoloL 25 MG TAB PO SCH (08:24)
[2021-11-03] MEDS: CLOPIDOGREL 75 MG TAB PO SCH (08:24)
[2021-11-03] MEDS: DOCUSATE SODIUM 100MG CAPSULE PO SCH ×2 (08:25→20:21)
[2021-11-03] MEDS: OLMESARTAN MEDOXOMIL 20 MG TAB (BENICAR) PO SCH (09:38)
[2021-11-03] MEDS: TORSEMIDE 20 MG TAB PO SCH (09:38)
[2021-11-03] MEDS: ONDANSETRON 4MG/2ML VIAL IV PRN (12:04)
[2021-11-03] MEDS ORDERED: KETOROLAC 30 MG/ML 1ML VIAL IV ONE (20:05)
[2021-11-03] MEDS ORDERED: carisoprodoL 350 MG TAB PO PRN (20:05)
[2021-11-03 20:16] LABS: BASO % 0.4 % (0.0-1.0); EOS # 0.4 10^3/uL (0.0-0.5); EOS % 5.4 % (0.0-3.0); HEMOGLOBIN 10.8 g/dl (12.0-15.5); LYMPH % 12.5 % (24.0-44.0); MEAN CORPUSCULAR HEMOGLOBIN 32.7 pg (27.0-33.0); MEAN CORPUSCULAR HGB CONC 31.8 g/dl (32.0-36.5); MONO # 0.7 10^3/uL (0.0-0.8); MONO % 8.4 % (2.0-8.0); NEUTROPHILS # 5.8 10^3/uL (1.5-8.5); NEUTROPHILS % 72.5 % (36.0-66.0); PLATELET COUNT, AUTOMATED 209 10^3/uL (150-450)
[2021-11-03] MEDS: ANALGESIC BALM CRM 3OZ TOP PRN (20:19)
[2021-11-03 20:38] LABS: C REACTIVE PROTEIN QUANTITATIV 5.13 MG/DL (0.00-0.30); URIC ACID 3.6 MG/DL (2.6-6.0)
[2021-11-03] MEDS: **NOTE PATIENT COMMENT** MISC XX SCH (20:44)
[2021-11-04] MEDS ORDERED: KETOROLAC 30 MG/ML 1ML VIAL IV PRN (02:00)
[2021-11-04 04:11] VITALS: BP 137/64
[2021-11-04] MEDS: HEPARIN SOD (PORCINE) 5000UNITS/ML 1ML VIAL/SYRINGE SQ SCH ×3 (05:34→21:35)
[2021-11-04 06:27] LABS: HEMATOCRIT 35.1 % (36.0-47.0); HEMOGLOBIN 10.7 g/dl (12.0-15.5); MEAN CORPUSCULAR HGB CONC 30.5 g/dl (32.0-36.5); MEAN CORPUSCULAR VOLUME 105.1 fl (80.0-96.0); PLATELET COUNT, AUTOMATED 193 10^3/uL (150-450); RED BLOOD COUNT 3.34 10^6/uL (4.00-5.40); WHITE BLOOD COUNT 7.1 10^3/uL (4.0-10.0)
[2021-11-04 06:52] LABS: C REACTIVE PROTEIN QUANTITATIV 4.81 MG/DL (0.00-0.30); CREATININE FOR GFR 1.73 MG/DL (0.55-1.30); GLOMERULAR FILTRATION RATE 30.1 (>32); MAGNESIUM LEVEL 1.7 MG/DL (1.8-2.4); POTASSIUM SERUM 4.7 MEQ/L (3.5-5.1)
[2021-11-04] MEDS: LACTOBACILLUS ACIDOPHILUS CAP (BACID) PO SCH (09:51)
[2021-11-04] MEDS: CLOPIDOGREL 75 MG TAB PO SCH (09:51)
[2021-11-04] MEDS: MAGNESIUM GLUCONATE 500 MG TAB PO SCH (09:51)
[2021-11-04] MEDS: DOCUSATE SODIUM 100MG CAPSULE PO SCH ×2 (09:51→19:59)
[2021-11-04] MEDS: atenoloL 25 MG TAB PO SCH (09:52)
[2021-11-04] MEDS: OMEPRAZOLE 20MG CAP PO SCH (09:53)
[2021-11-04] MEDS: allopurinoL 300 MG TAB PO SCH (09:53)
[2021-11-04] MEDS: OLMESARTAN MEDOXOMIL 20 MG TAB (BENICAR) PO SCH (09:53)
[2021-11-04] MEDS: OCUVITE 1 TAB PO SCH (09:56)
[2021-11-04] MEDS: ACETAMINOPHEN TAB 650MG DOSE (2X325MG) PO PRN ×2 (12:21→19:59)
[2021-11-04 14:00] VITALS: BP 132/67
[2021-11-04] MEDS: **NOTE PATIENT COMMENT** MISC XX SCH (19:38)
[2021-11-04] MEDS: diphenhydrAMINE 50MG/ML VIAL (J1200) IV PRN (19:59)
[2021-11-04] MEDS: ANALGESIC BALM CRM 3OZ TOP PRN (19:59)
[2021-11-04] MEDS: ONDANSETRON 4MG/2ML VIAL IV PRN (20:01)
[2021-11-04 22:00] VITALS: BP 130/62
[2021-11-05] MEDS: ANALGESIC BALM CRM 3OZ TOP PRN ×2 (04:43→20:58)
[2021-11-05] MEDS: HEPARIN SOD (PORCINE) 5000UNITS/ML 1ML VIAL/SYRINGE SQ SCH ×3 (05:09→20:57)
[2021-11-05] MEDS: ACETAMINOPHEN TAB 650MG DOSE (2X325MG) PO PRN ×3 (05:11→20:58)
[2021-11-05 06:00] VITALS: BP 124/44
[2021-11-05 06:33] LABS: HEMATOCRIT 30.7 % (36.0-47.0); HEMOGLOBIN 9.7 g/dl (12.0-15.5); MEAN CORPUSCULAR HEMOGLOBIN 32.8 pg (27.0-33.0); MEAN CORPUSCULAR HGB CONC 31.6 g/dl (32.0-36.5); MEAN CORPUSCULAR VOLUME 103.7 fl (80.0-96.0); PLATELET COUNT, AUTOMATED 189 10^3/uL (150-450); RED BLOOD COUNT 2.96 10^6/uL (4.00-5.40); WHITE BLOOD COUNT 11.3 10^3/uL (4.0-10.0)
[2021-11-05 06:54] LABS: CALCIUM LEVEL 8.8 MG/DL (8.8-10.2); CREATININE FOR GFR 1.59 MG/DL (0.55-1.30); GLOMERULAR FILTRATION RATE 33.2 (>32); MAGNESIUM LEVEL 1.6 MG/DL (1.8-2.4); POTASSIUM SERUM 4.8 MEQ/L (3.5-5.1)
[2021-11-05] MEDS: CLOPIDOGREL 75 MG TAB PO SCH (07:50)
[2021-11-05] MEDS: MAGNESIUM GLUCONATE 500 MG TAB PO SCH (07:52)
[2021-11-05] MEDS: LACTOBACILLUS ACIDOPHILUS CAP (BACID) PO SCH (07:52)
[2021-11-05] MEDS: OCUVITE 1 TAB PO SCH (07:52)
[2021-11-05] MEDS: DOCUSATE SODIUM 100MG CAPSULE PO SCH ×2 (07:52→20:57)
[2021-11-05] MEDS: atenoloL 25 MG TAB PO SCH (07:54)
[2021-11-05] MEDS: OMEPRAZOLE 20MG CAP PO SCH (07:57)
[2021-11-05] MEDS: allopurinoL 300 MG TAB PO SCH (07:57)
[2021-11-05] MEDS ORDERED: TORS20TA2 PO ×2 (08:35→08:36)
[2021-11-05] MEDS ORDERED: MAG SULF 1GM/100ML (MAG RUN) 1 GM in IV 1 EA IV ONE (09:00)
[2021-11-05] MEDS: TORSEMIDE 20 MG TAB PO SCH (09:24)
[2021-11-05] MEDS: LACTULOSE 20 GM/30 ML SYRUP UD PO ONE ×2 (13:53→14:21)
[2021-11-05 14:00] VITALS: BP 137/72
[2021-11-05] MEDS: **NOTE PATIENT COMMENT** MISC XX SCH (19:41)
[2021-11-05] MEDS ORDERED: SENNA 8.6 MG TAB (SENOKOT) PO SCH (21:00)
[2021-11-05 22:02] VITALS: BP 127/51
[2021-11-06] MEDS: ACETAMINOPHEN TAB 650MG DOSE (2X325MG) PO PRN ×2 (04:45→14:06)
[2021-11-06] MEDS: HEPARIN SOD (PORCINE) 5000UNITS/ML 1ML VIAL/SYRINGE SQ SCH ×2 (05:02→13:46)
[2021-11-06 05:57] LABS: HEMATOCRIT 29.8 % (36.0-47.0); HEMOGLOBIN 9.6 g/dl (12.0-15.5); MEAN CORPUSCULAR HEMOGLOBIN 32.9 pg (27.0-33.0); MEAN CORPUSCULAR HGB CONC 32.2 g/dl (32.0-36.5); MEAN CORPUSCULAR VOLUME 102.1 fl (80.0-96.0); PLATELET COUNT, AUTOMATED 209 10^3/uL (150-450); RED BLOOD COUNT 2.92 10^6/uL (4.00-5.40); WHITE BLOOD COUNT 9.1 10^3/uL (4.0-10.0)
[2021-11-06 06:00] VITALS: BP 116/50
[2021-11-06] MEDS: ONDANSETRON 4MG/2ML VIAL IV PRN (06:17)
[2021-11-06 06:47] LABS: CALCIUM LEVEL 8.5 MG/DL (8.8-10.2); CREATININE FOR GFR 1.59 MG/DL (0.55-1.30); GLOMERULAR FILTRATION RATE 33.2 (>32); MAGNESIUM LEVEL 1.8 MG/DL (1.8-2.4); POTASSIUM SERUM 4.8 MEQ/L (3.5-5.1)
[2021-11-06] MEDS: MAGNESIUM GLUCONATE 500 MG TAB PO SCH (08:37)
[2021-11-06] MEDS: CLOPIDOGREL 75 MG TAB PO SCH (08:37)
[2021-11-06] MEDS: DOCUSATE SODIUM 100MG CAPSULE PO SCH (08:38)
[2021-11-06] MEDS: OCUVITE 1 TAB PO SCH (08:38)
[2021-11-06] MEDS: OMEPRAZOLE 20MG CAP PO SCH (08:38)
[2021-11-06] MEDS: allopurinoL 300 MG TAB PO SCH (08:38)
[2021-11-06 08:41] VITALS: BP 116/58
[2021-11-06] MEDS: LACTOBACILLUS ACIDOPHILUS CAP (BACID) PO SCH (08:41)
[2021-11-06] MEDS: TORSEMIDE 20 MG TAB PO SCH (08:41)
[2021-11-06] MEDS: atenoloL 25 MG TAB PO SCH (08:41)
[2021-11-06] MEDS ORDERED: FLEET OIL RETENTION ENEMA PR PRN (10:15)
[2021-11-06] MEDS ORDERED: LACTULOSE 20 GM/30 ML SYRUP UD PO ONE (11:40)
[2021-11-06] MEDS: ANALGESIC BALM CRM 3OZ TOP PRN (13:48)
[2021-11-06 14:00] VITALS: BP 131/49
== END 2021-11-06 16:19 | DRG 563 ==
LOC: EDBD 09:18 → M ED 09:18 → M ED INP 12:15 → ENRESERV 17:03 → M MSPAV 18:14
PROVIDERS: ADMIT Family Medicine; ATTEND Family Medicine
DX: S82.435A Nondisplaced oblique fracture of shaft of left fibula, initial encounter for closed fracture (principal); N17.9 Acute kidney failure, unspecified; J90 Pleural effusion, not elsewhere classified; J45.909 Unspecified asthma, uncomplicated; I50.9 Heart failure, unspecified; I73.9 Peripheral vascular disease, unspecified; I11.0 Hypertensive heart disease with heart failure; K21.9 Gastro-esophageal reflux disease without esophagitis; E78.5 Hyperlipidemia, unspecified; L40.9 Psoriasis, unspecified; E78.00 Pure hypercholesterolemia, unspecified; M10.9 Gout, unspecified; E83.42 Hypomagnesemia; M25.462 Effusion, left knee; W18.30XA Fall on same level, unspecified, initial encounter; Y92.018 Other place in single-family (private) house as the place of occurrence of the external cause; Z79.899 Other long term (current) drug therapy; Z88.8 Allergy status to other drugs, medicaments and biological substances; Z87.891 Personal history of nicotine dependence; Z96.642 Presence of left artificial hip joint

== ENCOUNTER 2021-11-06 15:13 | Inpatient (IN) | payer MEDICARE, BC ==
[~2021-11-06] VITALS: Ht 152.4 cm; Wt 70.6 kg
[~2021-11-06 15:13] MED LIST changes: +ACET650T3 PO; +ALBU8.5H INH; +ALLO300T2 PO; +BACITAB PO; +CLOP75TA2 PO; +CYAN2500 SL; +D3 S20002 PO; +LIDO1PAD TOP; +LOPE-39 PO; +MAGN500T6 PO; +POTA-141 PO; +PRESCAP PO; +TORS20TA2 PO; +ZINC1TAB2 PO
[2021-11-06] MEDS ORDERED: BISACODYL 10 MG SUPP PR PRN (15:15)
[2021-11-06 16:36] VITALS: BP 134/63
[2021-11-06] MEDS: COMBIVENT RESPIMAT 100-20MCG INHALER 4GM INH SCH (19:45)
[2021-11-06] MEDS: ONDANSETRON 4 MG ORAL DISINTEGRATING TAB PO PRN (19:56)
[2021-11-06] MEDS ORDERED: FLEET OIL RETENTION ENEMA PR ONE (20:15)
[2021-11-06] MEDS ORDERED: ACETAMINOPHEN *IV* 1,000 MG in IV 1 EA IV ONE (21:00)
[2021-11-06] MEDS: ACETAMINOPHEN 500 MG TAB PO SCH (21:00)
[2021-11-06] MEDS: BISACODYL 5 MG TAB PO SCH (21:00)
[2021-11-06] MEDS: SENNA 8.6 MG TAB (SENOKOT) PO SCH (21:00)
[2021-11-06] MEDS: DOCUSATE SODIUM 100MG CAPSULE PO SCH (21:00)
[2021-11-06] MEDS ORDERED: PROCHLORPERAZINE 10MG/2ML VIAL (J0780 PER 1) IV ONE (21:00)
[2021-11-06 23:03] VITALS: BP 131/60
[2021-11-06] MEDS: HEPARIN SOD (PORCINE) 5000UNITS/ML 1ML VIAL/SYRINGE SC SCH (23:09)
[2021-11-06] MEDS: REMEDY PHYTOPLEX Z-GUARD PASTE 113GM TUBE (FROM STOREROOM PRODUCT) TOP SCH (23:09)
[2021-11-07] MEDS: HEPARIN SOD (PORCINE) 5000UNITS/ML 1ML VIAL/SYRINGE SC SCH ×3 (05:00→21:33)
[2021-11-07 06:00] VITALS: BP 145/67
[2021-11-07 07:04] LABS: BASO % 0.5 % (0.0-1.0); EOS # 0.2 10^3/uL (0.0-0.5); EOS % 2.4 % (0.0-3.0); HEMATOCRIT 31.3 % (36.0-47.0); LYMPH # 1.1 10^3/uL (1.5-5.0); LYMPH % 16.3 % (24.0-44.0); MEAN CORPUSCULAR HEMOGLOBIN 32.2 pg (27.0-33.0); MEAN CORPUSCULAR HGB CONC 31.9 g/dl (32.0-36.5); MEAN CORPUSCULAR VOLUME 100.6 fl (80.0-96.0); MONO # 0.5 10^3/uL (0.0-0.8); MONO % 7.8 % (2.0-8.0); NEUTROPHILS # 4.7 10^3/uL (1.5-8.5); NEUTROPHILS % 71.9 % (36.0-66.0); PLATELET COUNT, AUTOMATED 241 10^3/uL (150-450); RED BLOOD COUNT 3.11 10^6/uL (4.00-5.40); WHITE BLOOD COUNT 6.6 10^3/uL (4.0-10.0)
[2021-11-07] MEDS: COMBIVENT RESPIMAT 100-20MCG INHALER 4GM INH SCH ×3 (07:15→19:07)
[2021-11-07 07:37] LABS: ALBUMIN 2.3 GM/DL (3.2-5.2); BILIRUBIN,TOTAL 0.3 MG/DL (0.2-1.0); CALCIUM LEVEL 9.3 MG/DL (8.8-10.2); CREATININE FOR GFR 1.31 MG/DL (0.55-1.30); GLOMERULAR FILTRATION RATE 41.5 (>32); POTASSIUM SERUM 4.5 MEQ/L (3.5-5.1); TOTAL PROTEIN 5.4 GM/DL (6.4-8.2)
[2021-11-07] MEDS: atenoloL 25 MG TAB PO SCH ×2 (07:58→08:28)
[2021-11-07] MEDS: LACTOBACILLUS ACIDOPHILUS CAP (BACID) PO SCH (08:26)
[2021-11-07] MEDS: ACETAMINOPHEN 500 MG TAB PO SCH ×3 (08:26→21:31)
[2021-11-07] MEDS: CLOPIDOGREL 75 MG TAB PO SCH (08:26)
[2021-11-07] MEDS: allopurinoL 300 MG TAB PO SCH (08:27)
[2021-11-07] MEDS: TORSEMIDE 20 MG TAB PO SCH (08:27)
[2021-11-07] MEDS: OCUVITE 1 TAB PO SCH (08:28)
[2021-11-07] MEDS: DOCUSATE SODIUM 100MG CAPSULE PO SCH ×2 (08:28→21:31)
[2021-11-07] MEDS: OMEPRAZOLE 20MG CAP PO SCH (08:28)
[2021-11-07] MEDS: MAGNESIUM GLUCONATE 500 MG TAB PO SCH (08:29)
[2021-11-07] MEDS: REMEDY PHYTOPLEX Z-GUARD PASTE 113GM TUBE (FROM STOREROOM PRODUCT) TOP SCH ×3 (08:29→21:32)
[2021-11-07] MEDS ORDERED: HOME MED LIST COMPLETE! XX SCH (10:50)
[2021-11-07] MEDS: ONDANSETRON 4 MG ORAL DISINTEGRATING TAB PO PRN (11:17)
[2021-11-07 11:18] VITALS: BP 125/58
[2021-11-07] MEDS ORDERED: ACETAMINOPHEN 500 MG TAB PO ONE (13:00)
[2021-11-07 14:00] VITALS: BP 120/62
[2021-11-07] MEDS: LIDOCAINE 5% (LIDODERM) PATCH TD SCH (14:20)
[2021-11-07] MEDS: SIMETHICONE 80MG CHEW TAB PO SCH ×2 (15:20→21:37)
[2021-11-07 20:23] VITALS: BP 118/57
[2021-11-07] MEDS: BISACODYL 5 MG TAB PO SCH (21:32)
[2021-11-07] MEDS: SENNA 8.6 MG TAB (SENOKOT) PO SCH (21:32)
[2021-11-07] MEDS: **NOTE PATIENT COMMENT** MISC XX SCH (21:32)
[2021-11-08] MEDS: HEPARIN SOD (PORCINE) 5000UNITS/ML 1ML VIAL/SYRINGE SC SCH ×3 (05:32→21:06)
[2021-11-08 06:15] VITALS: BP 140/82
[2021-11-08] MEDS: COMBIVENT RESPIMAT 100-20MCG INHALER 4GM INH SCH ×3 (07:32→20:27)
[2021-11-08 07:54] LABS: BASO # 0.1 10^3/uL (0.0-0.2); BASO % 0.7 % (0.0-1.0); EOS # 0.3 10^3/uL (0.0-0.5); EOS % 4.5 % (0.0-3.0); HEMATOCRIT 33.4 % (36.0-47.0); HEMOGLOBIN 10.4 g/dl (12.0-15.5); LYMPH # 1.3 10^3/uL (1.5-5.0); LYMPH % 18.5 % (24.0-44.0); MEAN CORPUSCULAR HEMOGLOBIN 31.9 pg (27.0-33.0); MEAN CORPUSCULAR HGB CONC 31.1 g/dl (32.0-36.5); MEAN CORPUSCULAR VOLUME 102.5 fl (80.0-96.0); MONO # 0.6 10^3/uL (0.0-0.8); MONO % 7.9 % (2.0-8.0); NEUTROPHILS # 4.6 10^3/uL (1.5-8.5); NEUTROPHILS % 66.4 % (36.0-66.0); PLATELET COUNT, AUTOMATED 275 10^3/uL (150-450); RED BLOOD COUNT 3.26 10^6/uL (4.00-5.40); WHITE BLOOD COUNT 6.9 10^3/uL (4.0-10.0)
[2021-11-08 08:20] LABS: CALCIUM LEVEL 9.8 MG/DL (8.8-10.2); CREATININE FOR GFR 1.58 MG/DL (0.55-1.30); GLOMERULAR FILTRATION RATE 33.4 (>32); POTASSIUM SERUM 4.5 MEQ/L (3.5-5.1)
[2021-11-08] MEDS: LACTOBACILLUS ACIDOPHILUS CAP (BACID) PO SCH (08:45)
[2021-11-08] MEDS: OMEPRAZOLE 20MG CAP PO SCH (08:45)
[2021-11-08] MEDS: MAGNESIUM GLUCONATE 500 MG TAB PO SCH (08:45)
[2021-11-08] MEDS: DOCUSATE SODIUM 100MG CAPSULE PO SCH ×2 (08:45→20:16)
[2021-11-08] MEDS: allopurinoL 300 MG TAB PO SCH (08:49)
[2021-11-08] MEDS: CLOPIDOGREL 75 MG TAB PO SCH (08:49)
[2021-11-08] MEDS: OCUVITE 1 TAB PO SCH (08:49)
[2021-11-08] MEDS: SIMETHICONE 80MG CHEW TAB PO SCH ×3 (08:49→20:16)
[2021-11-08] MEDS: TORSEMIDE 20 MG TAB PO SCH (08:50)
[2021-11-08] MEDS: atenoloL 25 MG TAB PO SCH (08:50)
[2021-11-08] MEDS: REMEDY PHYTOPLEX Z-GUARD PASTE 113GM TUBE (FROM STOREROOM PRODUCT) TOP SCH ×3 (08:51→20:02)
[2021-11-08] MEDS: ACETAMINOPHEN 500 MG TAB PO SCH ×2 (08:52→20:17)
[2021-11-08] MEDS: LIDOCAINE 5% (LIDODERM) PATCH TD SCH (08:54)
[2021-11-08 09:42] LABS: MAGNESIUM LEVEL 1.7 MG/DL (1.8-2.4)
[2021-11-08] MEDS: MAG SULF 1GM/100ML (MAG RUN) 1 GM in IV 1 EA IV SCH ×2 (10:48→11:47)
[2021-11-08] MEDS ORDERED: ACETAMINOPHEN TAB 650MG DOSE (2X325MG) PO PRN (11:25)
[2021-11-08 14:00] VITALS: BP 116/53
[2021-11-08 19:55] VITALS: BP 136/63
[2021-11-08] MEDS: **NOTE PATIENT COMMENT** MISC XX SCH (20:02)
[2021-11-08] MEDS: SENNA 8.6 MG TAB (SENOKOT) PO SCH (20:17)
[2021-11-08] MEDS: BISACODYL 5 MG TAB PO SCH (20:17)
[2021-11-09 05:47] VITALS: BP 140/64
[2021-11-09] MEDS: ACETAMINOPHEN 500 MG TAB PO SCH ×2 (06:36→20:01)
[2021-11-09] MEDS: HEPARIN SOD (PORCINE) 5000UNITS/ML 1ML VIAL/SYRINGE SC SCH ×3 (06:37→21:14)
[2021-11-09 06:52] LABS: CALCIUM LEVEL 9.3 MG/DL (8.8-10.2); CREATININE FOR GFR 1.6 MG/DL (0.55-1.30); GLOMERULAR FILTRATION RATE 32.9 (>32); POTASSIUM SERUM 4.7 MEQ/L (3.5-5.1)
[2021-11-09] MEDS: atenoloL 25 MG TAB PO SCH (07:34)
[2021-11-09] MEDS: MAGNESIUM GLUCONATE 500 MG TAB PO SCH (07:34)
[2021-11-09] MEDS: CLOPIDOGREL 75 MG TAB PO SCH (07:34)
[2021-11-09] MEDS: allopurinoL 300 MG TAB PO SCH (07:34)
[2021-11-09] MEDS: OCUVITE 1 TAB PO SCH (07:35)
[2021-11-09] MEDS: DOCUSATE SODIUM 100MG CAPSULE PO SCH ×2 (07:35→20:00)
[2021-11-09] MEDS: LACTOBACILLUS ACIDOPHILUS CAP (BACID) PO SCH (07:35)
[2021-11-09] MEDS: TORSEMIDE 20 MG TAB PO SCH (07:35)
[2021-11-09] MEDS: SIMETHICONE 80MG CHEW TAB PO SCH ×3 (07:35→20:01)
[2021-11-09] MEDS: OMEPRAZOLE 20MG CAP PO SCH (07:35)
[2021-11-09] MEDS: REMEDY PHYTOPLEX Z-GUARD PASTE 113GM TUBE (FROM STOREROOM PRODUCT) TOP SCH ×3 (07:36→20:01)
[2021-11-09] MEDS: LIDOCAINE 5% (LIDODERM) PATCH TD SCH (07:36)
[2021-11-09] MEDS: COMBIVENT RESPIMAT 100-20MCG INHALER 4GM INH SCH ×3 (08:01→19:43)
[2021-11-09 10:25] LABS: MAGNESIUM LEVEL 2.3 MG/DL (1.8-2.4)
[2021-11-09 14:00] VITALS: BP 135/89
[2021-11-09 19:44] VITALS: BP 119/56
[2021-11-09] MEDS: SENNA 8.6 MG TAB (SENOKOT) PO SCH (20:01)
[2021-11-09] MEDS: BISACODYL 5 MG TAB PO SCH (20:01)
[2021-11-09] MEDS: **NOTE PATIENT COMMENT** MISC XX SCH (20:04)
[2021-11-10] MEDS: HEPARIN SOD (PORCINE) 5000UNITS/ML 1ML VIAL/SYRINGE SC SCH ×3 (05:36→21:52)
[2021-11-10] MEDS: ACETAMINOPHEN 500 MG TAB PO SCH (05:36)
[2021-11-10 05:56] VITALS: BP 148/62
[2021-11-10] MEDS: COMBIVENT RESPIMAT 100-20MCG INHALER 4GM INH SCH ×3 (07:23→19:47)
[2021-11-10] MEDS: SIMETHICONE 80MG CHEW TAB PO SCH ×3 (08:32→21:00)
[2021-11-10] MEDS: allopurinoL 300 MG TAB PO SCH (08:33)
[2021-11-10] MEDS: LACTOBACILLUS ACIDOPHILUS CAP (BACID) PO SCH (08:33)
[2021-11-10] MEDS: atenoloL 25 MG TAB PO SCH (08:33)
[2021-11-10] MEDS: MAGNESIUM GLUCONATE 500 MG TAB PO SCH (08:33)
[2021-11-10] MEDS: TORSEMIDE 20 MG TAB PO SCH (08:33)
[2021-11-10] MEDS: DOCUSATE SODIUM 100MG CAPSULE PO SCH ×2 (08:33→21:52)
[2021-11-10] MEDS: OCUVITE 1 TAB PO SCH (08:33)
[2021-11-10] MEDS: OMEPRAZOLE 20MG CAP PO SCH (08:33)
[2021-11-10] MEDS: CLOPIDOGREL 75 MG TAB PO SCH (08:34)
[2021-11-10] MEDS: LIDOCAINE 5% (LIDODERM) PATCH TD SCH (08:34)
[2021-11-10] MEDS: REMEDY PHYTOPLEX Z-GUARD PASTE 113GM TUBE (FROM STOREROOM PRODUCT) TOP SCH ×3 (08:36→21:00)
[2021-11-10] MEDS: ACETAMINOPHEN 650MG ER TAB (TYLENOL ARTHRITIS) PO PRN ×2 (11:46→21:53)
[2021-11-10 14:00] VITALS: BP 138/63
[2021-11-10 19:50] VITALS: BP 140/65
[2021-11-10] MEDS: SENNA 8.6 MG TAB (SENOKOT) PO SCH (21:00)
[2021-11-10] MEDS: BISACODYL 5 MG TAB PO SCH (21:00)
[2021-11-10] MEDS: **NOTE PATIENT COMMENT** MISC XX SCH (21:00)
[2021-11-11 05:34] VITALS: BP 128/60
[2021-11-11] MEDS: HEPARIN SOD (PORCINE) 5000UNITS/ML 1ML VIAL/SYRINGE SC SCH ×3 (06:00→21:35)
[2021-11-11] MEDS: COMBIVENT RESPIMAT 100-20MCG INHALER 4GM INH SCH ×3 (07:19→20:00)
[2021-11-11] MEDS: ACETAMINOPHEN 650MG ER TAB (TYLENOL ARTHRITIS) PO PRN ×2 (08:32→21:34)
[2021-11-11] MEDS: DOCUSATE SODIUM 100MG CAPSULE PO SCH ×2 (08:52→21:33)
[2021-11-11] MEDS: allopurinoL 300 MG TAB PO SCH (08:52)
[2021-11-11] MEDS: OCUVITE 1 TAB PO SCH (08:53)
[2021-11-11] MEDS: SIMETHICONE 80MG CHEW TAB PO SCH ×3 (08:53→21:00)
[2021-11-11] MEDS: MAGNESIUM GLUCONATE 500 MG TAB PO SCH (08:53)
[2021-11-11] MEDS: LACTOBACILLUS ACIDOPHILUS CAP (BACID) PO SCH (08:53)
[2021-11-11] MEDS: TORSEMIDE 20 MG TAB PO SCH (08:53)
[2021-11-11] MEDS: CLOPIDOGREL 75 MG TAB PO SCH (08:53)
[2021-11-11] MEDS: atenoloL 25 MG TAB PO SCH (08:54)
[2021-11-11] MEDS: LIDOCAINE 5% (LIDODERM) PATCH TD SCH (08:54)
[2021-11-11] MEDS: OMEPRAZOLE 20MG CAP PO SCH (08:55)
[2021-11-11] MEDS: REMEDY PHYTOPLEX Z-GUARD PASTE 113GM TUBE (FROM STOREROOM PRODUCT) TOP SCH ×3 (08:56→21:00)
[2021-11-11 10:22] LABS: HEMATOCRIT 36.9 % (36.0-47.0); HEMOGLOBIN 11.8 g/dl (12.0-15.5); MEAN CORPUSCULAR HEMOGLOBIN 31.6 pg (27.0-33.0); MEAN CORPUSCULAR VOLUME 98.9 fl (80.0-96.0); PLATELET COUNT, AUTOMATED 302 10^3/uL (150-450); RED BLOOD COUNT 3.73 10^6/uL (4.00-5.40); WHITE BLOOD COUNT 8.5 10^3/uL (4.0-10.0)
[2021-11-11 10:55] LABS: BASOPHILS 2 % (0-1); EOSINOPHILS 2 % (0-3); LYMPHOCYTES 14 % (16-44); MONOCYTES 6 % (0-5); NEUTROPHILS 76 % (28-66); PLATELET ESTIMATE NORMAL (NORMAL)
[2021-11-11 10:56] LABS: CALCIUM LEVEL 9.6 MG/DL (8.8-10.2); CREATININE FOR GFR 1.59 MG/DL (0.55-1.30); GLOMERULAR FILTRATION RATE 33.2 (>32)
[2021-11-11 14:00] VITALS: BP 134/67
[2021-11-11] MEDS: SENNA 8.6 MG TAB (SENOKOT) PO SCH (21:00)
[2021-11-11] MEDS: BISACODYL 5 MG TAB PO SCH (21:00)
[2021-11-11 21:19] VITALS: BP 132/54
[2021-11-11] MEDS: **NOTE PATIENT COMMENT** MISC XX SCH (21:35)
[2021-11-12] MEDS: HEPARIN SOD (PORCINE) 5000UNITS/ML 1ML VIAL/SYRINGE SC SCH (05:13)
[2021-11-12 05:51] VITALS: BP 122/70
[2021-11-12] MEDS: COMBIVENT RESPIMAT 100-20MCG INHALER 4GM INH SCH ×3 (07:29→20:00)
[2021-11-12] MEDS: ACETAMINOPHEN 650MG ER TAB (TYLENOL ARTHRITIS) PO PRN ×3 (08:05→22:59)
[2021-11-12] MEDS: DOCUSATE SODIUM 100MG CAPSULE PO SCH ×2 (08:05→21:00)
[2021-11-12 08:45] VITALS: BP 122/70
[2021-11-12] MEDS: LACTOBACILLUS ACIDOPHILUS CAP (BACID) PO SCH (09:49)
[2021-11-12] MEDS: allopurinoL 300 MG TAB PO SCH (09:50)
[2021-11-12] MEDS: atenoloL 25 MG TAB PO SCH (09:50)
[2021-11-12] MEDS: OCUVITE 1 TAB PO SCH (09:51)
[2021-11-12] MEDS: MAGNESIUM GLUCONATE 500 MG TAB PO SCH (09:51)
[2021-11-12] MEDS: LIDOCAINE 5% (LIDODERM) PATCH TD SCH (09:51)
[2021-11-12] MEDS: TORSEMIDE 20 MG TAB PO SCH (09:53)
[2021-11-12] MEDS: CLOPIDOGREL 75 MG TAB PO SCH (09:53)
[2021-11-12] MEDS: SIMETHICONE 80MG CHEW TAB PO SCH (09:53)
[2021-11-12] MEDS: REMEDY PHYTOPLEX Z-GUARD PASTE 113GM TUBE (FROM STOREROOM PRODUCT) TOP SCH ×3 (09:54→21:00)
[2021-11-12] MEDS: OMEPRAZOLE 20MG CAP PO SCH (09:55)
[2021-11-12 14:50] VITALS: BP 122/62
[2021-11-12 20:00] VITALS: BP 138/63
[2021-11-12] MEDS: BISACODYL 5 MG TAB PO SCH (21:00)
[2021-11-12] MEDS: SENNA 8.6 MG TAB (SENOKOT) PO SCH (21:00)
[2021-11-12] MEDS: **NOTE PATIENT COMMENT** MISC XX SCH (21:53)
[2021-11-13 06:00] VITALS: BP 138/62
[2021-11-13 07:17] LABS: HEMOGLOBIN 11.5 g/dl (12.0-15.5); MEAN CORPUSCULAR HEMOGLOBIN 31.9 pg (27.0-33.0); MEAN CORPUSCULAR HGB CONC 31.9 g/dl (32.0-36.5); MEAN CORPUSCULAR VOLUME 99.7 fl (80.0-96.0); PLATELET COUNT, AUTOMATED 325 10^3/uL (150-450); RED BLOOD COUNT 3.61 10^6/uL (4.00-5.40); WHITE BLOOD COUNT 7.5 10^3/uL (4.0-10.0)
[2021-11-13] MEDS: COMBIVENT RESPIMAT 100-20MCG INHALER 4GM INH SCH ×3 (07:17→20:00)
[2021-11-13 07:31] LABS: ALBUMIN 2.8 GM/DL (3.2-5.2); CALCIUM LEVEL 9.3 MG/DL (8.8-10.2); CREATININE FOR GFR 1.37 MG/DL (0.55-1.30); GLOMERULAR FILTRATION RATE 39.4 (>32); PHOSPHORUS LEVEL 4.4 MG/DL (2.5-4.9)
[2021-11-13] MEDS: atenoloL 25 MG TAB PO SCH (07:33)
[2021-11-13] MEDS: TORSEMIDE 20 MG TAB PO SCH (07:38)
[2021-11-13] MEDS: MAGNESIUM GLUCONATE 500 MG TAB PO SCH (07:38)
[2021-11-13] MEDS: LIDOCAINE 5% (LIDODERM) PATCH TD SCH (07:38)
[2021-11-13] MEDS: LACTOBACILLUS ACIDOPHILUS CAP (BACID) PO SCH (07:38)
[2021-11-13] MEDS: CLOPIDOGREL 75 MG TAB PO SCH (07:38)
[2021-11-13] MEDS: allopurinoL 300 MG TAB PO SCH (07:38)
[2021-11-13] MEDS: DOCUSATE SODIUM 100MG CAPSULE PO SCH ×2 (07:39→21:00)
[2021-11-13] MEDS: OCUVITE 1 TAB PO SCH (07:39)
[2021-11-13] MEDS: SIMETHICONE 80MG CHEW TAB PO SCH (07:39)
[2021-11-13] MEDS: ENOXAPARIN 30MG/0.3ML SYRINGE (J1650 PER 10MG) SC SCH (07:39)
[2021-11-13] MEDS: REMEDY PHYTOPLEX Z-GUARD PASTE 113GM TUBE (FROM STOREROOM PRODUCT) TOP SCH ×3 (07:40→21:00)
[2021-11-13 07:48] LABS: BASOPHILS 2 % (0-1); EOSINOPHILS 3 % (0-3); LYMPHOCYTES 11 % (16-44); METAMYELOCYTES 1 % (0-0); MONOCYTES 6 % (0-5); NEUTROPHILS 77 % (28-66)
[2021-11-13 07:49] LABS: PLATELET ESTIMATE NORMAL (NORMAL)
[2021-11-13] MEDS: OMEPRAZOLE 20MG CAP PO SCH (08:16)
[2021-11-13] MEDS: ACETAMINOPHEN 650MG ER TAB (TYLENOL ARTHRITIS) PO PRN ×3 (08:17→21:15)
[2021-11-13 14:00] VITALS: BP 141/66
[2021-11-13 20:00] VITALS: BP 158/69
[2021-11-13] MEDS: BISACODYL 5 MG TAB PO SCH (21:00)
[2021-11-13] MEDS: SENNA 8.6 MG TAB (SENOKOT) PO SCH (21:00)
[2021-11-14 06:00] VITALS: BP 134/60
[2021-11-14] MEDS: COMBIVENT RESPIMAT 100-20MCG INHALER 4GM INH SCH ×3 (08:00→17:55)
[2021-11-14] MEDS: LACTOBACILLUS ACIDOPHILUS CAP (BACID) PO SCH (08:21)
[2021-11-14] MEDS: TORSEMIDE 20 MG TAB PO SCH (08:22)
[2021-11-14] MEDS: DOCUSATE SODIUM 100MG CAPSULE PO SCH ×2 (08:22→19:06)
[2021-11-14] MEDS: MAGNESIUM GLUCONATE 500 MG TAB PO SCH (08:24)
[2021-11-14] MEDS: SIMETHICONE 80MG CHEW TAB PO SCH (08:24)
[2021-11-14] MEDS: atenoloL 25 MG TAB PO SCH (08:25)
[2021-11-14] MEDS: CLOPIDOGREL 75 MG TAB PO SCH (08:25)
[2021-11-14] MEDS: OMEPRAZOLE 20MG CAP PO SCH (08:25)
[2021-11-14] MEDS: allopurinoL 300 MG TAB PO SCH (08:26)
[2021-11-14] MEDS: ACETAMINOPHEN 650MG ER TAB (TYLENOL ARTHRITIS) PO PRN ×2 (08:26→19:54)
[2021-11-14] MEDS: ENOXAPARIN 30MG/0.3ML SYRINGE (J1650 PER 10MG) SC SCH (08:26)
[2021-11-14] MEDS: REMEDY PHYTOPLEX Z-GUARD PASTE 113GM TUBE (FROM STOREROOM PRODUCT) TOP SCH ×3 (08:28→19:07)
[2021-11-14] MEDS: OCUVITE 1 TAB PO SCH (08:30)
[2021-11-14] MEDS ORDERED: LOPERAMIDE 2 MG CAPLET PO ONE (10:05)
[2021-11-14 14:00] VITALS: BP 120/60
[2021-11-14] MEDS: SENNA 8.6 MG TAB (SENOKOT) PO SCH (19:06)
[2021-11-14] MEDS: BISACODYL 5 MG TAB PO SCH (19:06)
[2021-11-14 20:00] VITALS: BP 124/50
[2021-11-15 05:00] VITALS: BP 130/60
[2021-11-15] MEDS: COMBIVENT RESPIMAT 100-20MCG INHALER 4GM INH SCH ×2 (07:22→13:45)
[2021-11-15] MEDS: OCUVITE 1 TAB PO SCH (08:34)
[2021-11-15] MEDS: allopurinoL 300 MG TAB PO SCH (08:34)
[2021-11-15] MEDS: DOCUSATE SODIUM 100MG CAPSULE PO SCH (08:34)
[2021-11-15 08:35] VITALS: BP 130/60
[2021-11-15] MEDS ORDERED: CLOP75TA2 PO (08:35)
[2021-11-15] MEDS ORDERED: OMEP-173 PO (08:35)
[2021-11-15] MEDS: CLOPIDOGREL 75 MG TAB PO SCH (08:35)
[2021-11-15] MEDS ORDERED: BACITAB PO (08:35)
[2021-11-15] MEDS: LACTOBACILLUS ACIDOPHILUS CAP (BACID) PO SCH (08:35)
[2021-11-15] MEDS: ACETAMINOPHEN 650MG ER TAB (TYLENOL ARTHRITIS) PO PRN (08:35)
[2021-11-15] MEDS ORDERED: TORS20TA2 PO (08:35)
[2021-11-15] MEDS: atenoloL 25 MG TAB PO SCH (08:35)
[2021-11-15] MEDS: SIMETHICONE 80MG CHEW TAB PO SCH (08:35)
[2021-11-15] MEDS ORDERED: ATEN25TA PO (08:35)
[2021-11-15] MEDS ORDERED: ALBU8.5H INH (08:35)
[2021-11-15] MEDS ORDERED: ALLO300T2 PO (08:35)
[2021-11-15] MEDS: OMEPRAZOLE 20MG CAP PO SCH (08:36)
[2021-11-15] MEDS: TORSEMIDE 20 MG TAB PO SCH (08:36)
[2021-11-15] MEDS: MAGNESIUM GLUCONATE 500 MG TAB PO SCH (08:36)
[2021-11-15] MEDS: ENOXAPARIN 30MG/0.3ML SYRINGE (J1650 PER 10MG) SC SCH (08:37)
[2021-11-15] MEDS: REMEDY PHYTOPLEX Z-GUARD PASTE 113GM TUBE (FROM STOREROOM PRODUCT) TOP SCH (08:37)
== END 2021-11-15 14:32 | disposition home or self-care (01) | DRG 560 ==
LOC: M PM&R 18:19
PROVIDERS: ADMIT Physical Medicine & Rehabilitation; ATTEND Physical Medicine & Rehabilitation
DX: S82.432D Displaced oblique fracture of shaft of left fibula, subsequent encounter for closed fracture with routine healing (principal); N17.9 Acute kidney failure, unspecified; J90 Pleural effusion, not elsewhere classified; I13.0 Hypertensive heart and chronic kidney disease with heart failure and stage 1 through stage 4 chronic kidney disease, or unspecified chronic kidney disease; E87.1 Hypo-osmolality and hyponatremia; I73.9 Peripheral vascular disease, unspecified; E78.5 Hyperlipidemia, unspecified; L40.9 Psoriasis, unspecified; M10.9 Gout, unspecified; K21.9 Gastro-esophageal reflux disease without esophagitis; Z74.09 Other reduced mobility; Z74.1 Need for assistance with personal care; K59.00 Constipation, unspecified; Z90.49 Acquired absence of other specified parts of digestive tract; Z96.642 Presence of left artificial hip joint; Z95.820 Peripheral vascular angioplasty status with implants and grafts; Z87.891 Personal history of nicotine dependence; Z79.02 Long term (current) use of antithrombotics/antiplatelets; Z79.899 Other long term (current) drug therapy; Z88.8 Allergy status to other drugs, medicaments and biological substances; I50.9 Heart failure, unspecified; T39.8X5A Adverse effect of other nonopioid analgesics and antipyretics, not elsewhere classified, initial encounter; E83.42 Hypomagnesemia; I27.20 Pulmonary hypertension, unspecified; N18.9 Chronic kidney disease, unspecified

== ENCOUNTER → 2021-11-26 | Outpatient (CLI) | payer MEDICARE, BC | LOC: M SOG 13:03 | PROVIDERS: ATTEND Physician Assistant | DX: S82.832A Other fracture of upper and lower end of left fibula, initial encounter for closed fracture (principal); M17.12 Unilateral primary osteoarthritis, left knee; X58.XXXA Exposure to other specified factors, initial encounter; Y92.9 Unspecified place or not applicable; Y93.9 Activity, unspecified; Y99.9 Unspecified external cause status ==

== ENCOUNTER → 2021-12-16 | Outpatient (REF) | payer MEDICARE, BC ==
[2021-12-16 17:46] LABS: PERCENT SATURATION 24.1 % (13.2-45.0)
== END ==
LOC: M LAB REF 16:58
PROVIDERS: ATTEND Internal Medicine
DX: D64.9 Anemia, unspecified (principal)

== ENCOUNTER 2021-12-30 17:06 | Inpatient (IN) | payer MEDICARE, BC ==
[~2021-12-30] VITALS: Ht 152.4 cm; Wt 73.2 kg
[2021-12-30] MEDS ORDERED: ACETAMINOPHEN TAB 650MG DOSE (2X325MG) PO ONE (17:30)
[2021-12-30] MEDS ORDERED: COMBIVENT RESPIMAT 100-20MCG INHALER 4GM INH ONE (17:40)
[2021-12-30 17:46] LABS: ABG BASE EXCESS 5.4 (-2.0-2.0); ABG HCO3 28.4 MEQ/L (22.0-26.0); ABG O2 SATURATION 88.7 % (95.0-99.0); ABG PARTIAL PRESSURE CO2 35.7 mmHg (35.0-45.0); ABG STANDARD HCO3 29.2 MEQ/L (22.0-26.0); ABG TOTAL CO2 29.5 MEQ/L (23.0-31.0); ABG pH (ARTERIAL) 7.518 UNITS (7.350-7.450)
[2021-12-30 17:49] LABS: ABG PARTIAL PRESSURE O2 49.3 mmHg (75.0-100.0)
[2021-12-30 17:54] LABS: BASO % 0.3 % (0.0-1.0); EOS % 0.3 % (0.0-3.0); HEMATOCRIT 36.3 % (36.0-47.0); HEMOGLOBIN 11.6 g/dl (12.0-15.5); LYMPH # 0.2 10^3/uL (1.5-5.0); MEAN CORPUSCULAR HEMOGLOBIN 32.5 pg (27.0-33.0); MEAN CORPUSCULAR VOLUME 101.7 fl (80.0-96.0); MONO # 0.1 10^3/uL (0.0-0.8); MONO % 0.9 % (2.0-8.0); NEUTROPHILS # 11.3 10^3/uL (1.5-8.5); NEUTROPHILS % 95.9 % (36.0-66.0); PLATELET COUNT, AUTOMATED 232 10^3/uL (150-450); RED BLOOD COUNT 3.57 10^6/uL (4.00-5.40); WHITE BLOOD COUNT 11.8 10^3/uL (4.0-10.0)
[2021-12-30] MEDS ORDERED: FUROSEMIDE 40MG/4ML VIAL (J1940) IV ONE (18:10)
[2021-12-30 18:13] LABS: INR 0.97; PROTHROMBIN TIME 13.3 SECONDS (12.7-14.5)
[2021-12-30 18:18] LABS: ALBUMIN 3.3 GM/DL (3.2-5.2); BILIRUBIN,DIRECT 0.2 MG/DL (0.0-0.2); BILIRUBIN,TOTAL 0.6 MG/DL (0.2-1.0); CALCIUM LEVEL 9.9 MG/DL (8.8-10.2); CK-MB VALUE MASS < 1.0 NG/ML (<3.6); CPK CREATINE PHOSPHOKINASE 21 U/L (26-192); CREATININE FOR GFR 1.31 MG/DL (0.55-1.30); GLOMERULAR FILTRATION RATE 41.5 (>32); MB/CK RELATIVE INDEX 4.76 (< OR =4); POTASSIUM SERUM 3.5 MEQ/L (3.5-5.1); THYROID STIMULATING HORMONE 0.706 uIU/ML (0.358-3.740); TOTAL PROTEIN 6.6 GM/DL (6.4-8.2)
[2021-12-30 18:54] LABS: D-DIMER QUANT > 4000 ng/ml (<500)
[2021-12-30] MEDS ORDERED: methylPREDNISolone 125MG 2ML VIAL As Ordered ONE (18:54)
[2021-12-30] MEDS ORDERED: methylPREDNISolone 125MG 2ML VIAL IV ONE (18:55)
[2021-12-30] MEDS ORDERED: ISOVUE-370 76% 100ML VIAL As Ordered ONE (18:58)
[2021-12-30 19:30] LABS: CK-MB VALUE MASS 1.1 NG/ML (<3.6); MB/CK RELATIVE INDEX 4.07 (< OR =4)
[2021-12-30] MEDS ORDERED: ASPIRIN 81 MG CHEW TABLET PO ONE (19:55)
[2021-12-30 20:03] LABS: PARTIAL THROMBOPLASTIN TIME 32.2 SECONDS (25.9-37.0)
[2021-12-30] MEDS ORDERED: PIPERACILLIN/TAZOBACTAM SOD 4.5 GM in D5W MINI-BAG PLUS 50 ML IV ONE (21:15)
[2021-12-30] MEDS ORDERED: FUROSEMIDE 100MG/10ML VIAL (J1940) IV ONE (21:35)
[2021-12-30] MEDS ORDERED: OMEP-173 PO (23:45)
[2021-12-30] MEDS ORDERED: VITA500T41 PO (23:45)
[2021-12-30] MEDS ORDERED: TORS20TA2 PO (23:45)
[2021-12-30] MEDS ORDERED: ATEN25TA PO (23:45)
[2021-12-30] MEDS ORDERED: RISATAB3 PO (23:45)
[2021-12-30] MEDS ORDERED: ALLO300T2 PO (23:45)
[2021-12-30] MEDS ORDERED: CLOP75TA2 PO (23:45)
[2021-12-30] MEDS ORDERED: LOPE2TAB12 PO (23:45)
[2021-12-30] MEDS ORDERED: VITA100093 PO (23:45)
[2021-12-30] MEDS ORDERED: CALM GUMMIES PO (23:45)
[2021-12-30] MEDS ORDERED: HOME MED LIST COMPLETE! XX SCH (23:45)
[2021-12-30] MEDS ORDERED: ALBU8.5H INH (23:45)
[2021-12-31] VITALS (8 sets, daily range): BP systolic 127–149; BP diastolic 57–82
[2021-12-31] MEDS ORDERED: UNRESOLVED CLARIFICATION ENTRY XX SCH (00:01)
[2021-12-31] MEDS ORDERED: ALBUTEROL 90 MCG/ACT 8GM HFA INHALER INH PRN (02:20)
[2021-12-31] MEDS ORDERED: PIPERACILLIN/TAZOBACTAM SOD 3.375 GM in D5W MINI-BAG PLUS 50 ML IV SCH (04:00)
[2021-12-31 05:45] LABS: HEMATOCRIT 34.3 % (36.0-47.0); HEMOGLOBIN 10.9 g/dl (12.0-15.5); MEAN CORPUSCULAR HEMOGLOBIN 31.9 pg (27.0-33.0); MEAN CORPUSCULAR HGB CONC 31.8 g/dl (32.0-36.5); MEAN CORPUSCULAR VOLUME 100.3 fl (80.0-96.0); PLATELET COUNT, AUTOMATED 208 10^3/uL (150-450); RED BLOOD COUNT 3.42 10^6/uL (4.00-5.40); WHITE BLOOD COUNT 13.5 10^3/uL (4.0-10.0)
[2021-12-31] MEDS ORDERED: HEPARIN SOD (PORCINE) 5000UNITS/ML 1ML VIAL/SYRINGE SC SCH (06:00)
[2021-12-31 06:15] LABS: ALBUMIN 2.8 GM/DL (3.2-5.2); BILIRUBIN,TOTAL 0.5 MG/DL (0.2-1.0); CALCIUM LEVEL 9.7 MG/DL (8.8-10.2); CREATININE FOR GFR 1.59 MG/DL (0.55-1.30); GLOMERULAR FILTRATION RATE 33.2 (>32); MAGNESIUM LEVEL 2.3 MG/DL (1.8-2.4); TOTAL PROTEIN 6.6 GM/DL (6.4-8.2)
[2021-12-31] MEDS: OCUVITE 1 TAB PO SCH (08:10)
[2021-12-31] MEDS: CLOPIDOGREL 75 MG TAB PO SCH (08:10)
[2021-12-31] MEDS: allopurinoL 300 MG TAB PO SCH (08:12)
[2021-12-31] MEDS ORDERED: VITAMIN D 1,000 INTERNATIONAL UNITS TABLET PO SCH (09:00)
[2021-12-31] MEDS ORDERED: atenoloL 25 MG TAB PO SCH (09:00)
[2021-12-31] MEDS ORDERED: LACTOBACILLUS ACIDOPHILUS CAP (BACID) PO SCH (09:00)
[2021-12-31] MEDS ORDERED: CYANOCOBALAMIN 500 MCG TAB PO SCH (09:00)
[2021-12-31 09:12] LABS: CK-MB VALUE MASS 2.6 NG/ML (<3.6); MB/CK RELATIVE INDEX 7.65 (< OR =4)
[2021-12-31] MEDS ORDERED: ONDANSETRON 4MG/2ML VIAL IV PRN (10:30)
[2021-12-31] MEDS ORDERED: LORazepam 2 MG/ML VIAL IV PRN (10:30)
[2021-12-31] MEDS ORDERED: MORPHINE 2 MG/ML 1ML VIAL IV PRN (10:30)
[2021-12-31] MEDS ORDERED: ATROPINE SULFATE 1% OP SOLN 2 ML BTL SL PRN (10:30)
[2021-12-31] MEDS: ASPIRIN 325 MG TAB PO SCH (20:48)
[2021-12-31] MEDS ORDERED: AUGMENTIN 500 MG TAB PO SCH (21:00)
[2021-12-31] MEDS ORDERED: TORSEMIDE 20 MG TAB PO ONE (22:10)
[2021-12-31] MEDS ORDERED: MAGNESIUM OXIDE 400MG TAB (MAG-OX) PO ONE (22:10)
[2021-12-31] MEDS: ACETAMINOPHEN TAB 650MG DOSE (2X325MG) PO PRN (22:23)
[2021-12-31] MEDS: PIPERACILLIN/TAZOBACTAM SOD 3.375 GM in D5W MINI-BAG PLUS 50 ML IV SCH (23:53)
[2022-01-01] MEDS: PIPERACILLIN/TAZOBACTAM SOD 3.375 GM in D5W MINI-BAG PLUS 50 ML IV SCH (05:34)
[2022-01-01 06:00] VITALS: BP_SYST 107
[2022-01-01 08:03] LABS: VENOUS BASE EXCESS 5.3 (-2.0-2.0); VENOUS HCO3 30.8 MEQ/L (23.0-27.0); VENOUS O2 SATURATION 83.3 % (60.0-80.0); VENOUS PARTIAL PRESSURE CO2 49.2 mmHg (38.0-50.0); VENOUS PARTIAL PRESSURE O2 49.7 mmHg (30.0-50.0); VENOUS PH 7.415 UNITS (7.330-7.430); VENOUS STANDARD HCO3 28.9 MEQ/L; VENOUS TOTAL CO2 32.3 MEQ/L (24.0-28.0)
[2022-01-01 08:09] LABS: BASO % 0.2 % (0.0-1.0); EOS # 0.1 10^3/uL (0.0-0.5); EOS % 0.6 % (0.0-3.0); HEMATOCRIT 34.6 % (36.0-47.0); HEMOGLOBIN 11.1 g/dl (12.0-15.5); LYMPH # 0.3 10^3/uL (1.5-5.0); MEAN CORPUSCULAR HEMOGLOBIN 31.9 pg (27.0-33.0); MEAN CORPUSCULAR HGB CONC 32.1 g/dl (32.0-36.5); MEAN CORPUSCULAR VOLUME 99.4 fl (80.0-96.0); MONO # 0.9 10^3/uL (0.0-0.8); MONO % 6.7 % (2.0-8.0); NEUTROPHILS # 11.8 10^3/uL (1.5-8.5); NEUTROPHILS % 89.4 % (36.0-66.0); PLATELET COUNT, AUTOMATED 221 10^3/uL (150-450); RED BLOOD COUNT 3.48 10^6/uL (4.00-5.40); WHITE BLOOD COUNT 13.2 10^3/uL (4.0-10.0)
[2022-01-01] MEDS: OCUVITE 1 TAB PO SCH ×2 (08:28→09:18)
[2022-01-01] MEDS: LACTOBACILLUS ACIDOPHILUS CAP (BACID) PO SCH ×2 (08:28→09:18)
[2022-01-01] MEDS: allopurinoL 300 MG TAB PO SCH ×2 (08:28→09:18)
[2022-01-01] MEDS: CLOPIDOGREL 75 MG TAB PO SCH ×2 (08:29→09:18)
[2022-01-01] MEDS ORDERED: NS 1,000 ML IV SCH (08:35)
[2022-01-01 08:50] LABS: ALBUMIN 2.5 GM/DL (3.2-5.2); BILIRUBIN,TOTAL 0.3 MG/DL (0.2-1.0); CALCIUM LEVEL 9.4 MG/DL (8.8-10.2); CREATININE FOR GFR 1.49 MG/DL (0.55-1.30); GLOMERULAR FILTRATION RATE 35.8 (>32); MAGNESIUM LEVEL 2.3 MG/DL (1.8-2.4); POTASSIUM SERUM 3.4 MEQ/L (3.5-5.1)
[2022-01-01 08:52] VITALS: BP 140/73
[2022-01-01] MEDS: cefTRIAXone SOD 1 GM in D5W MINI-BAG PLUS 50 ML IV SCH (09:19)
[2022-01-01] MEDS: AZITHROMYCIN INJ 500 MG, VIAL MATE ADAPTER 1 EACH in NS 250 ML IV SCH (10:43)
[2022-01-01] MEDS: ENOXAPARIN 30MG/0.3ML SYRINGE (J1650 PER 10MG) SC SCH (10:43)
[2022-01-01] MEDS ORDERED: POTASSIUM CHLORIDE 10MEQ SR TABLET PO ONE (12:00)
[2022-01-01] MEDS ORDERED: FUROSEMIDE 40MG/4ML VIAL (J1940) IV ONE (16:15)
[2022-01-01] MEDS: OMEPRAZOLE 20MG CAP PO SCH (16:30)
[2022-01-01] MEDS ORDERED: ONDANSETRON 4MG/2ML VIAL IV PRN (16:30)
[2022-01-01] MEDS: LOPERAMIDE 2 MG CAPLET PO PRN ×2 (16:31→18:17)
[2022-01-01] MEDS: MAGNESIUM GLUCONATE 500 MG TAB PO SCH (21:42)
[2022-01-01] MEDS: ASPIRIN 325 MG TAB PO SCH (21:42)
[2022-01-02 06:00] VITALS: BP 137/81
[2022-01-02 06:39] LABS: HEMATOCRIT 33.9 % (36.0-47.0); HEMOGLOBIN 10.5 g/dl (12.0-15.5); MEAN CORPUSCULAR HEMOGLOBIN 31.6 pg (27.0-33.0); MEAN CORPUSCULAR VOLUME 102.1 fl (80.0-96.0); PLATELET COUNT, AUTOMATED 208 10^3/uL (150-450); RED BLOOD COUNT 3.32 10^6/uL (4.00-5.40); WHITE BLOOD COUNT 7.1 10^3/uL (4.0-10.0)
[2022-01-02 07:06] LABS: ALBUMIN 2.3 GM/DL (3.2-5.2); BILIRUBIN,TOTAL 0.2 MG/DL (0.2-1.0); CALCIUM LEVEL 9.4 MG/DL (8.8-10.2); CREATININE FOR GFR 1.27 MG/DL (0.55-1.30); POTASSIUM SERUM 3.6 MEQ/L (3.5-5.1); TOTAL PROTEIN 5.9 GM/DL (6.4-8.2)
[2022-01-02] MEDS: CLOPIDOGREL 75 MG TAB PO SCH (08:53)
[2022-01-02] MEDS: OCUVITE 1 TAB PO SCH (08:53)
[2022-01-02] MEDS: OMEPRAZOLE 20MG CAP PO SCH (08:53)
[2022-01-02] MEDS: LACTOBACILLUS ACIDOPHILUS CAP (BACID) PO SCH (08:53)
[2022-01-02] MEDS: allopurinoL 300 MG TAB PO SCH (08:54)
[2022-01-02] MEDS: ENOXAPARIN 30MG/0.3ML SYRINGE (J1650 PER 10MG) SC SCH (08:54)
[2022-01-02] MEDS: cefTRIAXone SOD 1 GM in D5W MINI-BAG PLUS 50 ML IV SCH (08:54)
[2022-01-02] MEDS ORDERED: FUROSEMIDE 40MG/4ML VIAL (J1940) IV SCH (09:00)
[2022-01-02] MEDS: AZITHROMYCIN INJ 500 MG, VIAL MATE ADAPTER 1 EACH in NS 250 ML IV SCH (09:49)
[2022-01-02] MEDS: LOPERAMIDE 2 MG CAPLET PO PRN (12:11)
[2022-01-02] MEDS: ASPIRIN 325 MG TAB PO SCH (19:56)
[2022-01-02] MEDS: LOPERAMIDE 2 MG CAPLET PO SCH (19:57)
[2022-01-02] MEDS: MAGNESIUM GLUCONATE 500 MG TAB PO SCH (19:57)
[2022-01-03 05:40] VITALS: BP 147/71
[2022-01-03 06:32] LABS: HEMATOCRIT 34.2 % (36.0-47.0); HEMOGLOBIN 10.6 g/dl (12.0-15.5); MEAN CORPUSCULAR HEMOGLOBIN 32.3 pg (27.0-33.0); MEAN CORPUSCULAR VOLUME 104.3 fl (80.0-96.0); PLATELET COUNT, AUTOMATED 214 10^3/uL (150-450); RED BLOOD COUNT 3.28 10^6/uL (4.00-5.40); WHITE BLOOD COUNT 7.2 10^3/uL (4.0-10.0)
[2022-01-03 06:53] LABS: ALBUMIN 2.2 GM/DL (3.2-5.2); BILIRUBIN,TOTAL 0.3 MG/DL (0.2-1.0); CALCIUM LEVEL 9.4 MG/DL (8.8-10.2); CREATININE FOR GFR 1.03 MG/DL (0.55-1.30); GLOMERULAR FILTRATION RATE 54.7 (>32); POTASSIUM SERUM 3.3 MEQ/L (3.5-5.1); TOTAL PROTEIN 5.7 GM/DL (6.4-8.2)
[2022-01-03] MEDS ORDERED: POTASSIUM CHLORIDE 10MEQ SR TABLET PO ONE (08:30)
[2022-01-03] MEDS: FUROSEMIDE 40MG/4ML VIAL (J1940) IV SCH ×2 (09:51→16:43)
[2022-01-03] MEDS: OCUVITE 1 TAB PO SCH (09:52)
[2022-01-03] MEDS: allopurinoL 300 MG TAB PO SCH (09:52)
[2022-01-03] MEDS: CLOPIDOGREL 75 MG TAB PO SCH (09:52)
[2022-01-03] MEDS: OMEPRAZOLE 20MG CAP PO SCH (09:52)
[2022-01-03] MEDS: ENOXAPARIN 30MG/0.3ML SYRINGE (J1650 PER 10MG) SC SCH (09:52)
[2022-01-03] MEDS: LACTOBACILLUS ACIDOPHILUS CAP (BACID) PO SCH (09:52)
[2022-01-03] MEDS: cefTRIAXone SOD 1 GM in D5W MINI-BAG PLUS 50 ML IV SCH (09:52)
[2022-01-03] MEDS: AZITHROMYCIN INJ 500 MG, VIAL MATE ADAPTER 1 EACH in NS 250 ML IV SCH (10:47)
[2022-01-03] MEDS: ASPIRIN 325 MG TAB PO SCH (20:04)
[2022-01-03] MEDS: LOPERAMIDE 2 MG CAPLET PO SCH (20:05)
[2022-01-03] MEDS: MAGNESIUM GLUCONATE 500 MG TAB PO SCH (20:06)
[2022-01-03] MEDS: ACETAMINOPHEN TAB 650MG DOSE (2X325MG) PO PRN (20:06)
[2022-01-04 05:48] VITALS: BP 113/63
[2022-01-04 08:00] VITALS: BP 119/59
[2022-01-04] MEDS: FUROSEMIDE 40MG/4ML VIAL (J1940) IV SCH ×3 (09:07→21:33)
[2022-01-04] MEDS: cefTRIAXone SOD 1 GM in D5W MINI-BAG PLUS 50 ML IV SCH (09:07)
[2022-01-04] MEDS: ENOXAPARIN 30MG/0.3ML SYRINGE (J1650 PER 10MG) SC SCH (09:07)
[2022-01-04 09:55] LABS: HEMATOCRIT 34.7 % (36.0-47.0); HEMOGLOBIN 11.3 g/dl (12.0-15.5); MEAN CORPUSCULAR HEMOGLOBIN 32.9 pg (27.0-33.0); MEAN CORPUSCULAR HGB CONC 32.6 g/dl (32.0-36.5); MEAN CORPUSCULAR VOLUME 101.2 fl (80.0-96.0); PLATELET COUNT, AUTOMATED 220 10^3/uL (150-450); RED BLOOD COUNT 3.43 10^6/uL (4.00-5.40); WHITE BLOOD COUNT 7.6 10^3/uL (4.0-10.0)
[2022-01-04 10:26] LABS: CK-MB VALUE MASS < 1.0 NG/ML (<3.6); CPK CREATINE PHOSPHOKINASE 16 U/L (26-192); MB/CK RELATIVE INDEX 6.25 (< OR =4)
[2022-01-04] MEDS: AZITHROMYCIN INJ 500 MG, VIAL MATE ADAPTER 1 EACH in NS 250 ML IV SCH (10:33)
[2022-01-04 10:34] LABS: ALBUMIN 2.5 GM/DL (3.2-5.2); BILIRUBIN,TOTAL 0.5 MG/DL (0.2-1.0); CALCIUM LEVEL 9.5 MG/DL (8.8-10.2); CREATININE FOR GFR 1.06 MG/DL (0.55-1.30); POTASSIUM SERUM 4.8 MEQ/L (3.5-5.1); TOTAL PROTEIN 6.1 GM/DL (6.4-8.2)
[2022-01-04] MEDS: CLOPIDOGREL 75 MG TAB PO SCH (11:13)
[2022-01-04] MEDS: OCUVITE 1 TAB PO SCH (11:13)
[2022-01-04] MEDS: LACTOBACILLUS ACIDOPHILUS CAP (BACID) PO SCH (11:13)
[2022-01-04] MEDS: OMEPRAZOLE 20MG CAP PO SCH (11:14)
[2022-01-04] MEDS: allopurinoL 300 MG TAB PO SCH (11:14)
[2022-01-04 14:10] VITALS: BP 157/60
[2022-01-04] MEDS: MAGNESIUM GLUCONATE 500 MG TAB PO SCH (21:32)
[2022-01-04] MEDS: ASPIRIN 325 MG TAB PO SCH (21:32)
[2022-01-04] MEDS: LOPERAMIDE 2 MG CAPLET PO SCH (21:32)
[2022-01-04] MEDS: ACETAMINOPHEN TAB 650MG DOSE (2X325MG) PO PRN (21:32)
[2022-01-05 06:00] VITALS: BP 137/64
[2022-01-05 07:03] LABS: HEMATOCRIT 33.7 % (36.0-47.0); HEMOGLOBIN 10.9 g/dl (12.0-15.5); MEAN CORPUSCULAR HGB CONC 32.3 g/dl (32.0-36.5); MEAN CORPUSCULAR VOLUME 98.8 fl (80.0-96.0); PLATELET COUNT, AUTOMATED 152 10^3/uL (150-450); RED BLOOD COUNT 3.41 10^6/uL (4.00-5.40); WHITE BLOOD COUNT 6.5 10^3/uL (4.0-10.0)
[2022-01-05 07:31] LABS: ALBUMIN 2.6 GM/DL (3.2-5.2); BILIRUBIN,TOTAL 0.4 MG/DL (0.2-1.0); CREATININE FOR GFR 1.04 MG/DL (0.55-1.30); GLOMERULAR FILTRATION RATE 54.1 (>32); POTASSIUM SERUM 4.2 MEQ/L (3.5-5.1); TOTAL PROTEIN 5.5 GM/DL (6.4-8.2)
[2022-01-05] MEDS ORDERED: LEVO500T4 PO (07:44)
[2022-01-05] MEDS: ENOXAPARIN 30MG/0.3ML SYRINGE (J1650 PER 10MG) SC SCH ×2 (09:00→09:18)
[2022-01-05] MEDS: FUROSEMIDE 40MG/4ML VIAL (J1940) IV SCH ×2 (09:00→09:17)
[2022-01-05] MEDS: cefTRIAXone SOD 1 GM in D5W MINI-BAG PLUS 50 ML IV SCH ×2 (09:00→09:18)
[2022-01-05] MEDS: LACTOBACILLUS ACIDOPHILUS CAP (BACID) PO SCH (09:18)
[2022-01-05] MEDS: CLOPIDOGREL 75 MG TAB PO SCH (09:18)
[2022-01-05] MEDS: OCUVITE 1 TAB PO SCH (09:19)
[2022-01-05] MEDS: OMEPRAZOLE 20MG CAP PO SCH (09:19)
[2022-01-05] MEDS: allopurinoL 300 MG TAB PO SCH (09:19)
[2022-01-05] MEDS ORDERED: TORSEMIDE 20 MG TAB PO ONE (09:40)
[2022-01-05] MEDS: AZITHROMYCIN INJ 500 MG, VIAL MATE ADAPTER 1 EACH in NS 250 ML IV SCH (09:55)
== END 2022-01-05 11:44 | disposition home health service (06) | DRG 871 ==
LOC: M ED 17:06 → M ED INP 22:40 → ENRESERV 23:00 → M ICU 12-31 00:50 → M MS5PR 12-31 16:10
PROVIDERS: ADMIT Family Medicine; ATTEND Internal Medicine
DX: A41.9 Sepsis, unspecified organism (principal); J96.01 Acute respiratory failure with hypoxia; J18.9 Pneumonia, unspecified organism; N17.9 Acute kidney failure, unspecified; I24.8 Other forms of acute ischemic heart disease; E87.3 Alkalosis; N93.9 Abnormal uterine and vaginal bleeding, unspecified; I50.9 Heart failure, unspecified; I73.9 Peripheral vascular disease, unspecified; J45.20 Mild intermittent asthma, uncomplicated; M10.9 Gout, unspecified; K21.9 Gastro-esophageal reflux disease without esophagitis; Z66 Do not resuscitate; Z20.822 Contact with and (suspected) exposure to COVID-19; Z79.899 Other long term (current) drug therapy; Z88.8 Allergy status to other drugs, medicaments and biological substances; E78.5 Hyperlipidemia, unspecified; I11.0 Hypertensive heart disease with heart failure; E55.9 Vitamin D deficiency, unspecified; L40.9 Psoriasis, unspecified; Z95.828 Presence of other vascular implants and grafts; Z90.49 Acquired absence of other specified parts of digestive tract; Z90.79 Acquired absence of other genital organ(s); H66.92 Otitis media, unspecified, left ear; B96.20 Unspecified Escherichia coli [E. coli] as the cause of diseases classified elsewhere; E87.6 Hypokalemia; R00.1 Bradycardia, unspecified; K59.09 Other constipation

== ENCOUNTER → 2022-01-10 | Outpatient (REF) | payer MEDICARE, BC ==
[~2022-01-10] MED LIST changes: +CALM GUMMIES PO; +LEVO500T4 PO; +LOPE2TAB12 PO; +RISATAB3 PO; +VITA100093 PO; +VITA500T41 PO
== END ==
LOC: M LAB REF 15:23
PROVIDERS: ATTEND Internal Medicine
DX: G89.29 Other chronic pain (principal)

== ENCOUNTER → 2022-02-21 | Outpatient (REF) | payer MEDICARE, BC | LOC: M LAB REF 16:19 | PROVIDERS: ATTEND Internal Medicine | DX: I13.0 Hypertensive heart and chronic kidney disease with heart failure and stage 1 through stage 4 chronic kidney disease, or unspecified chronic kidney disease (principal); N18.9 Chronic kidney disease, unspecified; I50.9 Heart failure, unspecified ==

== ENCOUNTER → 2022-05-28 | Outpatient (REF) | payer MEDICARE, BC ==
[~2022-05-28] MED LIST changes: +LEVO1TAB39 PO; -LEVO500T4 PO
== END ==
LOC: M LAB REF 16:12
PROVIDERS: ATTEND Internal Medicine
DX: M25.18 Fistula, other specified site (principal)

== ENCOUNTER → 2022-07-29 | Outpatient (REF) | payer MEDICARE, BC | LOC: M LAB REF 16:27 | PROVIDERS: ATTEND Internal Medicine | DX: N39.0 Urinary tract infection, site not specified (principal) ==

== ENCOUNTER → 2022-11-04 | Outpatient (CLI) | payer MEDICARE, BC | LOC: M WUC 13:31 | PROVIDERS: ATTEND Internal Medicine | DX: R06.02 Shortness of breath (principal) ==

== ENCOUNTER 2023-11-24 14:43 | Inpatient (IN) | payer MEDICARE, BC ==
[~2023-11-24] VITALS: Ht 157.5 cm; Wt 75.3 kg
[~2023-11-24 14:43] MED LIST changes: -OLME20TA2 PO; +OLME20TA50 PO; -ROSU20TA5 PO; +ROSU20TA61 PO
[2023-11-24 16:08] LABS: BASO % 0.5 % (0.0-1.0); EOS # 0.1 10^3/uL (0.0-0.5); HEMATOCRIT 37.9 % (36.0-47.0); HEMOGLOBIN 11.9 g/dl (12.0-15.5); LYMPH # 0.9 10^3/uL (1.5-5.0); MEAN CORPUSCULAR HEMOGLOBIN 31.2 pg (27.0-33.0); MEAN CORPUSCULAR HGB CONC 31.4 g/dl (32.0-36.5); MEAN CORPUSCULAR VOLUME 99.5 fl (80.0-96.0); MONO # 0.7 10^3/uL (0.0-0.8); MONO % 7.5 % (2.0-8.0); NEUTROPHILS # 7.1 10^3/uL (1.5-8.5); NEUTROPHILS % 80.3 % (36.0-66.0); PLATELET COUNT, AUTOMATED 259 10^3/uL (150-450); RED BLOOD COUNT 3.81 10^6/uL (4.00-5.40); WHITE BLOOD COUNT 8.9 10^3/uL (4.0-10.0)
[2023-11-24] MEDS: ONDANSETRON 4MG 2ML VIAL IV ONE (16:22)
[2023-11-24] MEDS: MORPHINE 4 MG/ML 1ML VIAL IV ONE (16:23)
[2023-11-24 16:31] LABS: LIPASE 19 U/L (12-53)
[2023-11-24 16:34] LABS: ALBUMIN 2.8 G/DL (3.2-5.2); ALKALINE PHOSPHATASE 116 U/L (46-116); ALT/SGPT < 9 U/L (7.0-40); AST/SGOT 12 U/L (<34); BILIRUBIN,DIRECT 0.1 MG/DL (<0.4); BILIRUBIN,TOTAL 0.4 MG/DL (0.3-1.2); BLOOD UREA NITROGEN 30 MG/DL (9-23); CALCIUM LEVEL 9.1 MG/DL (8.3-10.6); CARBON DIOXIDE LEVEL 25 MMOL/L (20-31); CHLORIDE LEVEL 107 MMOL/L (98-107); CREATININE FOR GFR 1.61 MG/DL (0.55-1.30); GLOMERULAR FILTRATION RATE 32.5 (>32); GLUCOSE, FASTING 91 MG/DL (74-106); POTASSIUM SERUM 4.8 MMOL/L (3.5-5.1); SODIUM LEVEL 135 MMOL/L (136-145); TOTAL PROTEIN 5.9 G/DL (5.7-8.2)
[2023-11-24] MEDS: cefTRIAXone SOD 1 GM in D5W MINI-BAG PLUS 50 ML IV ONE (17:08)
[2023-11-24] MEDS: GASTROGRAFIN SOLUTION 30ML PO SCH (17:13)
[2023-11-24] MEDS: NS 1,000 ML IV SCH (17:19)
[2023-11-24] MEDS ORDERED: ISOVUE-370 76% 100ML VIAL As Ordered ONE (19:05)
[2023-11-24] MEDS: PIPERACILLIN/TAZOBACTAM SOD 4.5 GM in D5W MINI-BAG PLUS 50 ML IV ONE (20:53)
[2023-11-24] MEDS ORDERED: KETOROLAC 30 MG/ML 1ML VIAL IV PRN (21:40)
[2023-11-24] MEDS ORDERED: LEVO1TAB40 PO (21:43)
[2023-11-24] MEDS ORDERED: OLME20TA50 PO (21:43)
[2023-11-24] MEDS ORDERED: MAGN400T2 PO (21:43)
[2023-11-24] MEDS ORDERED: OCUVTAB4 PO (21:43)
[2023-11-24] MEDS ORDERED: FLON1SPR (21:43)
[2023-11-24] MEDS ORDERED: HOME MED LIST COMPLETE! XX SCH (21:45)
[2023-11-24 22:44] LABS: RSV AMPLIFICATION NEGATIVE (NEGATIVE)
[2023-11-25 00:19] LABS: INR 1.13; PARTIAL THROMBOPLASTIN TIME 33.4 SECONDS (24.8-34.2); PROTHROMBIN TIME 14.2 SECONDS (12.5-14.5)
[2023-11-25] MEDS: NS 1,000 ML IV SCH (00:27)
[2023-11-25] MEDS: KETOROLAC 30 MG/ML 1ML VIAL IV PRN (00:31)
[2023-11-25] MEDS ORDERED: TORSEMIDE 20 MG TAB PO PRN (01:30)
[2023-11-25] MEDS ORDERED: FLUTICASONE PROP 0.05% NASAL SPRAY 16 GM (FLONASE) PRN (01:30)
[2023-11-25 02:38] VITALS: BP 158/54; TEMP 97.5; O2SAT 91
[2023-11-25] MEDS ORDERED: PILL CUTTER 1 EACH XX PRN (03:15)
[2023-11-25] MEDS: PIPERACILLIN/TAZOBACTAM SOD 3.375 GM in D5W MINI-BAG PLUS 50 ML IV SCH (03:18)
[2023-11-25] MEDS: LevoFLOXacin 750 MG TABLET PO SCH (06:00)
[2023-11-25] MEDS: ONDANSETRON 4MG 2ML VIAL IV PRN (06:37)
[2023-11-25] MEDS: LevoFLOXacin IV 750 MG in IV 1 EA IV STA (06:37)
[2023-11-25 06:42] VITALS: BP 140/47; TEMP 97.3; O2SAT 91
[2023-11-25 07:01] LABS: HEMATOCRIT 31.5 % (36.0-47.0); MEAN CORPUSCULAR HEMOGLOBIN 31.3 pg (27.0-33.0); MEAN CORPUSCULAR HGB CONC 31.1 g/dl (32.0-36.5); MEAN CORPUSCULAR VOLUME 100.6 fl (80.0-96.0); PLATELET COUNT, AUTOMATED 228 10^3/uL (150-450); RED BLOOD COUNT 3.13 10^6/uL (4.00-5.40); WHITE BLOOD COUNT 6.2 10^3/uL (4.0-10.0)
[2023-11-25 07:03] LABS: HEMOGLOBIN 9.8 g/dl (12.0-15.5)
[2023-11-25] MEDS: CLOPIDOGREL 75 MG TAB PO SCH (08:34)
[2023-11-25] MEDS: LIDOCAINE 5% (LIDODERM) PATCH TOP SCH (08:41)
[2023-11-25] MEDS: OMEPRAZOLE 20MG CAP PO SCH (08:41)
[2023-11-25] MEDS: LACTOBACILLUS ACIDOPHILUS CAP (BACID) PO SCH (08:41)
[2023-11-25] MEDS: CYANOCOBALAMIN 500 MCG TAB PO SCH (08:42)
[2023-11-25] MEDS: allopurinoL 300 MG TAB PO SCH (08:42)
[2023-11-25] MEDS: VITAMIN D 1,000 INTERNATIONAL UNITS TABLET PO SCH (08:42)
[2023-11-25] MEDS: MAGNESIUM OXIDE 400MG TAB (MAG-OX) PO SCH (08:42)
[2023-11-25] MEDS: LOPERAMIDE 2 MG CAPLET PO SCH (08:47)
[2023-11-25] MEDS: DOCUSATE SOD LIQ 100MG/10ML UDC PO SCH (08:47)
[2023-11-25] MEDS: SPIRONOLACTONE 12.5MG PER 1/2 TABLET PO SCH (09:03)
[2023-11-25 12:00] LABS: C REACTIVE PROTEIN QUANTITATIV 6.1 MG/DL (<1.0)
[2023-11-25 12:17] LABS: ALBUMIN 2.1 G/DL (3.2-5.2); BILIRUBIN,TOTAL 0.4 MG/DL (0.3-1.2); CALCIUM LEVEL 7.7 MG/DL (8.3-10.6); CREATININE FOR GFR 1.65 MG/DL (0.55-1.30); GLOMERULAR FILTRATION RATE 31.6 (>32); MAGNESIUM LEVEL 1.9 MG/DL (1.8-2.4); POTASSIUM SERUM 4.9 MMOL/L (3.5-5.1); TOTAL PROTEIN 4.7 G/DL (5.7-8.2)
[2023-11-25 14:00] VITALS: BP 131/48; TEMP 97.6; O2SAT 18
[2023-11-25] MEDS: MAGNESIUM CITRATE 300ML BTL PO ONE (15:27)
[2023-11-25] MEDS: BISACODYL 5MG TAB PO ONE (15:27)
[2023-11-25 20:52] VITALS: BP 178/65; TEMP 98.8; O2SAT 96
[2023-11-25] MEDS: OLMESARTAN MEDOXOMIL 20 MG TAB (BENICAR) PO SCH (20:58)
[2023-11-26 01:34] LABS: BASO % 0.3 % (0.0-1.0); EOS # 0.3 10^3/uL (0.0-0.5); EOS % 3.4 % (0.0-3.0); HEMATOCRIT 33.8 % (36.0-47.0); HEMOGLOBIN 10.5 g/dl (12.0-15.5); LYMPH # 0.6 10^3/uL (1.5-5.0); LYMPH % 6.2 % (24.0-44.0); MEAN CORPUSCULAR HEMOGLOBIN 31.1 pg (27.0-33.0); MEAN CORPUSCULAR HGB CONC 31.1 g/dl (32.0-36.5); MONO # 0.4 10^3/uL (0.0-0.8); MONO % 4.8 % (2.0-8.0); NEUTROPHILS # 7.6 10^3/uL (1.5-8.5); NEUTROPHILS % 84.5 % (36.0-66.0); PLATELET COUNT, AUTOMATED 247 10^3/uL (150-450); RED BLOOD COUNT 3.38 10^6/uL (4.00-5.40)
[2023-11-26] MEDS: ACETAMINOPHEN *IV* 1,000 MG in IV 1 EA IV ONE (02:01)
[2023-11-26 02:03] LABS: BILIRUBIN,TOTAL 0.3 MG/DL (0.3-1.2); CALCIUM LEVEL 8.5 MG/DL (8.3-10.6); CREATININE FOR GFR 1.73 MG/DL (0.55-1.30); GLOMERULAR FILTRATION RATE 29.9 (>32); MAGNESIUM LEVEL 2.4 MG/DL (1.8-2.4); POTASSIUM SERUM 5.3 MMOL/L (3.5-5.1); TOTAL PROTEIN 4.8 G/DL (5.7-8.2)
[2023-11-26 05:20] VITALS: BP 143/51; TEMP 97.9; O2SAT 90
[2023-11-26] MEDS ORDERED: AMOXICILLIN 875 MG TAB PO SCH (11:55)
[2023-11-26] MEDS: PATIROMER SORBITEX CALCIUM 8.4 GM POWDER PACKET (VELTASSA) PO ONE (12:34)
[2023-11-26] MEDS: CALCIUM GLUCONATE 1,000 MG in D5W MINI-BAG PLUS 100 ML IV ONE (12:35)
[2023-11-26] MEDS: AUGMENTIN 500MG TAB PO SCH (12:46)
[2023-11-26 14:00] VITALS: BP 138/53; TEMP 98.4; O2SAT 93
[2023-11-26] MEDS: SODIUM BICARBONATE 150 MEQ in STERILE WATER LITER BAG 1,000 ML IV SCH (15:49)
[2023-11-26] MEDS: MAGNESIUM CITRATE 300ML BTL PO SCH (18:10)
[2023-11-26 19:03] LABS: ALBUMIN 2.1 G/DL (3.2-5.2); CREATININE FOR GFR 2.01 MG/DL (0.55-1.30); GLOMERULAR FILTRATION RATE 25.2 (>32); MAGNESIUM LEVEL 3.1 MG/DL (1.8-2.4); POTASSIUM SERUM 5.3 MMOL/L (3.5-5.1)
[2023-11-26 20:00] VITALS: BP 169/58; TEMP 98.1; O2SAT 92
[2023-11-26] MEDS: FLEET ENEMA PR SCH (20:34)
[2023-11-26] MEDS: METOCLOPRAMIDE INJ 10MG/2ML VIAL IV ONE (22:07)
[2023-11-26] MEDS: amLODIPine 5 MG TAB PO SCH (22:07)
[2023-11-27 04:40] VITALS: BP 153/56; TEMP 98.1; O2SAT 76; O2SAT 84
[2023-11-27 04:45] VITALS: O2SAT 93
[2023-11-27 06:09] LABS: BASO % 0.3 % (0.0-1.0); EOS # 0.3 10^3/uL (0.0-0.5); EOS % 2.3 % (0.0-3.0); HEMATOCRIT 31.6 % (36.0-47.0); LYMPH # 0.4 10^3/uL (1.5-5.0); LYMPH % 3.6 % (24.0-44.0); MEAN CORPUSCULAR HEMOGLOBIN 31.1 pg (27.0-33.0); MEAN CORPUSCULAR HGB CONC 31.6 g/dl (32.0-36.5); MEAN CORPUSCULAR VOLUME 98.1 fl (80.0-96.0); MONO # 0.5 10^3/uL (0.0-0.8); MONO % 4.1 % (2.0-8.0); NEUTROPHILS # 10.4 10^3/uL (1.5-8.5); NEUTROPHILS % 88.9 % (36.0-66.0); PLATELET COUNT, AUTOMATED 254 10^3/uL (150-450); RED BLOOD COUNT 3.22 10^6/uL (4.00-5.40); WHITE BLOOD COUNT 11.7 10^3/uL (4.0-10.0)
[2023-11-27 06:42] LABS: CALCIUM LEVEL 8.2 MG/DL (8.3-10.6); CREATININE FOR GFR 2.12 MG/DL (0.55-1.30); GLOMERULAR FILTRATION RATE 23.7 (>32); POTASSIUM SERUM 4.8 MMOL/L (3.5-5.1)
[2023-11-27 08:18] VITALS: BP 98/78; TEMP 97.9; O2SAT 96
[2023-11-27] MEDS: DOCUSATE SODIUM 100MG CAPSULE PO SCH (09:00)
[2023-11-27] MEDS ORDERED: GASTROGRAFIN SOLUTION 30ML As Ordered ONE (09:35)
[2023-11-27 14:00] VITALS: BP 163/54; TEMP 97.7; O2SAT 93
[2023-11-27 15:08] LABS: Chitobioside Carbohydrat (ACCA 6 units (0-90); Laminaribioside Carbohyd (ALCA 13 units (0-60); Mannobioside Carbohydrat (AMCA 19 units (0-100); Saccharomyces cerevisiae IgG A 22 units (0-50)
[2023-11-27] MEDS: FUROSEMIDE 100MG/10ML VIAL IV ONE (16:11)
[2023-11-27 18:52] VITALS: O2SAT 93
[2023-11-27 22:00] VITALS: BP 165/55; TEMP 97.7; O2SAT 93
[2023-11-28] VITALS (9 sets, daily range): BP systolic 137–157; BP diastolic 47–72; TEMP 97.9–98.2; O2SAT 88–98
[2023-11-28 06:08] LABS: HEMATOCRIT 31.6 % (36.0-47.0); HEMOGLOBIN 9.8 g/dl (12.0-15.5); MEAN CORPUSCULAR HEMOGLOBIN 30.8 pg (27.0-33.0); MEAN CORPUSCULAR VOLUME 99.4 fl (80.0-96.0); PLATELET COUNT, AUTOMATED 236 10^3/uL (150-450); RED BLOOD COUNT 3.18 10^6/uL (4.00-5.40); WHITE BLOOD COUNT 9.1 10^3/uL (4.0-10.0)
[2023-11-28 06:09] LABS: LYMPH % 7.1 % (24.0-44.0); MONO % 6.6 % (2.0-8.0); NEUTROPHILS % 79.1 % (36.0-66.0)
[2023-11-28 06:10] LABS: BASO % 0.3 % (0.0-1.0); EOS # 0.5 10^3/uL (0.0-0.5); LYMPH # 0.6 10^3/uL (1.5-5.0); MONO # 0.6 10^3/uL (0.0-0.8); NEUTROPHILS # 7.2 10^3/uL (1.5-8.5)
[2023-11-28 06:24] LABS: ALBUMIN 1.8 G/DL (3.2-5.2); BILIRUBIN,DIRECT 0.2 MG/DL (<0.4); BILIRUBIN,TOTAL 0.4 MG/DL (0.3-1.2); TOTAL PROTEIN 4.7 G/DL (5.7-8.2)
[2023-11-28 06:25] LABS: CALCIUM LEVEL 8.2 MG/DL (8.3-10.6); CREATININE FOR GFR 2.4 MG/DL (0.55-1.30); GLOMERULAR FILTRATION RATE 20.5 (>32); POTASSIUM SERUM 4.1 MMOL/L (3.5-5.1)
[2023-11-28] MEDS ORDERED: propofoL 200 MG/20 ML VIAL As Ordered ONE (08:37)
[2023-11-28] MEDS: amLODIPine 5 MG TAB PO SCH (09:00)
[2023-11-28] MEDS ORDERED: ONDANSETRON 4MG 2ML VIAL IV PRN (09:15)
[2023-11-28] MEDS ORDERED: METOCLOPRAMIDE INJ 10MG/2ML VIAL IV PRN (09:15)
[2023-11-28] MEDS: LR 1,000 ML IV SCH (09:15)
[2023-11-28] MEDS ORDERED: fentaNYL 100 MCG/2 ML INJECTION IV PRN (09:15)
[2023-11-28] MEDS: oxyCODONE 5MG TAB PO PRN (09:35)
[2023-11-28] MEDS: PIPERACILLIN/TAZOBACTAM SOD 2.25 GM in D5W MINI-BAG PLUS 50 ML IV SCH (09:55)
[2023-11-28 12:34] LABS: MAGNESIUM LEVEL 2.3 MG/DL (1.8-2.4)
[2023-11-29 02:00] VITALS: BP 128/54; TEMP 97.7; O2SAT 92
[2023-11-29 06:00] VITALS: BP 153/55; TEMP 97.9; O2SAT 91
[2023-11-29 06:21] LABS: HEMOGLOBIN 9.3 g/dl (12.0-15.5); RED BLOOD COUNT 3.09 10^6/uL (4.00-5.40)
[2023-11-29 06:22] LABS: BASO % 0.3 % (0.0-1.0); EOS # 0.6 10^3/uL (0.0-0.5); EOS % 6.6 % (0.0-3.0); LYMPH # 0.7 10^3/uL (1.5-5.0); LYMPH % 7.9 % (24.0-44.0); MEAN CORPUSCULAR HEMOGLOBIN 30.1 pg (27.0-33.0); MEAN CORPUSCULAR VOLUME 100.3 fl (80.0-96.0); MONO # 0.7 10^3/uL (0.0-0.8); MONO % 7.7 % (2.0-8.0); NEUTROPHILS # 6.9 10^3/uL (1.5-8.5); NEUTROPHILS % 76.7 % (36.0-66.0); PLATELET COUNT, AUTOMATED 255 10^3/uL (150-450)
[2023-11-29 06:46] LABS: CALCIUM LEVEL 8.4 MG/DL (8.3-10.6); CREATININE FOR GFR 2.61 MG/DL (0.55-1.30); GLOMERULAR FILTRATION RATE 18.6 (>32); MAGNESIUM LEVEL 2.1 MG/DL (1.8-2.4); POTASSIUM SERUM 4.5 MMOL/L (3.5-5.1)
[2023-11-29 14:00] VITALS: BP 164/50; TEMP 97.7; O2SAT 94
[2023-11-29] MEDS: PIPERACILLIN/TAZOBACTAM SOD 2.25 GM in D5W MINI-BAG PLUS 50 ML IV SCH (16:16)
[2023-11-29 20:00] VITALS: BP 114/57; TEMP 98.6; O2SAT 92
[2023-11-29] MEDS: ACETAMINOPHEN 650MG ER TAB (TYLENOL ARTHRITIS) PO PRN (23:58)
[2023-11-30 06:00] VITALS: BP 109/53; TEMP 98.4; O2SAT 93
[2023-11-30 06:18] LABS: BASO % 0.5 % (0.0-1.0); EOS % 7.8 % (0.0-3.0); HEMATOCRIT 31.1 % (36.0-47.0); HEMOGLOBIN 9.6 g/dl (12.0-15.5); LYMPH % 13.5 % (24.0-44.0); MEAN CORPUSCULAR HEMOGLOBIN 30.7 pg (27.0-33.0); MEAN CORPUSCULAR HGB CONC 30.9 g/dl (32.0-36.5); MEAN CORPUSCULAR VOLUME 99.4 fl (80.0-96.0); MONO % 8.7 % (2.0-8.0); NEUTROPHILS % 68.4 % (36.0-66.0); PLATELET COUNT, AUTOMATED 237 10^3/uL (150-450); RED BLOOD COUNT 3.13 10^6/uL (4.00-5.40); WHITE BLOOD COUNT 7.9 10^3/uL (4.0-10.0)
[2023-11-30 06:19] LABS: EOS # 0.6 10^3/uL (0.0-0.5); LYMPH # 1.1 10^3/uL (1.5-5.0); MONO # 0.7 10^3/uL (0.0-0.8); NEUTROPHILS # 5.4 10^3/uL (1.5-8.5)
[2023-11-30 06:29] LABS: CALCIUM LEVEL 8.5 MG/DL (8.3-10.6); CREATININE FOR GFR 2.43 MG/DL (0.55-1.30); GLOMERULAR FILTRATION RATE 20.2 (>32); POTASSIUM SERUM 4.9 MMOL/L (3.5-5.1)
[2023-11-30] MEDS: MORPHINE 2 MG/ML 1ML VIAL IV PRN (08:56)
[2023-11-30 09:00] VITALS: O2SAT 93
[2023-11-30] MEDS: allopurinoL 100 MG TAB PO SCH (09:01)
[2023-11-30 09:15] VITALS: O2SAT 92
[2023-11-30 11:40] VITALS: O2SAT 89
[2023-11-30 14:00] VITALS: BP 127/51; TEMP 97.3; O2SAT 94
[2023-11-30 20:20] VITALS: BP 129/62; TEMP 97.9; O2SAT 94
[2023-12-01 04:40] VITALS: BP 121/54; TEMP 98.1; O2SAT 94
[2023-12-01 06:04] LABS: BASO # 0.1 10^3/uL (0.0-0.2); BASO % 0.6 % (0.0-1.0); EOS # 0.6 10^3/uL (0.0-0.5); EOS % 7.1 % (0.0-3.0); HEMATOCRIT 31.2 % (36.0-47.0); HEMOGLOBIN 9.8 g/dl (12.0-15.5); LYMPH # 1.2 10^3/uL (1.5-5.0); LYMPH % 15.1 % (24.0-44.0); MEAN CORPUSCULAR HEMOGLOBIN 31.2 pg (27.0-33.0); MEAN CORPUSCULAR HGB CONC 31.4 g/dl (32.0-36.5); MEAN CORPUSCULAR VOLUME 99.4 fl (80.0-96.0); MONO # 0.7 10^3/uL (0.0-0.8); MONO % 8.5 % (2.0-8.0); NEUTROPHILS # 5.2 10^3/uL (1.5-8.5); NEUTROPHILS % 66.9 % (36.0-66.0); PLATELET COUNT, AUTOMATED 247 10^3/uL (150-450); RED BLOOD COUNT 3.14 10^6/uL (4.00-5.40); WHITE BLOOD COUNT 7.8 10^3/uL (4.0-10.0)
[2023-12-01 06:36] LABS: CALCIUM LEVEL 8.7 MG/DL (8.3-10.6); CREATININE FOR GFR 2.25 MG/DL (0.55-1.30); GLOMERULAR FILTRATION RATE 22.1 (>32); POTASSIUM SERUM 4.7 MMOL/L (3.5-5.1)
[2023-12-01] MEDS: BISACODYL 5MG TAB PO SCH (10:03)
[2023-12-01] MEDS: FLEET ENEMA PR SCH (10:03)
[2023-12-01 14:00] VITALS: BP 127/68; TEMP 97.9; O2SAT 94
[2023-12-01 20:30] VITALS: BP 111/51; TEMP 98.2; O2SAT 91
[2023-12-02 04:50] VITALS: BP 158/68; TEMP 97.9; O2SAT 90
[2023-12-02 06:51] LABS: BASO % 0.5 % (0.0-1.0); EOS # 0.5 10^3/uL (0.0-0.5); EOS % 5.9 % (0.0-3.0); HEMATOCRIT 32.4 % (36.0-47.0); HEMOGLOBIN 10.2 g/dl (12.0-15.5); MEAN CORPUSCULAR HEMOGLOBIN 30.8 pg (27.0-33.0); MEAN CORPUSCULAR HGB CONC 31.5 g/dl (32.0-36.5); MEAN CORPUSCULAR VOLUME 97.9 fl (80.0-96.0); MONO # 0.5 10^3/uL (0.0-0.8); MONO % 6.3 % (2.0-8.0); NEUTROPHILS # 5.6 10^3/uL (1.5-8.5); NEUTROPHILS % 72.6 % (36.0-66.0); PLATELET COUNT, AUTOMATED 239 10^3/uL (150-450); RED BLOOD COUNT 3.31 10^6/uL (4.00-5.40); WHITE BLOOD COUNT 7.8 10^3/uL (4.0-10.0)
[2023-12-02 07:31] LABS: C REACTIVE PROTEIN QUANTITATIV 2.4 MG/DL (<1.0)
[2023-12-02 07:32] LABS: CALCIUM LEVEL 8.4 MG/DL (8.3-10.6); CREATININE FOR GFR 1.95 MG/DL (0.55-1.30); GLOMERULAR FILTRATION RATE 26.1 (>32); POTASSIUM SERUM 4.8 MMOL/L (3.5-5.1)
[2023-12-02 14:01] VITALS: BP 158/60; TEMP 98.1; O2SAT 92
[2023-12-02] MEDS: MAGNESIUM CITRATE 300ML BTL PO ONE (16:51)
[2023-12-02 20:00] VITALS: BP 142/58; TEMP 98.1; O2SAT 92
[2023-12-03] VITALS (8 sets, daily range): BP systolic 119–158; BP diastolic 54–65; TEMP 97.5–97.9; O2SAT 91–95
[2023-12-03] MEDS ORDERED: ROCURONIUM BROMIDE 50MG/5ML VIAL As Ordered ONE (07:10)
[2023-12-03] MEDS ORDERED: fentaNYL 100 MCG/2 ML INJECTION As Ordered ONE (07:10)
[2023-12-03] MEDS ORDERED: ePHEDrine SULFATE 25 MG/5 ML(5MG/ML) SYRINGE As Ordered ONE (07:10)
[2023-12-03] MEDS ORDERED: PHENYLephrine 500MCG 5ML (100MCG/ML) SYRINGE As Ordered ONE (07:10)
[2023-12-03] MEDS ORDERED: ONDANSETRON 4MG 2ML VIAL As Ordered ONE (07:10)
[2023-12-03] MEDS ORDERED: LIDOCAINE 2% 100MG/5ML SDV (FOR ANES.) As Ordered ONE (07:10)
[2023-12-03] MEDS ORDERED: SUGAMMADEX SODIUM 500 MG/5 ML VIAL (BRIDION) As Ordered ONE (07:11)
[2023-12-03] MEDS ORDERED: ZOSYN 3.375GM VIAL As Ordered ONE (07:54)
[2023-12-03] MEDS ORDERED: GLYCOPYRROLATE INJ 0.2 MG/ML 2 ML VIAL As Ordered ONE (08:05)
[2023-12-03] MEDS ORDERED: HYDROmorphone HCL 2MG/ML 1ML VIAL As Ordered ONE (08:12)
[2023-12-03] MEDS ORDERED: ACETAMINOPHEN 1000MG 100ML IV BAG As Ordered ONE (09:16)
[2023-12-03] MEDS: LIDOCAINE 1% SDV 30ML VIAL As Ordered ONE (10:13)
[2023-12-03] MEDS: ISOVUE-300 61% 100ML VIAL As Ordered ONE (10:38)
[2023-12-03] MEDS ORDERED: ISOVUE-M 300 61% 15ML VIAL As Ordered ONE (10:39)
[2023-12-03] MEDS ORDERED: GLUCAGON INJ 1MG VIAL As Ordered ONE (10:48)
[2023-12-03] MEDS ORDERED: ONDANSETRON 4MG 2ML VIAL IV PRN (11:50)
[2023-12-03] MEDS ORDERED: oxyCODONE 5MG TAB PO PRN (11:50)
[2023-12-03] MEDS ORDERED: fentaNYL 100 MCG/2 ML INJECTION IV PRN (11:50)
[2023-12-03] MEDS ORDERED: HYDROMORPHONE HCL 0.5 MG/ 0.5 ML SYRINGE IV PRN (11:50)
[2023-12-03] MEDS: LR 1,000 ML IV SCH (11:50)
[2023-12-03 13:37] LABS: BASO # 0.1 10^3/uL (0.0-0.2); BASO % 0.3 % (0.0-1.0); HEMATOCRIT 35.4 % (36.0-47.0); HEMOGLOBIN 10.8 g/dl (12.0-15.5); LYMPH # 0.4 10^3/uL (1.5-5.0); LYMPH % 2.5 % (24.0-44.0); MEAN CORPUSCULAR HEMOGLOBIN 30.9 pg (27.0-33.0); MEAN CORPUSCULAR HGB CONC 30.5 g/dl (32.0-36.5); MEAN CORPUSCULAR VOLUME 101.1 fl (80.0-96.0); MONO # 0.1 10^3/uL (0.0-0.8); MONO % 0.8 % (2.0-8.0); NEUTROPHILS # 16.5 10^3/uL (1.5-8.5); NEUTROPHILS % 95.2 % (36.0-66.0); PLATELET COUNT, AUTOMATED 301 10^3/uL (150-450); WHITE BLOOD COUNT 17.3 10^3/uL (4.0-10.0)
[2023-12-03 14:02] LABS: CALCIUM LEVEL 8.7 MG/DL (8.3-10.6); CREATININE FOR GFR 2.08 MG/DL (0.55-1.30); GLOMERULAR FILTRATION RATE 24.2 (>32); POTASSIUM SERUM 4.5 MMOL/L (3.5-5.1)
[2023-12-03 14:25] LABS: MAGNESIUM LEVEL 1.7 MG/DL (1.8-2.4)
[2023-12-03] MEDS: MAGNESIUM OXIDE 400MG TAB (MAG-OX) PO SCH (17:14)
[2023-12-04 02:00] VITALS: BP 139/63; TEMP 96.6; O2SAT 90
[2023-12-04 06:02] VITALS: BP 140/63; TEMP 98.6; O2SAT 92
[2023-12-04 07:44] LABS: BASO % 0.3 % (0.0-1.0); EOS % 0.1 % (0.0-3.0); HEMATOCRIT 28.9 % (36.0-47.0); HEMOGLOBIN 9.2 g/dl (12.0-15.5); LYMPH # 1.3 10^3/uL (1.5-5.0); LYMPH % 8.7 % (24.0-44.0); MEAN CORPUSCULAR HEMOGLOBIN 31.4 pg (27.0-33.0); MEAN CORPUSCULAR HGB CONC 31.8 g/dl (32.0-36.5); MEAN CORPUSCULAR VOLUME 98.6 fl (80.0-96.0); MONO # 1.1 10^3/uL (0.0-0.8); MONO % 7.5 % (2.0-8.0); NEUTROPHILS # 12.5 10^3/uL (1.5-8.5); NEUTROPHILS % 82.5 % (36.0-66.0); PLATELET COUNT, AUTOMATED 293 10^3/uL (150-450); RED BLOOD COUNT 2.93 10^6/uL (4.00-5.40); WHITE BLOOD COUNT 15.1 10^3/uL (4.0-10.0)
[2023-12-04 08:09] LABS: CALCIUM LEVEL 8.5 MG/DL (8.3-10.6); CREATININE FOR GFR 2.62 MG/DL (0.55-1.30); GLOMERULAR FILTRATION RATE 18.5 (>32); POTASSIUM SERUM 4.4 MMOL/L (3.5-5.1)
[2023-12-04 10:04] VITALS: BP 144/54; TEMP 97; O2SAT 92
[2023-12-04] MEDS: NS 1,000 ML IV SCH (10:31)
[2023-12-04 14:11] VITALS: BP 145/56; TEMP 97.5; O2SAT 94
[2023-12-04] MEDS: ALBUTEROL 90 MCG/ACT 8GM HFA INHALER INH PRN (16:32)
[2023-12-04 17:32] LABS: MAGNESIUM LEVEL 1.7 MG/DL (1.8-2.4)
[2023-12-04 18:10] VITALS: BP 154/55; TEMP 97.9; O2SAT 93
[2023-12-04] MEDS ORDERED: SILVER NITRATE APPLICATOR (1 = QTY 10) As Ordered ONE (21:38)
[2023-12-05] VITALS (12 sets, daily range): BP systolic 143–160; BP diastolic 55–89; TEMP 97.5–97.9; O2SAT 90–94
[2023-12-05] MEDS: CHLORASEPTIC SPRAY MT PRN (04:18)
[2023-12-05 07:07] LABS: BASO % 0.3 % (0.0-1.0); EOS # 0.1 10^3/uL (0.0-0.5); HEMATOCRIT 21.4 % (36.0-47.0); LYMPH # 1.1 10^3/uL (1.5-5.0); LYMPH % 7.6 % (24.0-44.0); MEAN CORPUSCULAR HEMOGLOBIN 31.2 pg (27.0-33.0); MEAN CORPUSCULAR HGB CONC 32.2 g/dl (32.0-36.5); MEAN CORPUSCULAR VOLUME 96.8 fl (80.0-96.0); MONO # 0.9 10^3/uL (0.0-0.8); MONO % 6.6 % (2.0-8.0); NEUTROPHILS # 11.7 10^3/uL (1.5-8.5); NEUTROPHILS % 83.3 % (36.0-66.0); PLATELET COUNT, AUTOMATED 226 10^3/uL (150-450); RED BLOOD COUNT 2.21 10^6/uL (4.00-5.40); WHITE BLOOD COUNT 14.1 10^3/uL (4.0-10.0)
[2023-12-05 07:12] LABS: HEMOGLOBIN 6.9 g/dl (12.0-15.5)
[2023-12-05 07:32] LABS: CALCIUM LEVEL 7.6 MG/DL (8.3-10.6); CREATININE FOR GFR 2.52 MG/DL (0.55-1.30); GLOMERULAR FILTRATION RATE 19.4 (>32)
[2023-12-05 16:57] LABS: HEMATOCRIT 31.3 % (36.0-47.0); MEAN CORPUSCULAR HEMOGLOBIN 32.2 pg (27.0-33.0); MEAN CORPUSCULAR HGB CONC 33.2 g/dl (32.0-36.5); MEAN CORPUSCULAR VOLUME 96.9 fl (80.0-96.0); PLATELET COUNT, AUTOMATED 204 10^3/uL (150-450); RED BLOOD COUNT 3.23 10^6/uL (4.00-5.40); WHITE BLOOD COUNT 14.9 10^3/uL (4.0-10.0)
[2023-12-05 17:01] LABS: HEMOGLOBIN 10.4 g/dl (12.0-15.5)
[2023-12-05] MEDS: NS 1,000 ML IV SCH (19:58)
[2023-12-05 21:33] LABS: HEMATOCRIT 30.3 % (36.0-47.0); MEAN CORPUSCULAR HEMOGLOBIN 31.5 pg (27.0-33.0); MEAN CORPUSCULAR VOLUME 95.6 fl (80.0-96.0); PLATELET COUNT, AUTOMATED 213 10^3/uL (150-450); RED BLOOD COUNT 3.17 10^6/uL (4.00-5.40); WHITE BLOOD COUNT 17.4 10^3/uL (4.0-10.0)
[2023-12-05] MEDS: MAGNESIUM GLUCONATE 500 MG TAB PO SCH (21:53)
[2023-12-05] MEDS: PANTOPRAZOLE 40MG VIAL IV SCH (21:54)
[2023-12-06 04:40] VITALS: BP 157/74; TEMP 97.7; O2SAT 91
[2023-12-06 06:44] LABS: BASO # 0.1 10^3/uL (0.0-0.2); BASO % 0.6 % (0.0-1.0); EOS # 0.4 10^3/uL (0.0-0.5); EOS % 2.3 % (0.0-3.0); HEMATOCRIT 27.8 % (36.0-47.0); LYMPH # 1.2 10^3/uL (1.5-5.0); LYMPH % 7.7 % (24.0-44.0); MEAN CORPUSCULAR HEMOGLOBIN 31.6 pg (27.0-33.0); MEAN CORPUSCULAR HGB CONC 32.4 g/dl (32.0-36.5); MEAN CORPUSCULAR VOLUME 97.5 fl (80.0-96.0); MONO # 0.9 10^3/uL (0.0-0.8); MONO % 5.7 % (2.0-8.0); NEUTROPHILS # 12.1 10^3/uL (1.5-8.5); NEUTROPHILS % 81.2 % (36.0-66.0); PLATELET COUNT, AUTOMATED 191 10^3/uL (150-450); RED BLOOD COUNT 2.85 10^6/uL (4.00-5.40)
[2023-12-06 07:02] LABS: CALCIUM LEVEL 7.5 MG/DL (8.3-10.6); CREATININE FOR GFR 2.23 MG/DL (0.55-1.30); GLOMERULAR FILTRATION RATE 22.3 (>32)
[2023-12-06 14:00] VITALS: BP 143/56; TEMP 97.7; O2SAT 94
[2023-12-06 19:35] LABS: HEMATOCRIT 27.2 % (36.0-47.0); HEMOGLOBIN 8.9 g/dl (12.0-15.5)
[2023-12-06 21:22] VITALS: BP 146/56; TEMP 97.7; O2SAT 93
[2023-12-07 05:14] LABS: BASO # 0.1 10^3/uL (0.0-0.2); BASO % 0.4 % (0.0-1.0); EOS # 0.5 10^3/uL (0.0-0.5); EOS % 3.9 % (0.0-3.0); HEMATOCRIT 25.7 % (36.0-47.0); HEMOGLOBIN 8.5 g/dl (12.0-15.5); LYMPH # 1.1 10^3/uL (1.5-5.0); LYMPH % 8.5 % (24.0-44.0); MEAN CORPUSCULAR HEMOGLOBIN 32.1 pg (27.0-33.0); MEAN CORPUSCULAR HGB CONC 33.1 g/dl (32.0-36.5); MONO # 0.8 10^3/uL (0.0-0.8); MONO % 6.2 % (2.0-8.0); NEUTROPHILS # 10.5 10^3/uL (1.5-8.5); NEUTROPHILS % 77.9 % (36.0-66.0); PLATELET COUNT, AUTOMATED 220 10^3/uL (150-450); RED BLOOD COUNT 2.65 10^6/uL (4.00-5.40); WHITE BLOOD COUNT 13.5 10^3/uL (4.0-10.0)
[2023-12-07 05:34] LABS: CALCIUM LEVEL 7.6 MG/DL (8.3-10.6); CREATININE FOR GFR 2.53 MG/DL (0.55-1.30); GLOMERULAR FILTRATION RATE 19.3 (>32); MAGNESIUM LEVEL 1.9 MG/DL (1.8-2.4); POTASSIUM SERUM 4.2 MMOL/L (3.5-5.1)
[2023-12-07 05:38] VITALS: BP 153/58; TEMP 97.3; O2SAT 93
[2023-12-07 14:00] VITALS: BP 156/58; TEMP 97.7; O2SAT 94
[2023-12-07 20:20] VITALS: BP 148/66; TEMP 97.5; O2SAT 90
[2023-12-08] VITALS (8 sets, daily range): BP systolic 168–177; BP diastolic 59–62; TEMP 97.7; O2SAT 85–92
[2023-12-08 06:30] LABS: BASO # 0.1 10^3/uL (0.0-0.2); BASO % 0.6 % (0.0-1.0); EOS # 0.8 10^3/uL (0.0-0.5); EOS % 6.5 % (0.0-3.0); HEMATOCRIT 26.2 % (36.0-47.0); HEMOGLOBIN 8.4 g/dl (12.0-15.5); LYMPH # 1.1 10^3/uL (1.5-5.0); LYMPH % 9.5 % (24.0-44.0); MEAN CORPUSCULAR HGB CONC 32.1 g/dl (32.0-36.5); MEAN CORPUSCULAR VOLUME 96.7 fl (80.0-96.0); MONO # 0.8 10^3/uL (0.0-0.8); MONO % 6.3 % (2.0-8.0); NEUTROPHILS # 8.8 10^3/uL (1.5-8.5); NEUTROPHILS % 73.7 % (36.0-66.0); PLATELET COUNT, AUTOMATED 265 10^3/uL (150-450); RED BLOOD COUNT 2.71 10^6/uL (4.00-5.40); WHITE BLOOD COUNT 11.9 10^3/uL (4.0-10.0)
[2023-12-08 06:51] LABS: CALCIUM LEVEL 8.1 MG/DL (8.3-10.6); CREATININE FOR GFR 2.87 MG/DL (0.55-1.30); GLOMERULAR FILTRATION RATE 16.7 (>32); MAGNESIUM LEVEL 1.8 MG/DL (1.8-2.4); POTASSIUM SERUM 4.3 MMOL/L (3.5-5.1)
[2023-12-08] MEDS ORDERED: ZOSY1SOL4 IV (11:30)
[2023-12-08] MEDS ORDERED: AMLO10TA PO (11:30)
[2023-12-08] MEDS ORDERED: PROT1TAB2 PO (11:30)
[2023-12-08] MEDS ORDERED: ALLO100T PO (11:30)
[2023-12-08] MEDS: SIMETHICONE 80MG CHEW TAB PO PRN (15:14)
== END 2023-12-08 15:32 | DRG 329 ==
LOC: M ED 14:43 → EDBD 14:43 → M ED INP 21:39 → ENRESERV 11-25 01:58 → M MSPAV 11-25 03:07
PROVIDERS: ADMIT Internal Medicine; ATTEND Internal Medicine
PROC: 0FB98ZX Excision of Common Bile Duct, Via Natural or Artificial Opening Endoscopic, Diagnostic (ICD-10-PCS; 2023-11-28)
PROC: 0DJ08ZZ Inspection of Upper Intestinal Tract, Via Natural or Artificial Opening Endoscopic (ICD-10-PCS; 2023-11-28)
PROC: 0F7D8DZ Dilation of Pancreatic Duct with Intraluminal Device, Via Natural or Artificial Opening Endoscopic (ICD-10-PCS; 2023-12-03)
PROC: 0D1N4Z4 Bypass Sigmoid Colon to Cutaneous, Percutaneous Endoscopic Approach (ICD-10-PCS; principal; 2023-12-03 07:30)
PROC: 30233N1 Transfusion of Nonautologous Red Blood Cells into Peripheral Vein, Percutaneous Approach (ICD-10-PCS; 2023-12-05)
DX: K57.20 Diverticulitis of large intestine with perforation and abscess without bleeding (principal); K65.1 Peritoneal abscess; I50.33 Acute on chronic diastolic (congestive) heart failure; K83.1 Obstruction of bile duct; N32.1 Vesicointestinal fistula; N17.9 Acute kidney failure, unspecified; N39.0 Urinary tract infection, site not specified; E87.1 Hypo-osmolality and hyponatremia; I13.0 Hypertensive heart and chronic kidney disease with heart failure and stage 1 through stage 4 chronic kidney disease, or unspecified chronic kidney disease; K91.89 Other postprocedural complications and disorders of digestive system; J98.11 Atelectasis; D62 Acute posthemorrhagic anemia; L40.9 Psoriasis, unspecified; K59.00 Constipation, unspecified; M10.9 Gout, unspecified; K21.9 Gastro-esophageal reflux disease without esophagitis; Z96.642 Presence of left artificial hip joint; E78.5 Hyperlipidemia, unspecified; J45.909 Unspecified asthma, uncomplicated; I73.9 Peripheral vascular disease, unspecified; I77.1 Stricture of artery; K76.0 Fatty (change of) liver, not elsewhere classified; I87.2 Venous insufficiency (chronic) (peripheral); E55.9 Vitamin D deficiency, unspecified; K29.50 Unspecified chronic gastritis without bleeding; N18.30 Chronic kidney disease, stage 3 unspecified; R94.5 Abnormal results of liver function studies; E87.5 Hyperkalemia; K20.90 Esophagitis, unspecified without bleeding; E83.42 Hypomagnesemia; Z88.8 Allergy status to other drugs, medicaments and biological substances; Z79.899 Other long term (current) drug therapy; Z87.891 Personal history of nicotine dependence; K31.7 Polyp of stomach and duodenum; Z90.49 Acquired absence of other specified parts of digestive tract; K80.50 Calculus of bile duct without cholangitis or cholecystitis without obstruction

== ENCOUNTER 2023-12-08 14:02 | Inpatient (IN) | payer MEDICARE ==
[~2023-12-08] VITALS: Ht 157.5 cm; Wt 78.2 kg
[~2023-12-08 14:02] MED LIST changes: +ALLO100T PO; +AMLO10TA PO; +FLON1SPR; +LEVO1TAB40 PO; +MAGN400T2 PO; +OCUVTAB4 PO; +PROT1TAB2 PO; +ZOSY1SOL4 IV
[2023-12-08] MEDS ORDERED: ALBUTEROL 90 MCG/ACT 8GM HFA INHALER INH PRN (15:15)
[2023-12-08] MEDS ORDERED: ACETAMINOPHEN TAB 650MG DOSE (2X325MG) PO PRN (15:15)
[2023-12-08] MEDS ORDERED: MORPHINE SULFATE ORAL SOLN 10 MG/5 ML UD PO PRN (15:15)
[2023-12-08] MEDS ORDERED: FLUTICASONE PROP 0.05% NASAL SPRAY 16 GM (FLONASE) PRN (15:15)
[2023-12-08 16:00] VITALS: BP 137/63; TEMP 98.2; O2SAT 70
[2023-12-08] MEDS: ONDANSETRON 4MG ORAL DISINTEGRATING TAB PO PRN (16:45)
[2023-12-08] MEDS: PIPERACILLIN/TAZOBACTAM SOD 2.25 GM in D5W MINI-BAG PLUS 50 ML IV SCH (17:28)
[2023-12-08 19:45] VITALS: BP 134/60; TEMP 98.2; O2SAT 90
[2023-12-08] MEDS: MAGNESIUM GLUCONATE 500 MG TAB PO SCH (21:17)
[2023-12-08] MEDS: PANTOPRAZOLE 40MG TAB (PROTONIX) PO SCH (21:17)
[2023-12-09 05:45] VITALS: BP 164/70; TEMP 96.9; O2SAT 90
[2023-12-09 06:57] LABS: HEMATOCRIT 32.4 % (36.0-47.0); HEMOGLOBIN 9.9 g/dl (12.0-15.5); MEAN CORPUSCULAR HEMOGLOBIN 31.5 pg (27.0-33.0); MEAN CORPUSCULAR HGB CONC 30.6 g/dl (32.0-36.5); MEAN CORPUSCULAR VOLUME 103.2 fl (80.0-96.0); PLATELET COUNT, AUTOMATED 233 10^3/uL (150-450); RED BLOOD COUNT 3.14 10^6/uL (4.00-5.40); WHITE BLOOD COUNT 10.4 10^3/uL (4.0-10.0)
[2023-12-09] MEDS: LACTOBACILLUS ACIDOPHILUS CAP (BACID) PO SCH (07:46)
[2023-12-09] MEDS: LIDOCAINE 5% (LIDODERM) PATCH TOP SCH (07:47)
[2023-12-09] MEDS: VITAMIN D 1,000 INTERNATIONAL UNITS TABLET PO SCH (07:48)
[2023-12-09] MEDS: allopurinoL 100 MG TAB PO SCH (07:48)
[2023-12-09] MEDS: CLOPIDOGREL 75 MG TAB PO SCH (08:10)
[2023-12-09] MEDS: HEPARIN SOD (PORCINE) 5000UNITS/ML 1ML VIAL/SYRINGE SC SCH (08:10)
[2023-12-09] MEDS: NS 1,000 ML IV SCH (08:10)
[2023-12-09 08:21] LABS: CALCIUM LEVEL 8.9 MG/DL (8.3-10.6); CREATININE FOR GFR 3.02 MG/DL (0.55-1.30); GLOMERULAR FILTRATION RATE 15.7 (>32); POTASSIUM SERUM 3.7 MMOL/L (3.5-5.1)
[2023-12-09 08:23] LABS: TOTAL 25(OH) VITAMIN D 38.2 NG/ML (20.0-100.0)
[2023-12-09] MEDS: LACTOBACILLUS ACIDOPHILUS CAP (BACID) PEG SCH (09:00)
[2023-12-09] MEDS ORDERED: ONDANSETRON 4MG 2ML VIAL IV PRN (09:20)
[2023-12-09 09:38] LABS: URIC ACID 5.9 MG/DL (3.1-7.8)
[2023-12-09] MEDS: PANTOPRAZOLE 40MG VIAL IV SCH (10:48)
[2023-12-09] MEDS ORDERED: ACETAMINOPHEN 325MG/10.15ML UDC GT PRN (13:55)
[2023-12-09 14:00] VITALS: BP 140/61; TEMP 97.7; O2SAT 92
[2023-12-09] MEDS: D5W/0.45% SODIUM CHLORIDE 1,000 ML IV SCH (18:51)
[2023-12-09 20:00] VITALS: BP 151/70; TEMP 98; O2SAT 92
[2023-12-09] MEDS: SCOPOLAMINE 1MG TRANSDERMAL PATCH TOP SCH (20:11)
[2023-12-09] MEDS: MORPHINE 2 MG/ML 1ML VIAL IV PRN (23:18)
[2023-12-10 06:00] VITALS: BP 166/76; TEMP 97.5; O2SAT 90
[2023-12-10 07:04] LABS: URIC ACID 5.8 MG/DL (3.1-7.8)
[2023-12-10 07:06] LABS: CREATININE FOR GFR 2.69 MG/DL (0.55-1.30); MAGNESIUM LEVEL 1.7 MG/DL (1.8-2.4); POTASSIUM SERUM 3.5 MMOL/L (3.5-5.1)
[2023-12-10] MEDS: allopurinoL 100 MG TAB NG SCH (07:26)
[2023-12-10 07:31] LABS: HEMATOCRIT 27.1 % (36.0-47.0); HEMOGLOBIN 8.8 g/dl (12.0-15.5); MEAN CORPUSCULAR HGB CONC 32.5 g/dl (32.0-36.5); MEAN CORPUSCULAR VOLUME 98.5 fl (80.0-96.0); RED BLOOD COUNT 2.75 10^6/uL (4.00-5.40); WHITE BLOOD COUNT 10.8 10^3/uL (4.0-10.0)
[2023-12-10 07:33] LABS: PLATELET COUNT, AUTOMATED 337 10^3/uL (150-450)
[2023-12-10] MEDS ORDERED: **hydrALAZINE** 10 MG TAB PO PRN (08:05)
[2023-12-10] MEDS: MAG SULF 1GM/100ML (MAG RUN) 1 GM in IV 1 EA IV SCH (08:28)
[2023-12-10] MEDS: MIRALAX *UNIT DOSE* 17GM PACKET PO SCH (09:00)
[2023-12-10] MEDS: KCL 10MEQ IN D5/0.45NS 1000ML 1,000 ML IV SCH (11:31)
[2023-12-10 14:00] VITALS: BP 165/75; TEMP 97.1; O2SAT 94
[2023-12-10 19:41] VITALS: BP 158/70; TEMP 96.8; O2SAT 92
[2023-12-11] MEDS: CHLORASEPTIC SPRAY MT PRN (00:26)
[2023-12-11 05:31] VITALS: BP 178/74; TEMP 96.7; O2SAT 91
[2023-12-11 06:28] LABS: HEMATOCRIT 29.3 % (36.0-47.0); HEMOGLOBIN 9.6 g/dl (12.0-15.5); MEAN CORPUSCULAR HEMOGLOBIN 31.9 pg (27.0-33.0); MEAN CORPUSCULAR HGB CONC 32.8 g/dl (32.0-36.5); MEAN CORPUSCULAR VOLUME 97.3 fl (80.0-96.0); PLATELET COUNT, AUTOMATED 326 10^3/uL (150-450); RED BLOOD COUNT 3.01 10^6/uL (4.00-5.40); WHITE BLOOD COUNT 9.1 10^3/uL (4.0-10.0)
[2023-12-11 06:49] LABS: ALBUMIN 1.9 G/DL (3.2-5.2); BILIRUBIN,TOTAL 0.4 MG/DL (0.3-1.2); CALCIUM LEVEL 8.1 MG/DL (8.3-10.6); CREATININE FOR GFR 2.16 MG/DL (0.55-1.30); GLOMERULAR FILTRATION RATE 23.2 (>32); MAGNESIUM LEVEL 1.9 MG/DL (1.8-2.4); POTASSIUM SERUM 3.2 MMOL/L (3.5-5.1); TOTAL PROTEIN 4.8 G/DL (5.7-8.2)
[2023-12-11 10:01] VITALS: BP 176/77
[2023-12-11] MEDS ORDERED: HYDR-161 PO (10:42)
[2023-12-11] MEDS ORDERED: ACET325S6 GT (10:42)
[2023-12-11] MEDS ORDERED: CHLORSP MT (10:42)
[2023-12-11] MEDS ORDERED: TRAN1DIS4 TOP (10:42)
[2023-12-11 11:18] VITALS: BP 165/74
[2023-12-12] MEDS ORDERED: METAMUCIL (PSYLLIUM) PACKET PO SCH (09:00)
== END 2023-12-11 12:50 | disposition short-term general hospital (02) | DRG 948 ==
LOC: M PM&R 15:38
PROVIDERS: ADMIT Student in an Organized Health Care Education/Training Program; ATTEND Student in an Organized Health Care Education/Training Program
DX: R53.81 Other malaise (principal); I50.32 Chronic diastolic (congestive) heart failure; N39.0 Urinary tract infection, site not specified; I13.0 Hypertensive heart and chronic kidney disease with heart failure and stage 1 through stage 4 chronic kidney disease, or unspecified chronic kidney disease; K56.600 Partial intestinal obstruction, unspecified as to cause; K57.20 Diverticulitis of large intestine with perforation and abscess without bleeding; N32.1 Vesicointestinal fistula; N17.9 Acute kidney failure, unspecified; N18.30 Chronic kidney disease, stage 3 unspecified; Z74.1 Need for assistance with personal care; Z74.09 Other reduced mobility; I73.9 Peripheral vascular disease, unspecified; E78.5 Hyperlipidemia, unspecified; R11.2 Nausea with vomiting, unspecified; M10.9 Gout, unspecified; L40.9 Psoriasis, unspecified; K20.90 Esophagitis, unspecified without bleeding; J45.909 Unspecified asthma, uncomplicated; K21.9 Gastro-esophageal reflux disease without esophagitis; G89.18 Other acute postprocedural pain; D64.9 Anemia, unspecified; K76.0 Fatty (change of) liver, not elsewhere classified; E87.6 Hypokalemia; Z93.3 Colostomy status; Z79.52 Long term (current) use of systemic steroids; Z79.899 Other long term (current) drug therapy; Z88.8 Allergy status to other drugs, medicaments and biological substances; Z90.49 Acquired absence of other specified parts of digestive tract; Z90.79 Acquired absence of other genital organ(s); Z96.642 Presence of left artificial hip joint; Z95.828 Presence of other vascular implants and grafts; Z87.891 Personal history of nicotine dependence

== ENCOUNTER 2023-12-11 10:29 | Inpatient (IN) | payer MEDICARE ==
[2023-12-11] MEDS ORDERED: ACET325S6 GT (10:42)
[2023-12-11] MEDS ORDERED: HYDR-161 PO (10:42)
[2023-12-11] MEDS ORDERED: TRAN1DIS4 TOP (10:42)
[2023-12-11] MEDS ORDERED: CHLORSP MT (10:42)
[2023-12-11 14:35] VITALS: BP 182/65; TEMP 97.3; O2SAT 92
[2023-12-11] MEDS ORDERED: KCL 10MEQ IN D5/0.45NS 1000ML 1,000 ML IV SCH (15:00)
[2023-12-11] MEDS ORDERED: MORPHINE 2 MG/ML 1ML VIAL IV PRN (15:25)
[2023-12-11] MEDS ORDERED: GLUCAGON INJ 1MG VIAL SC PRN (15:25)
[2023-12-11] MEDS ORDERED: GLUCOSE 4GM CHEW TABLET PO PRN (15:25)
[2023-12-11] MEDS ORDERED: DEXTROSE 50% 50ML SYRINGE IV PRN (15:25)
[2023-12-11] MEDS ORDERED: ALBUTEROL SULFATE 2.5MG/0.5ML INH NEB SOLN NEB PRN (15:30)
[2023-12-11] MEDS: NS 1,000 ML IV SCH (15:57)
[2023-12-11] MEDS: KCL 10MEQ/100ML SWI (KRUN) 10 MEQ in IV 1 EA IV SCH (15:57)
[2023-12-11] MEDS: INSULIN LISPRO (NovoLOG) PER UNIT SC SCH (17:51)
[2023-12-11] MEDS: SODIUM CHLORIDE 0.9% INJ 10 ML SYR IV SCH (18:00)
[2023-12-11] MEDS: AMINO AC/ELECTROLYTE/DEX/CALC 2,000 ML IV SCH (18:46)
[2023-12-11] MEDS: FAT EMULSION IV 250 ML IV ONE (18:46)
[2023-12-11 20:30] VITALS: BP 170/68; TEMP 97.7; O2SAT 91
[2023-12-11] MEDS: HEPARIN SOD (PORCINE) 5000UNITS/ML 1ML VIAL/SYRINGE SC SCH (21:00)
[2023-12-11] MEDS: PANTOPRAZOLE 40MG VIAL IV SCH (21:04)
[2023-12-11] MEDS: **hydrALAZINE HCL** 25 MG TAB PO PRN (21:07)
[2023-12-11 22:30] VITALS: BP 174/60
[2023-12-12] VITALS (7 sets, daily range): BP systolic 152–188; BP diastolic 60–73; TEMP 97–98.4; O2SAT 91–95
[2023-12-12 06:22] LABS: HEMATOCRIT 27.3 % (36.0-47.0); HEMOGLOBIN 8.9 g/dl (12.0-15.5); MEAN CORPUSCULAR HEMOGLOBIN 31.9 pg (27.0-33.0); MEAN CORPUSCULAR HGB CONC 32.6 g/dl (32.0-36.5); MEAN CORPUSCULAR VOLUME 97.8 fl (80.0-96.0); PLATELET COUNT, AUTOMATED 323 10^3/uL (150-450); RED BLOOD COUNT 2.79 10^6/uL (4.00-5.40)
[2023-12-12 06:44] LABS: CALCIUM LEVEL 7.8 MG/DL (8.3-10.6); CREATININE FOR GFR 1.68 MG/DL (0.55-1.30); MAGNESIUM LEVEL 1.5 MG/DL (1.8-2.4); PHOSPHORUS LEVEL 2.5 MG/DL (2.4-5.1); POTASSIUM SERUM 3.3 MMOL/L (3.5-5.1)
[2023-12-12] MEDS: MIRALAX *UNIT DOSE* 17GM PACKET PO SCH (08:07)
[2023-12-12] MEDS: allopurinoL 100 MG TAB NG SCH (08:07)
[2023-12-12] MEDS: METAMUCIL (PSYLLIUM) PACKET PO SCH (08:07)
[2023-12-12] MEDS: CLOPIDOGREL 75 MG TAB PO SCH (08:07)
[2023-12-12] MEDS: MAG SULF 1GM/100ML (MAG RUN) 1 GM in IV 1 EA IV SCH (08:08)
[2023-12-12] MEDS: SCOPOLAMINE 1MG TRANSDERMAL PATCH TOP SCH (08:09)
[2023-12-12] MEDS: KCL 10MEQ/100ML SWI (KRUN) 10 MEQ in IV 1 EA IV SCH (12:01)
[2023-12-12] MEDS: **hydrALAZINE** 50 MG TAB PO PRN (14:54)
[2023-12-12] MEDS: FAT EMULSION IV 250 ML IV ONE (17:25)
[2023-12-12] MEDS: AMINO AC/ELECTROLYTE/DEX/CALC 2,000 ML IV SCH (17:25)
[2023-12-12] MEDS: INSULIN LISPRO (NovoLOG) PER UNIT SC SCH (17:26)
[2023-12-12] MEDS: METOPROLOL SUCC *XL* 25MG TAB (TopROL *XL*) PO SCH (18:20)
[2023-12-12] MEDS: SODIUM CHLORIDE 0.9% INJ 10 ML SYR IV PRN (20:12)
[2023-12-12] MEDS: RAMELTEON 8 MG TAB (ROZEREM) PO PRN (23:37)
[2023-12-13] MEDS: HALOPERIDOL 5MG/ML 1ML VIAL IV PRN (03:17)
[2023-12-13 04:18] VITALS: O2SAT 99
[2023-12-13 05:22] VITALS: BP 152/51; TEMP 97.7; O2SAT 94
[2023-12-13 06:38] LABS: BASO # 0.1 10^3/uL (0.0-0.2); BASO % 0.8 % (0.0-1.0); EOS # 0.5 10^3/uL (0.0-0.5); HEMATOCRIT 29.2 % (36.0-47.0); HEMOGLOBIN 9.4 g/dl (12.0-15.5); LYMPH # 1.1 10^3/uL (1.5-5.0); MEAN CORPUSCULAR HEMOGLOBIN 31.4 pg (27.0-33.0); MEAN CORPUSCULAR HGB CONC 32.2 g/dl (32.0-36.5); MEAN CORPUSCULAR VOLUME 97.7 fl (80.0-96.0); MONO # 0.7 10^3/uL (0.0-0.8); MONO % 5.5 % (2.0-8.0); NEUTROPHILS # 9.1 10^3/uL (1.5-8.5); NEUTROPHILS % 76.6 % (36.0-66.0); PLATELET COUNT, AUTOMATED 324 10^3/uL (150-450); RED BLOOD COUNT 2.99 10^6/uL (4.00-5.40); WHITE BLOOD COUNT 11.8 10^3/uL (4.0-10.0)
[2023-12-13 07:05] LABS: CALCIUM LEVEL 8.2 MG/DL (8.3-10.6); CREATININE FOR GFR 1.48 MG/DL (0.55-1.30); GLOMERULAR FILTRATION RATE 35.9 (>32); PHOSPHORUS LEVEL 2.5 MG/DL (2.4-5.1); POTASSIUM SERUM 3.7 MMOL/L (3.5-5.1)
[2023-12-13] MEDS ORDERED: PANT-23 PO (09:13)
[2023-12-13] MEDS ORDERED: ACET325O GT (09:13)
[2023-12-13] MEDS ORDERED: AMLO1TAB25 PO (09:13)
[2023-12-13] MEDS ORDERED: TRAN1DIS4 TOP (09:13)
[2023-12-13] MEDS ORDERED: CHLO1.4S7 MT (09:13)
[2023-12-13] MEDS ORDERED: ALLO100T PO (09:13)
[2023-12-13] MEDS ORDERED: HYDR-161 PO (09:13)
[2023-12-13] MEDS ORDERED: ZOSY1SOL4 IV (09:14)
[2023-12-13] MEDS ORDERED: HOME MED LIST COMPLETE! XX SCH (09:15)
[2023-12-13] MEDS: POTASSIUM CHLORIDE 10% LIQ 20MEQ/15ML UDC PO ONE (12:50)
[2023-12-13 14:00] VITALS: BP 177/60; TEMP 97.5; O2SAT 97
[2023-12-13] MEDS: FAT EMULSION IV 250 ML IV ONE (17:25)
[2023-12-13] MEDS: AMINO AC/ELECTROLYTE/DEX/CALC 2,000 ML IV SCH (17:25)
[2023-12-13] MEDS: INSULIN LISPRO (NovoLOG) PER UNIT SC SCH (17:32)
[2023-12-13 18:03] VITALS: BP 163/67
[2023-12-13] MEDS: traZODone 50 MG TAB PO SCH (20:53)
[2023-12-13] MEDS: **hydrALAZINE** 50 MG TAB PO SCH (20:54)
[2023-12-13 22:00] VITALS: BP 139/62; TEMP 97.5; O2SAT 96
[2023-12-14 06:00] VITALS: BP 186/76; TEMP 97.5; O2SAT 97
[2023-12-14 06:43] LABS: BASO # 0.1 10^3/uL (0.0-0.2); BASO % 0.8 % (0.0-1.0); EOS # 0.5 10^3/uL (0.0-0.5); EOS % 4.6 % (0.0-3.0); HEMATOCRIT 30.7 % (36.0-47.0); LYMPH # 1.2 10^3/uL (1.5-5.0); LYMPH % 10.6 % (24.0-44.0); MEAN CORPUSCULAR HEMOGLOBIN 31.7 pg (27.0-33.0); MEAN CORPUSCULAR HGB CONC 32.6 g/dl (32.0-36.5); MEAN CORPUSCULAR VOLUME 97.5 fl (80.0-96.0); MONO # 0.8 10^3/uL (0.0-0.8); MONO % 6.7 % (2.0-8.0); NEUTROPHILS # 8.6 10^3/uL (1.5-8.5); PLATELET COUNT, AUTOMATED 315 10^3/uL (150-450); RED BLOOD COUNT 3.15 10^6/uL (4.00-5.40); WHITE BLOOD COUNT 11.7 10^3/uL (4.0-10.0)
[2023-12-14 07:07] LABS: CALCIUM LEVEL 8.6 MG/DL (8.3-10.6); CREATININE FOR GFR 1.45 MG/DL (0.55-1.30); GLOMERULAR FILTRATION RATE 36.7 (>32); POTASSIUM SERUM 3.9 MMOL/L (3.5-5.1)
[2023-12-14] MEDS: KCL 10MEQ/100ML SWI (KRUN) 10 MEQ in IV 1 EA IV SCH (09:30)
[2023-12-14] MEDS: FUROSEMIDE 100MG/10ML VIAL IV ONE (09:38)
[2023-12-14 13:22] VITALS: BP 171/66
[2023-12-14] MEDS: ONDANSETRON 4MG 2ML VIAL IV PRN (21:37)
[2023-12-15] MEDS: ANALGESIC BALM CRM 3OZ TOP PRN (09:52)
[2023-12-15] MEDS: PANTOPRAZOLE 40MG TAB (PROTONIX) PO SCH (09:52)
[2023-12-15] MEDS: ACETAMINOPHEN TAB 650MG DOSE (2X325MG) PO PRN (12:13)
[2023-12-16] MEDS: allopurinoL 100 MG TAB PO SCH (10:01)
[2023-12-16] MEDS: MORPHINE 10MG/0.5ML ORAL CONCENTRATE SOLUTION U/D SL PRN (17:44)
[2023-12-16] MEDS: LORazepam 1 MG TAB PO PRN (22:44)
[2023-12-17] MEDS: MORPHINE 10MG/0.5ML ORAL CONCENTRATE SOLUTION U/D SL PRN (15:24)
[2023-12-18] MEDS: MORPHINE 10MG/0.5ML ORAL CONCENTRATE SOLUTION U/D SL PRN (04:02)
[2023-12-18] MEDS: diphenhydrAMINE 25MG CAP PO PRN (16:26)
[2023-12-19] MEDS: diphenhydrAMINE 25MG CAP PO PRN (01:54)
[2023-12-21] MEDS: MORPHINE 10MG/0.5ML ORAL CONCENTRATE SOLUTION U/D SL PRN (18:24)
[2023-12-23] MEDS: ATROPINE SULFATE 1% OPHTH SOLN 2ML BTL SL PRN (09:25)
[2023-12-23] MEDS ORDERED: MORPHINE 10MG/0.5ML ORAL CONCENTRATE SOLUTION U/D SL PRN (14:15)
== END 2023-12-23 18:00 | disposition expired | DRG 393 ==
LOC: M MSPAV 14:24
PROVIDERS: ADMIT Internal Medicine; ATTEND Internal Medicine
DX: K91.89 Other postprocedural complications and disorders of digestive system (principal); A41.9 Sepsis, unspecified organism; R65.21 Severe sepsis with septic shock; G93.41 Metabolic encephalopathy; I13.0 Hypertensive heart and chronic kidney disease with heart failure and stage 1 through stage 4 chronic kidney disease, or unspecified chronic kidney disease; N17.9 Acute kidney failure, unspecified; D62 Acute posthemorrhagic anemia; N39.0 Urinary tract infection, site not specified; I50.32 Chronic diastolic (congestive) heart failure; E46 Unspecified protein-calorie malnutrition; N82.4 Other female intestinal-genital tract fistulae; R57.1 Hypovolemic shock; Z66 Do not resuscitate; N18.30 Chronic kidney disease, stage 3 unspecified; B96.20 Unspecified Escherichia coli [E. coli] as the cause of diseases classified elsewhere; Z93.3 Colostomy status; I73.9 Peripheral vascular disease, unspecified; E78.5 Hyperlipidemia, unspecified; M10.9 Gout, unspecified; E55.9 Vitamin D deficiency, unspecified; J45.909 Unspecified asthma, uncomplicated; K21.9 Gastro-esophageal reflux disease without esophagitis; I87.2 Venous insufficiency (chronic) (peripheral); Z90.49 Acquired absence of other specified parts of digestive tract; Z96.642 Presence of left artificial hip joint; Z90.79 Acquired absence of other genital organ(s); Z79.2 Long term (current) use of antibiotics; Z79.899 Other long term (current) drug therapy; Z88.8 Allergy status to other drugs, medicaments and biological substances